=== PATIENT | male | born 1985 | race African-American/Black ===

== ENCOUNTER 2019-11-05 11:48 | Emergency (ER) | payer OTHER, SELFPAY ==
--- NOTE | ~2019-11-05 | CT_ITS ---
EXAMINATION: CT abdomen pelvis w con DATE: 11/05/2019 16:29 INDICATION: Abdominal pain. Nausea and vomiting. TECHNIQUE: Computed tomography (CT) of the abdomen and pelvis was performed with 100 mL Omnipaque 350 intravenous contrast. Automated exposure control and iterative reconstruction technique were employe d. The dose-length product was 675.19 mGy-cm. COMPARISON: CT abdomen and pelvis 07/19/2019, 06/01/19, ultrasound 07/20/19 FINDINGS: The visualized portions of the lung bases demonstrate mild atelectasis. No pleural effusion . The heart size is normal. No pericardial effusion. There is a 9 mm hyperenhancing mass in left hepa tic lobe, likely benign. The gallbladder, spleen, pancreas, adrenal glands, and right kidney are norm al. There is a 1.8 cm heterogeneous hyperdense mass in left kidney measuring soft tissue attenuation. There is diastases of the rectus abdominis muscles with an umbilical hernia containing nonobstructed small bowel. The prostate is mildly enlarged. There is diverticulosis of the colon without evidence of diverticulitis. The appendix is normal. There are no pathologically enlarged lymph nodes. There is no free intraperitoneal fluid. There is mild thoracic spondylosis. IMPRESSION: 1. Umbilical hernia containing nonobstructed small bowel. 2. 1.8 cm left kidney mass suspicious for renal cell carcinoma. Abdomen MRI without and with contrast is recommended. Reviewed, dictated and finalized at location A. MAINTAINER IMPRESSION: 1. Umbilical hernia containing nonobstructed small bowel. 2. 1.8 cm left kidney mass suspicious for renal cell carcinoma. Abdomen MRI wit hout and with contrast is recommended.
[2019-11-05 12:20] VITALS: BP 155/110; PULSE 96; RESP 16; TEMP 37.3; O2SAT 98
--- NOTE | 2019-11-05 13:15 | ED.ABDPAIN ---
HPI - Abdominal Pain General Chief Complaint: Abdominal Pain Stated Complaint: ABD PAIN X1D Time Seen by Provider: 11/05/19 13:06 Source: patient Mode of arrival: ambulatory Limitations: no limitations History of Present Illness HPI narrative: The pt is a 34 y/o male who presents to the ED c/o diffuse ABD pain onset one day ago. Pt states that the pain started in the right flank, but became more diffuse. Pt states that he vomited five times, and has had multiple episodes of diarrhea. Pt states that he has not tried any pain medication. Pt reports nausea and left-sided CP, but denies cough. MD elicited complaint: abdominal pain Onset (ago): day(s) (1) Location: diffuse (initially began in right flank ) Associated symptoms: nausea, vomiting, diarrhea and other (Left-sided CP) Treatments prior to arrival: other (None) Related Data Allergies Allergy/AdvReac Type Severity Reaction Status Date / Time codeine Allergy Mild Hives / Verified 12/07/19 13:29 Red Face morphine Allergy Mild Itching Verified 12/07/19 13:29 Review of Systems Review of Systems: Narrative: Review of Systems Respiratory: Negative for cough. Cardiovascular: Positive for left-sided chest pain. Gastrointestinal: Positive for nausea, vomiting, diffuse abdominal pain and diarrhea. All systems reviewed & are unremarkable except as noted in HPI and below PMFSH Social History Social History (Updated 12/07/19 @ 13:31 by Dunia Anderson) Social History: Smoking status: Never smoker Second hand tobacco smoke exposure: No Alcohol intake: current Drinks per week: 2 Substance use: never Substance use type: does not use Gender identity (if verbalized by the patient): Male Spiritual care concerns: No Agree to blood products: Yes Comments PCP: Dr. Shah Exam Narrative: Exam Narrative: Constitutional: Appears well-developed. No distress. HENT: Head: Normocephalic. Nose: Nose normal. Mouth/Throat: Oropharynx is clear and moist. Eyes: Conjunctiva are normal. Neck: Normal range of motion. Neck supple. Cardiovascular: Normal rate and regular rhythm. Pulmonary/Chest: Effort normal and breath sounds normal. Abdominal: Soft. There is no tenderness. Musculoskeletal: Normal range of motion. No edema. Neurological: Alert and oriented to person, place, and time. Skin: Skin is warm. No pallor. Psychiatric: Normal mood and affect. Course Consultations Consultation #1: Discussed with Dr. Prajapati, who will follow up regarding pt?s renal mass. Date: 11/05/19 Time: 17:34 Vital Signs Vital signs: Vital Signs Temperature 37.3 C 11/05/19 12:20 Pulse Rate 96 11/05/19 12:20 Respiratory Rate 16 11/05/19 12:20 Blood Pressure 155/110 H 11/05/19 12:20 Pulse Oximetry 98 11/05/19 12:20 Temperature 36.8 C 11/05/19 14:05 Pulse Rate 70 11/05/19 17:54 Respiratory Rate 14 11/05/19 17:54 Blood Pressure 152/92 H 11/05/19 17:54 Pulse Oximetry 98 11/05/19 17:54 MDM - Abdominal Pain Lab Data Result diagrams: 11/05/19 13:40 11/05/19 13:40 Labs: Lab Results 11/05/19 11/05/19 11/05/19 Range/Units 13:31 13:40 13:40 WBC 8.5 (4.5-10.0) K/mm3 RBC 5.49 (4.6-6.20) M/mm3 Hgb 15.9 (14.0-18.0) g/dL Hct 47.5 (42.0-52.0) % MCV 86.5 (80-100) fl MCH 29.0 (26-34) pg MCHC 33.5 (32-36) g/dl RDW 13.1 (11.5-14.5) % Plt Count 282 (150-375) k/mm3 MPV 10.3 (7.4-10.4) fl Immature Gran % (Auto) 0.5 (0-0.5) % Neut % (Auto) 53.7 (45.5-73.1) % Lymph % (Auto) 34.0 (18.3-44.2) % [place] % (Auto) 9.0 H (2.6-8.5) % Eos % (Auto) 1.6 (0-4.4) % Baso % (Auto) 1.2 (0.2-1.2) % Lymph # (Auto) 2.89 (0.9-3.2) K/mm3 [place] # (Auto) 0.8 H (0.1-0.6) K/mm3 Eos # (Auto) 0.1 (0-0.3) K/mm3 Baso # (Auto) 0.1 (0.0-0.1) K/mm3 Abs Immat Gran (auto) 0.04 H (0.00-0.031) K/mm3 Absolute Neuts (auto) 4.6 (1
--- NOTE | 2019-11-05 13:18 | ECG_ITS ---
Measurements Intervals [place] Rate: 76 P: 70 NM: 150 QRS: 27 QRSD: 93 T: 6 QT: 369 QTc: 415 Interpretive Statements SINUS RHYTHM NONSPECIFIC ST ELEVATION ANT/LAT LEADS BORDERLINE ST-T WAVE ABNORMALITY- INFERIOR LEADS BORDERLINE ECG Electronically Signed On 11-05-2019 16:27:18 DIGITAL PRINT OPERATOR by Muarizio Malin D.O.
[2019-11-05 13:49] LABS: Add Urine Microscopic? YES; Appearance Urine Clear (Clear); Bilirubin Urine Negative (Negative); Blood Urine Negative (Negative); Color Urine Yellow (Yellow); Glucose Urine UA Negative (Negative); Ketones Urine Negative (Negative); Leukocyte Esterase Ur Negative LEU/UL (Negative); Mucus Urine Rare /lpf; Nitrate Urine Negative (Negative); Protein Urine 1+ mg/dL (Negative); RBC Urine 0-2 /hpf (0-2); Squamous Epithelial Cell Urine Rare /hpf (Few); Urobilinogen Urine Negative mg/dL (<2.0); WBC Urine 0-3 /hpf
[2019-11-05 13:50] LABS: Specific Grav Ur 1.042 (1.001-1.035)
[2019-11-05 13:52] LABS: Basophils Absolute Auto 0.1 K/mm3 (0.0-0.1); Basophils Percent Auto 1.2 % (0.2-1.2); Eosinophils Absolute Auto 0.1 K/mm3 (0-0.3); Eosinophils Percent Auto 1.6 % (0-4.4); Hematocrit 47.5 % (42.0-52.0); Hemoglobin 15.9 g/dL (14.0-18.0); Immature Granulocyte Absolute 0.04 K/mm3 (0.00-0.031); Immature Granulocyte Percent A 0.5 % (0-0.5); Lymphocytes Absolute Auto 2.89 K/mm3 (0.9-3.2); Mean Corpuscular HGB Conc 33.5 g/dl (32-36); Mean Corpuscular Volume 86.5 fl (80-100); Mean Platelet Volume 10.3 fl (7.4-10.4); Monocytes Absolute Auto 0.8 K/mm3 (0.1-0.6); Neutrophils Absolute Auto 4.6 K/mm3 (1.3-6.7); Neutrophils Percent Auto 53.7 % (45.5-73.1); Platelet Count Result 282 k/mm3 (150-375); Red Blood Count 5.49 M/mm3 (4.6-6.20); Red Cell Distribution Width 13.1 % (11.5-14.5); White Blood Count 8.5 K/mm3 (4.5-10.0)
[2019-11-05] MEDS: DICYCLOMINE HCL INJ 20 MG/2 ML VIAL IM (13:54)
[2019-11-05] MEDS: SODIUM CHLORIDE 0.9% IV 1,000 ML 999 ML IV CONT (13:54)
[2019-11-05] MEDS: ONDANSETRON INJ 4 MG/2 ML VIAL IV PUSH (13:54)
[2019-11-05 14:05] VITALS: BP 158/72; PULSE 77; RESP 16; TEMP 36.8; O2SAT 98
[2019-11-05 14:20] LABS: Troponin I < 0.012 ng/mL (0.000-0.034)
[2019-11-05 15:54] LABS: Alanine Aminotransferase 27 U/L (4-50); Albumin Level 4.9 g/dL (3.5-5.1); Alkaline Phosphatase 78 U/L (38-126); Aspartate Amino Transferase 39 U/L (17-59); Bilirubin,Total 0.7 mg/dL (0.2-1.3); Blood Urea Nitrogen 14 mg/dL (9-20); Calcium 9.2 mg/dL (8.4-10.2); Carbon Dioxide 26 mmol/L (22-30); Chloride 95 mmol/L (98-107); Estimated CRCL calculation 124 ml/min; Estimated Glomerular Filt Rate > 60; Glucose 98 mg/dL (75-110); Lipase 50 U/L (23-300); Potassium 3.6 mmol/L (3.4-5.0); Sodium 137 mmol/L (137-145)
--- NOTE | 2019-11-05 15:57 | PC.NURSE ---
Called lab to ask about a CMP and Lipase that was sent down at 1400 and staff stated they would run it. Completed at 1556.
[2019-11-05] MEDS: KETOROLAC 30 MG/ML VIAL (*BKC) IV PUSH (16:15)
[2019-11-05 16:36] VITALS: BP 143/93; PULSE 77; RESP 18; O2SAT 98
[2019-11-05 17:27] LABS: Troponin I < 0.012 ng/mL (0.000-0.034)
[2019-11-05 17:54] VITALS: BP 152/92; PULSE 70; RESP 14; O2SAT 98
== END 2019-11-05 18:00 | disposition home or self-care (01) ==
PROVIDERS: Emergency Provider Emergency Medicine; PCP Internal Medicine
DX: K52.9 Noninfective gastroenteritis and colitis, unspecified (principal); N28.89 Other specified disorders of kidney and ureter; K42.9 Umbilical hernia without obstruction or gangrene
CPT/HCPCS: 36415; 74177; 80053; 81001; 83690; 84484; 85025; 93005; 96361; 96372; 96374; 96375; 99284; J0500; J1885; J2405; J7030; Q9967

== ENCOUNTER 2019-11-27 07:02 | Inpatient (IN) | payer OTHER, SELFPAY ==
--- NOTE | ~2019-11-27 | CT_ITS ---
EXAMINATION: CT abdomen pelvis w con INDICATION: Diffuse abdominal pain TECHNIQUE: Computed tomographic images of the abdomen and pelvis were obtained after the administrati on of 100 cc of Omnipaque 350 intravenous contrast. The dose-length product (DLP) was 659.62 mGy-cm. Automated exposure control and iterative reconstruction technique were employed. COMPARISON: 11/05/2019 FINDINGS: The lung bases are clear. The heart size is normal. Again seen is a 9 mm hyperenhancing mas s of the left hepatic lobe, likely focal nodular hyperplasia or flash filling hemangioma. The spleen, gallbladder, and adrenal glands are normal. There is a small amount of fluid near the tail of the pa ncreas. The pancreas itself appears to enhance normally. The right kidney is unremarkable. There is a 2.2 cm enhancing mass of the left kidney. No pathologically enlarged abdominal or pelvic lymph nodes are identified. There is no free intraperitoneal gas or evidence of bowel obstruction. The appendix is normal. Again noted is diastases of the rectus abdominis muscles with an umbilical hernia containi ng nonobstructed small bowel. IMPRESSION: 1. Findings suggestive of acute interstitial edematous pancreatitis with acute peripancreatic fluid c ollection. 2. Indeterminate left kidney mass again seen, concerning for renal cell carcinoma. Nonemergent follow -up by MRI without and with contrast is recommended. Reviewed, dictated and finalized at location A. ENGINEER IMPRESSION: 1. Findings suggestive of acute interstitial edematous pancreatitis with acute peripancreatic fluid collection. 2. Indeterminate left kidney mass again seen, concerning for renal cell carcino ma. Nonemergent follow-up by MRI without and with contrast is recommended.
[2019-11-27 07:07] VITALS: BP 174/99; PULSE 95; RESP 16; TEMP 37.1; O2SAT 100
--- NOTE | 2019-11-27 07:11 | ED.ABDPAIN ---
HPI - Abdominal Pain General Chief Complaint: Abdominal Pain Stated Complaint: ABD PAIN Time Seen by Provider: 11/27/19 07:05 Source: patient Mode of arrival: ambulatory Limitations: no limitations History of Present Illness HPI narrative: 34 yo male who presents with diffuse abdominal pain with vomiting and diarrhea. Patient states at 2 am he develop diffuse abdominal pain . He states the nurse at his job gave him GERD medication. He has had multiple episodes of nausea and vomiting with his pain. He also reports 1 episodes of nonbloody diarrhea. He denies fever or chills . He states his pain has gradually worsened . He was evaluated at [place] 3 weeks ago for similar pain , and he is scheduled for follow up appointment with PCP next month. MD elicited complaint: abdominal pain Onset (ago): hour(s) (5 hours) Pain Consistency: constant Location: diffuse Severity: similar to previous episodes Associated symptoms: nausea, vomiting and diarrhea Related Data Home Medications Medication Instructions Recorded Confirmed metoprolol tartrate 50 mg BID 11/27/19 11/27/19 Allergies Allergy/AdvReac Type Severity Reaction Status Date / Time codeine Allergy Unknown Hives / Verified 11/27/19 07:10 Red Face morphine Allergy Unknown Itching Verified 11/27/19 07:10 Review of Systems Review of Systems: All systems reviewed & are unremarkable except as noted in HPI and below Constitutional: Constitutional: Reports weakness Respiratory: Respiratory: Denies cough and Denies dyspnea Gastrointestinal: Gastrointestinal: Reports abdominal pain, Reports diarrhea, Reports nausea and Reports vomiting Genitourinary: Genitourinary: Denies hematuria, Denies oliguria and Denies dysuria Musculoskeletal: Musculoskeletal: Reports back pain PMFSH Past Medical History Medical History Gout HTN (hypertension) Pancreatitis Surgical History Surgical History No history of previous surgery Family History Family History Father Hypertension Social History Social History Smoking status: Never smoker Alcohol intake: current Drinks per week: 2 Substance use: never Gender identity (if verbalized by the patient): Male Spiritual care concerns: No Agree to blood products: Yes Exam Narrative: Exam Narrative: GENERAL: Well-appearing, well-nourished, and in mild distress. HEAD: Normocephalic, atraumatic EYES: PERRLA and EOMI, conjunctiva clear without discharge THROAT:Mucous membranes moist, Oropharynx normal without erythema, exudate, peritonsillar swelling or fluctuance NECK: Supple, without lymphadenopathy or mass RESPIRATORY: No respiratory distress, Airway patent, Respirations non-labored, Clear to auscultation without rales, rhonchi or wheeze HEART: Regular rate and rhythm. No murmur heard. Normal peripheral pulses. ABDOMEN: Soft,Diffuse, nondistended, normal active bowel sounds. No masses. No rebound or guarding, No organomegaly. EXTREMITIES: No edema, normal strength with full range of motion. SKIN: Warm, dry, normal color without rash NEURO: Alert and oriented x3. CN 2-12 grossly intact. No focal deficits. PSYCH: Normal mood and affect. Course Reevaluation(s) Reevaluation #1: I Discussed with patient that he may have pancreatitis. He states he has not drank alcohol in awhile but his family member states that is not true and they believe he was drunk 3 days ago. Patient states his pain started after eating an dish with corn and spices. Date: 11/27/19 Time: 07:41 Consultations Consultation #1: accepts patient to the medical floor. Date: 11/27/19 Time: 09:13 Vital Signs Vital signs: Vital Signs Temperature 98.8 F 11/27/19 07:07 Pulse Rate 95 11/27/19 07:07 Re
[2019-11-27 07:23] LABS: Basophils Absolute Auto 0.1 K/mm3 (0.0-0.1); Basophils Percent Auto 1.3 % (0.2-1.2); Eosinophils Absolute Auto 0.2 K/mm3 (0-0.3); Hematocrit 50.5 % (42.0-52.0); Hemoglobin 17.1 g/dL (14.0-18.0); Immature Granulocyte Absolute 0.02 K/mm3 (0.00-0.031); Immature Granulocyte Percent A 0.2 % (0-0.5); Lymphocytes Absolute Auto 2.42 K/mm3 (0.9-3.2); Mean Corpuscular HGB Conc 33.9 g/dl (32-36); Mean Corpuscular Hemoglobin 28.8 pg (26-34); Mean Corpuscular Volume 85.2 fl (80-100); Mean Platelet Volume 10.3 fl (7.4-10.4); Monocytes Absolute Auto 0.5 K/mm3 (0.1-0.6); Monocytes Percent Auto 6.1 % (2.6-8.5); Neutrophils Absolute Auto 5.4 K/mm3 (1.3-6.7); Neutrophils Percent Auto 62.4 % (45.5-73.1); Platelet Count Result 291 k/mm3 (150-375); Red Blood Count 5.93 M/mm3 (4.6-6.20); Red Cell Distribution Width 12.8 % (11.5-14.5); White Blood Count 8.6 K/mm3 (4.5-10.0)
[2019-11-27 07:34] LABS: Alanine Aminotransferase 58 U/L (4-50); Albumin Level 5.1 g/dL (3.5-5.1); Alkaline Phosphatase 107 U/L (38-126); Aspartate Amino Transferase 89 U/L (17-59); Blood Urea Nitrogen 18 mg/dL (9-20); Calcium 9.7 mg/dL (8.4-10.2); Carbon Dioxide 25 mmol/L (22-30); Chloride 93 mmol/L (98-107); Estimated Glomerular Filt Rate > 60; Glucose 100 mg/dL (75-110); Lipase 644 U/L (23-300); Potassium 3.9 mmol/L (3.4-5.0); Sodium 139 mmol/L (137-145)
[2019-11-27] MEDS: ONDANSETRON INJ 4 MG/2 ML VIAL IV PUSH ×2 (07:43→08:41)
[2019-11-27] MEDS: KETOROLAC 30 MG/ML VIAL (*BKC) IV PUSH (07:43)
[2019-11-27] MEDS: LACTATED RINGERS 1,000 ML 999 ML IV CONT (07:44)
[2019-11-27 08:27] LABS: Add Urine Microscopic? YES; Appearance Urine Clear (Clear); Bilirubin Urine Negative (Negative); Blood Urine Negative (Negative); Color Urine Yellow (Yellow); Glucose Urine UA Negative (Negative); Ketones Urine Trace mg/dL (Negative); Leukocyte Esterase Ur Negative LEU/UL (Negative); Mucus Urine Rare /lpf; Nitrate Urine Negative (Negative); Protein Urine 1+ mg/dL (Negative); RBC Urine 0-2 /hpf (0-2); Squamous Epithelial Cell Urine Rare /hpf (Few); Urobilinogen Urine Negative mg/dL (<2.0); WBC Urine 0-3 /hpf
[2019-11-27 08:30] LABS: Specific Grav Ur 1.058 (1.001-1.035)
[2019-11-27] MEDS: HYDROMORPHONE HCL 1 MG/ML INJ IV PUSH ×2 (08:41→11:57)
[2019-11-27 09:17] VITALS: BP 158/93; PULSE 85; RESP 16; O2SAT 100
--- NOTE | 2019-11-27 10:05 | ADMGEN ---
This patient, Baldomero Gallego, was admitted to Medical Room 341-01. Patient/family oriented to hospital policies and general routines including ID bracelet, bed and alarms, visiting hours, pain management, procedures, bathroom and other care routines, personal items, smoking policy, room service/diet, and visiting hours. Valuables list has been completed. Information on how to activate the Rapid Response Team has been discussed. Patient/Family are encouraged to report perceived risks to care and to ask questions if they do not understand what they are told or what they should do.
[2019-11-27] MEDS: LACTATED RINGERS 1,000 ML 125 ML IV CONT ×2 (10:12→19:12)
[2019-11-27 10:16] VITALS: BP 153/98; PULSE 77; RESP 18; TEMP 36.2; O2SAT 97; BMI 34.2
--- NOTE | 2019-11-27 12:07 | PM.IMHP ---
H&P: HPI History of Present Illness Chief complaint: acute pancreatitis Narrative: Baldomero Gallego is a 34 year old male was in his usual state of health until 2:00 a.m. this morning. He was at work on his lunch break when he developed severe epigastric pain radiating to lower substernal area and straight through to his back. It was associated with nausea vomiting and loose stool. No bleeding. No fevers chills or sweats. The pain was similar to his acute pancreatitis in July of 2019. EMS was summoned he is brought to the emergency department we was found to have evidence for pancreatic inflammation on CT scan as well as elevated lipase. Patient was drinking a pt of hard liquor every week in day and every day off work. Since July he is decreased to only twice a week and some days only 2 beers some days a pt of vodka Review of Systems Review of Systems: All systems reviewed & are unremarkable except as noted in HPI and below PMFSH Past Medical History Medical History Gout HTN (hypertension) Pancreatitis Surgical History Surgical History No history of previous surgery Family History Family History Father Hypertension Social History Social History Smoking status: Never smoker Alcohol intake: current Drinks per week: 2 Substance use: never Gender identity (if verbalized by the patient): Male Spiritual care concerns: No Agree to blood products: Yes Meds Home Medications and Allergies Home Medications Medication Instructions Recorded Confirmed Type metoprolol tartrate 50 mg BID 11/27/19 11/27/19 History Allergies Allergy/AdvReac Type Severity Reaction Status Date / Time codeine Allergy Unknown Hives / Verified 11/27/19 07:10 Red Face morphine Allergy Unknown Itching Verified 11/27/19 07:10 Vital Signs Vital Signs - 24 hr 11/27/19 07:07 11/27/19 09:17 11/27/19 10:16 Temperature 98.8 F 97.2 F L Pulse Rate 95 85 77 Respiratory Rate 16 16 18 Blood Pressure 174/99 H 158/93 H 153/98 H Pulse Oximetry 100 100 97 Exam Narrative: Exam Narrative: HEENT: EOMI, PERRL, pharyngeal mucosa pink and intact NECK: No JVD, adenopathy, or thyromegaly CHEST: Clear to auscultation. Normal effort. HEART: NL S1/S2, regular, no murmur ABDOMEN: BS+, soft, exquisite tenderness in the epigastrium Marli palpation without mass or bruit. No rebound or guarding. EXTREMITIES: No cyanosis, edema, or clubbing NEUROLOGIC: CN intact and symmetric to inspection. MUSCULOSKELETAL: Tone and strength symmetric. PSYCH: Alert. Oriented to person, place, and time. H&P: Results Labs Labs: Short CBC 11/27/19 Range/Units 07:16 WBC 8.6 (4.5-10.0) K/mm3 Hgb 17.1 (14.0-18.0) g/dL Hct 50.5 (42.0-52.0) % Plt Count 291 (150-375) k/mm3 BMP 11/27/19 07:16 Sodium 139 Potassium 3.9 Chloride 93 L Carbon Dioxide 25 BUN 18 Creatinine 0.90 Glucose 100 Calcium 9.7 Liver Function 11/27/19 Range/Units 07:16 Total Bilirubin 2.0 H (0.2-1.3) mg/dL AST 89 H (17-59) U/L ALT 58 H (4-50) U/L Alkaline Phosphatase 107 (38-126) U/L Albumin 5.1 (3.5-5.1) g/dL Urine 11/27/19 Range/Units 08:14 Urine Color Yellow (Yellow) Urine Appearance Clear (Clear) Urine pH 5.0 (5.0-9.0) Ur Specific [place] 1.058 H (1.001-1.035) Urine Protein 1+ H (Negative) mg/dL Urine Glucose (UA) Negative (Negative) mg/dL Assessment and Plan Assessment and plan (1) Pancreatitis: Code(s): K85.90 - Acute pancreatitis without necrosis or infection, unspecified Status: Acute Assessment and Plan: Bowel rest IVF Analgesics f/u lab (2) HTN (hypertension): Code(s): I10 - Essential (primary) hypertension
[2019-11-27 14:00] VITALS: BP 142/88; PULSE 72; RESP 18; TEMP 36.4; O2SAT 98
[2019-11-27] MEDS: THIAMINE HCL 200 MG/2 ML VIAL 100 MG IV PUSH (14:03)
[2019-11-27] MEDS: LORAZEPAM INJ 2 MG/ML VIAL 1 MG IV PUSH (14:03)
[2019-11-27] MEDS: HYDROMORPHONE HCL 2 MG/ML VIAL IV PUSH ×3 (16:12→23:25)
[2019-11-27 20:34] VITALS: BP 144/99; PULSE 98; RESP 18; TEMP 36.9; O2SAT 95
[2019-11-28] MEDS: HYDROMORPHONE HCL 2 MG/ML VIAL IV PUSH ×7 (02:37→21:38)
[2019-11-28] MEDS: LACTATED RINGERS 1,000 ML 125 ML IV CONT (04:35)
[2019-11-28 04:36] VITALS: BP 163/91; PULSE 97; RESP 16; TEMP 36.9; O2SAT 95
--- NOTE | 2019-11-28 04:40 | PC.NURSE ---
PO was sips of water to take meds.
[2019-11-28 05:38] LABS: Hematocrit 45.3 % (42.0-52.0); Hemoglobin 14.8 g/dL (14.0-18.0); Mean Corpuscular HGB Conc 32.7 g/dl (32-36); Mean Corpuscular Hemoglobin 28.6 pg (26-34); Mean Corpuscular Volume 87.5 fl (80-100); Mean Platelet Volume 10.5 fl (7.4-10.4); Platelet Count Result 174 k/mm3 (150-375); Red Blood Count 5.18 M/mm3 (4.6-6.20); Red Cell Distribution Width 12.4 % (11.5-14.5); White Blood Count 6.7 K/mm3 (4.5-10.0)
[2019-11-28] MEDS: ONDANSETRON INJ 4 MG/2 ML VIAL IV PUSH ×2 (06:14→10:49)
[2019-11-28 06:31] LABS: Hepatitis B Surface Antigen Negative (Negative)
[2019-11-28 06:36] LABS: HAV RESULT Negative (Negative)
[2019-11-28 06:49] LABS: Hepatitis C Virus Antibody Negative (Negative)
[2019-11-28 07:08] LABS: Alanine Aminotransferase 44 U/L (4-50); Albumin Level 3.9 g/dL (3.5-5.1); Alkaline Phosphatase 72 U/L (38-126); Aspartate Amino Transferase 53 U/L (17-59); Bilirubin,Total 1.4 mg/dL (0.2-1.3); Blood Urea Nitrogen 13 mg/dL (9-20); Calcium 8.8 mg/dL (8.4-10.2); Carbon Dioxide 27 mmol/L (22-30); Chloride 98 mmol/L (98-107); Estimated CRCL calculation 124 ml/min; Estimated Glomerular Filt Rate > 60; Glucose 96 mg/dL (75-110); Potassium 3.6 mmol/L (3.4-5.0); Sodium 136 mmol/L (137-145)
[2019-11-28 07:13] LABS: Lipase 2263 U/L (23-300)
[2019-11-28] MEDS: THIAMINE HCL 200 MG/2 ML VIAL 100 MG IV PUSH (09:34)
[2019-11-28 14:00] VITALS: BP 166/111; PULSE 113; RESP 22; TEMP 36.7; O2SAT 95
--- NOTE | 2019-11-28 15:21 | PM.IMPN ---
Progress Note: A&P Assessment and Plan (1) Pancreatitis: Code(s): K85.90 - Acute pancreatitis without necrosis or infection, unspecified Status: Acute Assessment and Plan: Bowel rest IVF Analgesics f/u lab with increased lipase 11/28, perhaps peaking, continue to monitor (2) HTN (hypertension): Code(s): I10 - Essential (primary) hypertension Status: Acute Assessment and Plan: Hold PO meds and monitor (3) Alcohol abuse: Code(s): F10.10 - Alcohol abuse, uncomplicated Status: Acute Assessment and Plan: CIWA protocol Subjective Date/time seen: 11/28/19 15:21 Interval history: Epigastric to back a little worse today, but controlled with hydromorphone. No n/v. No cp or sob. No diarrhea. No edema. Review of Systems Review of Systems: All systems reviewed & are unremarkable except as noted in HPI and below Exam Narrative: Exam Narrative: HEENT: EOMI, PERRL, pharyngeal mucosa pink and intact NECK: No JVD CHEST: Clear to auscultation. Normal effort. HEART: NL S1/S2, regular, no murmur ABDOMEN: BS+, soft, exquisite tenderness in the epigastrium Marli palpation without mass or bruit. No rebound or guarding. EXTREMITIES: No cyanosis, edema, or clubbing NEUROLOGIC: CN intact and symmetric to inspection. MUSCULOSKELETAL: Tone and strength symmetric. PSYCH: Alert. Oriented to person, place, and time. Objective Data Vital Signs Vital Signs: Vital Signs - 24 hr 11/27/19 20:34 11/28/19 04:36 11/28/19 14:00 Temperature 98.4 F 98.4 F 98.0 F Pulse Rate 98 97 113 H Respiratory Rate 18 16 22 H Blood Pressure 144/99 H 163/91 H 166/111 H Pulse Oximetry 95 95 95 Intake/Output Intake/Output: Intake & Output 11/25/19 11/26/19 11/27/19 11/28/19 23:59 23:59 23:59 23:59 Intake Total 2200 1766 Output Total 850 Balance 1350 1766 Meds/Results Medications: Active Medications Generic Name Dose Route Start Last Admin Trade Name Freq PRN Reason Stop Dose Admin Diphenhydramine HCl 25 mg 11/27/19 20:12 11/28/19 15:10 Benadryl Cap PO 25 mg Q6H PRN Administration Itching Hydromorphone HCl 2 mg 11/27/19 12:54 11/28/19 15:08 Dilaudid Inj IV PUSH 2 mg Q3H PRN Administration Pain Rated 7-10 Potassium Cl/Dextrose/Lact Ringer's 1,000 mls @ 100 mls/hr 11/28/19 08:45 11/28/19 10:44 Kcl 20 Meq/D5lr IV CONT 100 mls/hr .Q10H MINOO Administration Lorazepam 1 mg 11/27/19 12:43 11/27/19 14:03 Ativan Inj IV PUSH 1 mg Q4H PRN Administration Anxiety or CIWA score >7 Ondansetron HCl 4 mg 11/27/19 09:14 11/28/19 10:49 Zofran Inj IV PUSH 4 mg Q4H PRN Administration Nausea Thiamine HCl 100 mg 11/28/19 09:00 11/28/19 09:34 Thiamine Hcl Inj IV PUSH 100 mg QAM MINOO Administration Radiology Results: ITS Impressions Abdomen/Pelvis CT 11/27/19 08:08 IMPRESSION: 1. Findings suggestive of acute interstitial edematous pancreatitis with acute peripancreatic fluid collection. 2. Indeterminate left kidney mass again seen, concerning for renal cell carcinoma. Nonemergent follow-up by MRI without and with contrast is recommended. Labs Labs: Laboratory Results - last 24 hr 11/28/19 11/28/19 11/28/19 05:15 05:15 05:15 WBC 6.7 RBC 5.18 Hgb 14.8 Hct 45.3 MCV 87.5 MCH 28.6 MCHC 32.7 RDW 12.4 Plt Count 174 MPV 10.5 H Sodium 136 L Potassium 3.6 Chloride 98 Carbon Dioxide 27 BUN 13 D Creatinine 0.80 Estim Creat Clear Calc 124 Estimated GFR > 60 Glucose 96 Calcium 8.8 Total Bilirubin 1.4 H AST 53 ALT 44 Alkaline Phosphatase 72 Total Protein 7.0 Albumin 3.9 Lipase 2263 H Hepatitis A IgM Ab Negative Hep Bs Antigen Negative Hepatitis C Ab Screen Negative Quality VTE Prophylaxis VTE prophylaxis: mechanical ordered
[2019-11-28 21:42] VITALS: BP 139/86; PULSE 117; RESP 16; TEMP 37; O2SAT 95
[2019-11-29] MEDS: HYDROMORPHONE HCL 2 MG/ML VIAL IV PUSH ×8 (00:52→22:45)
[2019-11-29] MEDS: ACETAMINOPHEN 325 MG TABLET 650 MG PO (05:55)
[2019-11-29 06:00] VITALS: BP 143/88; PULSE 116; RESP 16; TEMP 36.5; O2SAT 97
[2019-11-29 06:04] LABS: Hematocrit 44.2 % (42.0-52.0); Hemoglobin 14.6 g/dL (14.0-18.0); Mean Corpuscular Hemoglobin 28.8 pg (26-34); Mean Corpuscular Volume 87.2 fl (80-100); Mean Platelet Volume 10.8 fl (7.4-10.4); Platelet Count Result 177 k/mm3 (150-375); Red Blood Count 5.07 M/mm3 (4.6-6.20); Red Cell Distribution Width 12.4 % (11.5-14.5)
[2019-11-29 06:20] LABS: Alanine Aminotransferase 30 U/L (4-50); Albumin Level 4.2 g/dL (3.5-5.1); Alkaline Phosphatase 72 U/L (38-126); Aspartate Amino Transferase 33 U/L (17-59); Bilirubin,Total 1.5 mg/dL (0.2-1.3); Blood Urea Nitrogen 8 mg/dL (9-20); Calcium 8.9 mg/dL (8.4-10.2); Carbon Dioxide 26 mmol/L (22-30); Chloride 95 mmol/L (98-107); Estimated CRCL calculation 101 ml/min; Estimated Glomerular Filt Rate > 60; Glucose 113 mg/dL (75-110); Lipase 458 U/L (23-300); Potassium 3.7 mmol/L (3.4-5.0); Sodium 135 mmol/L (137-145)
[2019-11-29] MEDS: THIAMINE HCL 200 MG/2 ML VIAL 100 MG IV PUSH (08:38)
[2019-11-29 14:00] VITALS: BP 145/93; PULSE 102; RESP 18; TEMP 36.1; O2SAT 94
--- NOTE | 2019-11-29 14:08 | PM.IMPN ---
Progress Note: A&P Assessment and Plan (1) Pancreatitis: Code(s): K85.90 - Acute pancreatitis without necrosis or infection, unspecified Status: Acute Assessment and Plan: Bowel rest IVF Analgesics f/u lab with increased lipase 11/28, perhaps peaking, as it declined 11/29 to 458 Change hydromorphone to q 2h prn Clinically improved (2) HTN (hypertension): Code(s): I10 - Essential (primary) hypertension Status: Acute Assessment and Plan: Hold PO meds and monitor (3) Alcohol abuse: Code(s): F10.10 - Alcohol abuse, uncomplicated Status: Acute Assessment and Plan: [facility] protocol Subjective Date/time seen: 11/29/19 14:08 Interval history: Epigastric to back a little better today, but controlled with hydromorphone. But analgesia only for 30 min or so. No n/v. No cp or sob. No diarrhea. No edema. Review of Systems Review of Systems: All systems reviewed & are unremarkable except as noted in HPI and below Exam Narrative: Exam Narrative: HEENT: EOMI, PERRL, pharyngeal mucosa pink and intact NECK: No JVD CHEST: Clear to auscultation. Normal effort. HEART: NL S1/S2, regular, no murmur ABDOMEN: BS+, soft, exquisite tenderness in the epigastrium Marli palpation without mass or bruit. No rebound or guarding. EXTREMITIES: No cyanosis, edema, or clubbing NEUROLOGIC: CN intact and symmetric to inspection. MUSCULOSKELETAL: Tone and strength symmetric. PSYCH: Alert. Oriented to person, place, and time. Objective Data Vital Signs Vital Signs: Vital Signs - 24 hr 11/28/19 21:42 11/29/19 06:00 Temperature 98.6 F 97.7 F Pulse Rate 117 H 116 H Respiratory Rate 16 16 Blood Pressure 139/86 143/88 H Pulse Oximetry 95 97 Intake/Output Intake/Output: Intake & Output 11/26/19 11/27/19 11/28/19 11/29/19 23:59 23:59 23:59 23:59 Intake Total 2200 2766 1000 Output Total 850 1100 900 Balance 1350 1666 100 Meds/Results Medications: Active Medications Generic Name Dose Route Start Last Admin Trade Name Freq PRN Reason Stop Dose Admin Acetaminophen 650 mg 11/29/19 05:36 11/29/19 05:55 Tylenol Tablet PO 650 mg Q4H PRN Administration Headache Diphenhydramine HCl 25 mg 11/27/19 20:12 11/29/19 11:18 Benadryl Cap PO 25 mg Q6H PRN Administration Itching Hydromorphone HCl 2 mg 11/29/19 14:07 Dilaudid Inj IV PUSH Q2H PRN Pain Rated 7-10 Potassium Cl/Dextrose/Lact Ringer's 1,000 mls @ 100 mls/hr 11/28/19 08:45 11/29/19 08:37 Kcl 20 Meq/D5lr IV CONT 100 mls/hr .Q10H MINOO Administration Lorazepam 1 mg 11/27/19 12:43 11/27/19 14:03 Ativan Inj IV PUSH 1 mg Q4H PRN Administration Anxiety or CIWA score >7 Ondansetron HCl 4 mg 11/27/19 09:14 11/28/19 10:49 Zofran Inj IV PUSH 4 mg Q4H PRN Administration Nausea Thiamine HCl 100 mg 11/28/19 09:00 11/29/19 08:38 Thiamine Hcl Inj IV PUSH 100 mg QAM MINOO Administration Radiology Results: ITS Impressions Abdomen/Pelvis CT 11/27/19 08:08 IMPRESSION: 1. Findings suggestive of acute interstitial edematous pancreatitis with acute peripancreatic fluid collection. 2. Indeterminate left kidney mass again seen, concerning for renal cell carcinoma. Nonemergent follow-up by MRI without and with contrast is recommended. Labs Labs: Laboratory Results - last 24 hr 11/29/19 11/29/19 11/29/19 05:54 05:54 05:54 WBC 10.0 RBC 5.07 Hgb 14.6 Hct 44.2 MCV 87.2 MCH 28.8 MCHC 33.0 RDW 12.4 Plt Count 177 MPV 10.8 H Sodium 135 L Potassium 3.7 Chloride 95 L Carbon Dioxide 26 BUN 8 L D Creatinine 1.00 Estim Creat Clear Calc 101 Estimated GFR > 60 Glucose 113 H Calcium 8.9 Magnesium 2.0 Total Bilirubin 1.5 H AST 33 ALT 30 Alkaline Phosphatase 72 Total Protein 8.0 Albumin 4.2 Lipase 458 H Quality VTE Prophylaxis VT
[2019-11-30] VITALS: BP 137/96; PULSE 98; RESP 16; TEMP 36.4; O2SAT 94
[2019-11-30] MEDS: HYDROMORPHONE HCL 2 MG/ML VIAL IV PUSH ×7 (01:09→20:49)
[2019-11-30 06:00] VITALS: BP 143/91; PULSE 90; RESP 16; TEMP 36.2; O2SAT 95
[2019-11-30 06:37] LABS: Hematocrit 41.5 % (42.0-52.0); Hemoglobin 13.7 g/dL (14.0-18.0); Mean Corpuscular Hemoglobin 28.8 pg (26-34); Mean Corpuscular Volume 87.4 fl (80-100); Mean Platelet Volume 10.8 fl (7.4-10.4); Platelet Count Result 153 k/mm3 (150-375); Red Blood Count 4.75 M/mm3 (4.6-6.20); Red Cell Distribution Width 12.2 % (11.5-14.5); White Blood Count 5.9 K/mm3 (4.5-10.0)
[2019-11-30 06:45] LABS: Alanine Aminotransferase 24 U/L (4-50); Albumin Level 4.1 g/dL (3.5-5.1); Alkaline Phosphatase 59 U/L (38-126); Aspartate Amino Transferase 28 U/L (17-59); Bilirubin,Total 1.2 mg/dL (0.2-1.3); Blood Urea Nitrogen 9 mg/dL (9-20); Calcium 9.1 mg/dL (8.4-10.2); Carbon Dioxide 32 mmol/L (22-30); Chloride 97 mmol/L (98-107); Estimated CRCL calculation 111 ml/min; Estimated Glomerular Filt Rate > 60; Glucose 84 mg/dL (75-110); Lipase 139 U/L (23-300); Potassium 3.6 mmol/L (3.4-5.0); Sodium 139 mmol/L (137-145)
[2019-11-30] MEDS: THIAMINE HCL 200 MG/2 ML VIAL 100 MG IV PUSH (09:43)
[2019-11-30] MEDS: ONDANSETRON INJ 4 MG/2 ML VIAL IV PUSH (09:43)
[2019-11-30] MEDS: PANTOPRAZOLE SODIUM IV 40 MG VIAL IV PUSH ×2 (12:44→20:49)
[2019-11-30 14:00] VITALS: BP 162/90; PULSE 64; RESP 18; TEMP 36.7; O2SAT 99
[2019-11-30 14:42] VITALS: BP 144/87
--- NOTE | 2019-11-30 15:02 | PM.IMPN ---
Progress Note: A&P Assessment and Plan (1) Pancreatitis: Code(s): K85.90 - Acute pancreatitis without necrosis or infection, unspecified Status: Acute Assessment and Plan: Bowel rest IVF Analgesics f/u lab with increased lipase 11/28, perhaps peaking, as it declined 11/29 to 458, 11/30 139 Change hydromorphone to q 4-6hh prn Clinically improved Trial of clear liquids with BM, increase bowel sounds, and normalized lipase (2) HTN (hypertension): Code(s): I10 - Essential (primary) hypertension Status: Acute Assessment and Plan: Hold PO meds and monitor probable restart lobe metoprolol 12/01 (3) Alcohol abuse: Code(s): F10.10 - Alcohol abuse, uncomplicated Status: Acute Assessment and Plan: CIWA protocol, no signs of withdrawal Subjective Date/time seen: 11/30/19 15:02 Interval history: Date of visit 11/30 34-year-old epigastric male with hypertension recurrent alcoholic induced pancreatitis. Pain slightly better today but did have emesis blood tingened. No n/v. No cp or sob. No diarrhea. No edema. Had BM this a.m. Exam Narrative: Exam Narrative: Blood pressure 144/86 pulse is 64 sat 99% on room air afebrile HEENT: EOMI, PERRL, NECK: No JVD supple CHEST: Clear to auscultation. Normal effort. HEART: NL S1/S2, regular, no murmur ABDOMEN: BS+, soft, still some epigastric tenderness but increased bowel sounds No rebound or guarding. EXTREMITIES: No cyanosis, edema, NEUROLOGIC: CN intact and symmetric to inspection PSYCH: Alert. Oriented to person, place, and time. Objective Data Vital Signs Vital Signs: Vital Signs - 24 hr 11/30/19 00:00 11/30/19 06:00 11/30/19 14:00 Temperature 36.4 C L 36.2 C L 36.7 C Pulse Rate 98 90 64 Respiratory Rate 16 16 18 Blood Pressure 137/96 H 143/91 H 162/90 H Pulse Oximetry 94 95 99 11/30/19 14:42 Temperature Pulse Rate Respiratory Rate Blood Pressure 144/87 H Pulse Oximetry Intake/Output Intake/Output: Intake & Output 11/27/19 11/28/19 11/29/19 11/30/19 23:59 23:59 23:59 23:59 Intake Total 2200 2766 2000 1000 Output Total 850 1100 1800 1175 Balance 1350 1666 200 -175 Meds/Results Medications: Active Medications Generic Name Dose Route Start Last Admin Trade Name Freq PRN Reason Stop Dose Admin Acetaminophen 650 mg 11/29/19 05:36 11/29/19 05:55 Tylenol Tablet PO 650 mg Q4H PRN Administration Headache Diphenhydramine HCl 25 mg 11/27/19 20:12 11/30/19 01:09 Benadryl Cap PO 25 mg Q6H PRN Administration Itching Hydromorphone HCl 2 mg 11/30/19 15:01 Dilaudid Inj IV PUSH Q4-6H PRN Pain Rated 7-10 Potassium Cl/Dextrose/Lact Ringer's 1,000 mls @ 100 mls/hr 11/28/19 08:45 11/30/19 07:27 Kcl 20 Meq/D5lr IV CONT 100 mls/hr .Q10H MINOO Administration Labetalol HCl 20 mg 11/29/19 14:10 Normodyne Inj IV PUSH Q6H PRN BP at or above 160/100 Lorazepam 1 mg 11/27/19 12:43 11/27/19 14:03 Ativan Inj IV PUSH 1 mg Q4H PRN Administration Anxiety or CIWA score >7 Ondansetron HCl 4 mg 11/27/19 09:14 11/30/19 09:43 Zofran Inj IV PUSH 4 mg Q4H PRN Administration Nausea Pantoprazole Sodium 40 mg 11/30/19 11:35 11/30/19 12:44 Protonix Iv IV PUSH 40 mg Q12HR MINOO Administration Thiamine HCl 100 mg 11/28/19 09:00 11/30/19 09:43 Thiamine Hcl Inj IV PUSH 100 mg QAM MINOO Administration Radiology Results: ITS Impressions Abdomen/Pelvis CT 11/27/19 08:08 IMPRESSION: 1. Findings suggestive of acute interstitial edematous pancreatitis with acute peripancreatic fluid collection. 2. Indeterminate left kidney mass again seen, concerning for renal cell carcinoma. Nonemergent follow-up by MRI without and with contrast is recommended. Labs Labs: Laboratory Results - last 24 hr 11/30/19 11/30/19 05:46 05:46 WBC 5.9 RBC 4.75 Hgb 13.7 L Hct 41.5 L MCV 87.4 MCH
[2019-11-30 20:46] VITALS: BP 144/91; PULSE 108; RESP 16; TEMP 36.5; O2SAT 100
[2019-12-01] VITALS: BP 175/93; PULSE 86; RESP 16; TEMP 36.6; O2SAT 100
[2019-12-01] MEDS: HYDROMORPHONE HCL 2 MG/ML VIAL IV PUSH ×3 (00:55→10:03)
[2019-12-01 04:23] LABS: Hepatitis B Core Ab Total Nonreactive (Nonreactive)
[2019-12-01 06:00] VITALS: BP 149/99; PULSE 98; RESP 16; TEMP 36.1; O2SAT 98
[2019-12-01 07:42] LABS: Hematocrit 41.7 % (42.0-52.0); Hemoglobin 14.2 g/dL (14.0-18.0); Mean Corpuscular HGB Conc 34.1 g/dl (32-36); Mean Corpuscular Hemoglobin 29.1 pg (26-34); Mean Corpuscular Volume 85.5 fl (80-100); Mean Platelet Volume 10.8 fl (7.4-10.4); Platelet Count Result 175 k/mm3 (150-375); Red Blood Count 4.88 M/mm3 (4.6-6.20); Red Cell Distribution Width 11.9 % (11.5-14.5)
[2019-12-01 07:58] LABS: Alanine Aminotransferase 21 U/L (4-50); Albumin Level 4.1 g/dL (3.5-5.1); Alkaline Phosphatase 67 U/L (38-126); Aspartate Amino Transferase 25 U/L (17-59); Blood Urea Nitrogen 5 mg/dL (9-20); Calcium 9.4 mg/dL (8.4-10.2); Carbon Dioxide 28 mmol/L (22-30); Chloride 97 mmol/L (98-107); Estimated CRCL calculation 111 ml/min; Estimated Glomerular Filt Rate > 60; Glucose 116 mg/dL (75-110); Lipase 98 U/L (23-300); Potassium 4.1 mmol/L (3.4-5.0); Sodium 138 mmol/L (137-145)
[2019-12-01] MEDS: PANTOPRAZOLE SODIUM IV 40 MG VIAL IV PUSH ×2 (08:32→20:15)
[2019-12-01] MEDS: THIAMINE HCL 200 MG/2 ML VIAL 100 MG IV PUSH (08:33)
[2019-12-01] MEDS: methylPREDNISolone SOD SUCC 125 MG VIAL 60 MG IV PUSH (11:51)
--- NOTE | 2019-12-01 12:45 | PM.IMPN ---
Progress Note: A&P Assessment and Plan (1) Pancreatitis: Code(s): K85.90 - Acute pancreatitis without necrosis or infection, unspecified Status: Acute Assessment and Plan: Bowel rest initially and have started clear liquids, still nauseated Analgesics f/u lab with increased lipase 11/28, perhaps peaking, as it declined 11/29 to 458, 11/30 139, 11/21 79 Change hydromorphone to q 4-6hh prn and decrease to 1mg Clinically improved (2) HTN (hypertension): Code(s): I10 - Essential (primary) hypertension Status: Acute Assessment and Plan: Restart metoprolol and start amlodipine (3) Alcohol abuse: Code(s): F10.10 - Alcohol abuse, uncomplicated Status: Acute Assessment and Plan: CIWA protocol, no signs of withdrawal (4) Gout: Code(s): M10.9 - Gout, unspecified Status: Acute Assessment and Plan: start solumedrol Subjective Date/time seen: 12/01/19 12:45 Interval history: Date of visit 12/01. 34-year-old black male with hypertension and recurrent alcoholic induced pancreatitis. Pain slightly better today but did have emesis again after clear liquids last pm. No n/v. No cp or sob. No diarrhea. No edema. Had BM again this a.m.. Right foot hurts too, gout Exam Narrative: Exam Narrative: Blood pressure 146/92 pulse is 66 sat 99% on room air afebrile HEENT: EOMI, PERRL, NECK: No JVD supple CHEST: Clear to auscultation. Normal effort. HEART: NL S1/S2, regular, no murmur ABDOMEN: BS+, soft, still some epigastric tenderness but increased bowel sounds No rebound or guarding. EXTREMITIES: No cyanosis, edema, R ankle and foot slightly swollen and tender NEUROLOGIC: CN intact and symmetric to inspection PSYCH: Alert. Oriented to person, place, and time. Objective Data Vital Signs Vital Signs: Vital Signs - 24 hr 11/30/19 14:00 11/30/19 14:42 11/30/19 20:46 Temperature 36.7 C 36.5 C Pulse Rate 64 108 H Respiratory Rate 18 16 Blood Pressure 162/90 H 144/87 H 144/91 H Pulse Oximetry 99 100 12/01/19 00:00 12/01/19 06:00 Temperature 36.6 C 36.1 C L Pulse Rate 86 98 Respiratory Rate 16 16 Blood Pressure 175/93 H 149/99 H Pulse Oximetry 100 98 Intake/Output Intake/Output: Intake & Output 11/28/19 11/29/19 11/30/19 12/01/19 23:59 23:59 23:59 23:59 Intake Total 2766 2000 2480 1420 Output Total 1100 1800 1175 1200 Balance 2228 673 4099 220 Meds/Results Medications: Active Medications Generic Name Dose Route Start Last Admin Trade Name Freq PRN Reason Stop Dose Admin Acetaminophen 650 mg 11/29/19 05:36 11/29/19 05:55 Tylenol Tablet PO 650 mg Q4H PRN Administration Headache Diphenhydramine HCl 25 mg 11/27/19 20:12 11/30/19 01:09 Benadryl Cap PO 25 mg Q6H PRN Administration Itching Hydromorphone HCl 1 mg 12/01/19 10:35 Dilaudid Inj IV PUSH Q4-6H PRN Pain Rated 7-10 Potassium Cl/Dextrose/Lact Ringer's 1,000 mls @ 50 mls/hr 11/28/19 08:45 12/01/19 05:12 Kcl 20 Meq/D5lr IV CONT 100 mls/hr .Q20H MINOO Infusion Labetalol HCl 20 mg 11/29/19 14:10 Normodyne Inj IV PUSH Q6H PRN BP at or above 160/100 Lorazepam 1 mg 11/27/19 12:43 11/27/19 14:03 Ativan Inj IV PUSH 1 mg Q4H PRN Administration Anxiety or CIWA score >7 Ondansetron HCl 4 mg 11/27/19 09:14 11/30/19 09:43 Zofran Inj IV PUSH 4 mg Q4H PRN Administration Nausea Pantoprazole Sodium 40 mg 11/30/19 11:35 12/01/19 08:32 Protonix Iv IV PUSH 40 mg Q12HR MINOO Administration Thiamine HCl 100 mg 11/28/19 09:00 12/01/19 08:33 Thiamine Hcl Inj IV PUSH 100 mg QAM MINOO Administration Radiology Results: ITS Impressions Abdomen/Pelvis CT 11/27/19 08:08 IMPRESSION: 1. Findings suggestive of acute interstitial edematous pancreatitis with acute peripancreatic fluid collection. 2. Indeterminate left kidney mass again seen, concerning for renal cell c
[2019-12-01 14:00] VITALS: BP 153/89; PULSE 101; RESP 18; TEMP 36.2; O2SAT 97
[2019-12-01] MEDS: AMLODIPINE BESYLATE 5 MG TABLET PO (14:14)
[2019-12-01] MEDS: HYDROMORPHONE HCL 2 MG/ML VIAL 1 MG IV PUSH ×2 (14:15→19:30)
[2019-12-01 20:12] VITALS: BP 147/98; PULSE 103; RESP 18; TEMP 36.2; O2SAT 97
[2019-12-01 20:14] VITALS: PULSE 103
[2019-12-01] MEDS: METOPROLOL TARTRATE 50 MG TAB PO (20:14)
[2019-12-01 21:47] VITALS: BP 125/85
[2019-12-02] MEDS: HYDROMORPHONE HCL 2 MG/ML VIAL 1 MG IV PUSH ×2 (01:00→05:18)
[2019-12-02 05:22] VITALS: BP 150/93; PULSE 93; RESP 16; TEMP 36.4; O2SAT 98
[2019-12-02 08:04] LABS: Hematocrit 42.6 % (42.0-52.0); Hemoglobin 14.2 g/dL (14.0-18.0); Mean Corpuscular HGB Conc 33.3 g/dl (32-36); Mean Corpuscular Hemoglobin 28.7 pg (26-34); Mean Corpuscular Volume 86.1 fl (80-100); Mean Platelet Volume 10.5 fl (7.4-10.4); Platelet Count Result 214 k/mm3 (150-375); Red Blood Count 4.95 M/mm3 (4.6-6.20); White Blood Count 13.5 K/mm3 (4.5-10.0)
[2019-12-02 08:20] LABS: Alanine Aminotransferase 19 U/L (4-50); Albumin Level 4.4 g/dL (3.5-5.1); Alkaline Phosphatase 66 U/L (38-126); Aspartate Amino Transferase 20 U/L (17-59); Bilirubin,Total 0.7 mg/dL (0.2-1.3); Blood Urea Nitrogen 8 mg/dL (9-20); Calcium 9.6 mg/dL (8.4-10.2); Carbon Dioxide 26 mmol/L (22-30); Chloride 96 mmol/L (98-107); Estimated CRCL calculation 111 ml/min; Estimated Glomerular Filt Rate > 60; Glucose 126 mg/dL (75-110); Lipase 37 U/L (23-300); Potassium 4.1 mmol/L (3.4-5.0); Sodium 139 mmol/L (137-145); Uric Acid 6.4 mg/dL (3.5-8.5)
[2019-12-02 09:49] VITALS: PULSE 92
[2019-12-02] MEDS: METOPROLOL TARTRATE 50 MG TAB PO (09:49)
[2019-12-02] MEDS: PANTOPRAZOLE SODIUM IV 40 MG VIAL IV PUSH (09:49)
[2019-12-02] MEDS: AMLODIPINE BESYLATE 5 MG TABLET PO (09:49)
[2019-12-02] MEDS: THIAMINE HCL 200 MG/2 ML VIAL 100 MG IV PUSH (09:49)
[2019-12-02] MEDS: methylPREDNISolone SOD SUCC 125 MG VIAL 60 MG IV PUSH (12:14)
--- NOTE | 2019-12-02 18:15 | PM.DS ---
DS: Diagnosis Admitting Diagnosis Admitting Diagnosis: Acute pancreatitis without necrosis or infection, unspecified Discharge Diagnosis (1) Pancreatitis: Code(s): K85.90 - Acute pancreatitis without necrosis or infection, unspecified Status: Acute Assessment and Plan: Bowel rest initially and have started clear liquids 11/30 and advanced to full diet on the which he tolerated. Analgesics f/u lab with increased lipase 11/28, perhaps peaking, as it declined 11/29 to 458, 11/30 139, 12/01 79 Tapered narcotics and gave script for 15 Plush 5/325 on discharge Clinically much improved Once again advise no ETOH for fear of recurrent pancreatitis, eventual chronic pancreatitis, and diabetes (2) HTN (hypertension): Code(s): I10 - Essential (primary) hypertension Status: Acute Assessment and Plan: Restart metoprolol . Added amlodipine when pressure was running high but systolics low 100s so will discharge on his metoprolol 50 b.i.d. (3) Alcohol abuse: Code(s): F10.10 - Alcohol abuse, uncomplicated Status: Acute Assessment and Plan: no signs of withdrawal while here (4) Gout: Code(s): M10.9 - Gout, unspecified Status: Acute Assessment and Plan: Developed gout and right ankle and foot 12/01 given IV Solu-Medrol than and 12/02 and discharged on prednisone 40 daily for 5 more days. WBC elevated day of discharge due to gout and steroids DS: Summary Hospital Course Hospital Course: 34-year-old hypertensive black male alcoholic admitted with recurrent pancreatitis. With bowel rest narcotics and IV hydration symptoms improve lipase fell. He is tolerating a regular diet by the time of discharge. Instructed once again not to drink alcohol and will return to work on the . Time Spent with Patient Time attestation: Total time spent providing and/or coordinating discharge services: 35 minutes Exam Narrative: Exam Narrative: Condition on discharge Blood pressure 140/86 pulse 72 regular afebrile Lungs clear CV regular rate rhythm Abdomen is soft minimal tenderness bowel sounds present Extremities without edema to trace edema around the right ankle with minimal warmth and tenderness there He was up ambulating taking and diet and has had several bowel movements. Discharge home to return to work on the activity as tolerated and again instructed no ETOH DS: Data Data Completed and Pending Labs on day of discharge: Labs from last 24 hours 12/02/19 12/02/19 07:43 07:43 WBC 13.5 H RBC 4.95 Hgb 14.2 Hct 42.6 MCV 86.1 MCH 28.7 MCHC 33.3 RDW 12.0 Plt Count 214 MPV 10.5 H Sodium 139 Potassium 4.1 Chloride 96 L Carbon Dioxide 26 BUN 8 L Creatinine 0.90 Estim Creat Clear Calc 111 Estimated GFR > 60 Glucose 126 H Uric Acid 6.4 Calcium 9.6 Total Bilirubin 0.7 AST 20 ALT 19 Alkaline Phosphatase 66 Total Protein 9.0 H Albumin 4.4 Lipase 37 Discharge Plan Discharge Attending physician on discharge: Keo Pérez Discharging Clinician: Keo Pérez Patient Disposition: Home, Self-Care Activity: as tolerated Diet: low sodium and low fat Discharge Instructions: RTW Tuesday 12/05 Patient Instructions: Antibiotic Form, Pancreatitis (DC), Pain Management (DC) Stand Alone Forms: General Discharge Information, Work/School Release IP Follow-up/Referrals: Pablo,Perry Ferguson MD [Primary Care Provider] - 2 Weeks Discharge Medications: New prednisone 20 mg tablet 20 mg PO BID Qty: 10 RF: 0 hydrocodone-acetaminophen 5-325 mg tablet 1 tablet PO Q6H PRN (Reason: pain) Qty: 15 RF: 0 Continued metoprolol tartrate 50 mg tablet 50 mg BID RF: 0 Date of admission: 11/28/19 09:20 Primary Care Provider: PabloPerry Admitting Provider: Mason Arzate Discharge Date/Time: 12/02/19 12:40 Attending physician on admission: Timo
== END 2019-12-02 12:40 | disposition home or self-care (01) | DRG 440 ==
LOC: ANHED 09:22 → ANH3MED 09:39
PROVIDERS: Admitting Provider Internal Medicine; Emergency Provider General Practice; PCP Internal Medicine; Visit Provider Internal Medicine
DX: K85.20 Alcohol induced acute pancreatitis without necrosis or infection (principal); I10 Essential (primary) hypertension; F10.10 Alcohol abuse, uncomplicated; M10.9 Gout, unspecified; K21.9 Gastro-esophageal reflux disease without esophagitis; Z23 Encounter for immunization
CPT/HCPCS: 36415; 74177; 80053; 81001; 83690; 83735; 84550; 85025; 85027; 86704; 86709; 86803; 87340; 90471; 90686; 96361; 96365; 96374; 96375; 96376; 99285; A9270; C9113; G0008; G0378; J0131; J1170; J1885; J2060; J2405; J2930; J3411; J3480; J7120; Q9967

== ENCOUNTER 2020-08-11 21:09 | Emergency (ER) | payer OTHER, SELFPAY ==
--- NOTE | ~2020-08-11 | CT_ITS ---
EXAMINATION: CT abdomen pelvis w con DATE: 08/11/2020 22:59 INDICATION: Generalized abdominal pain. TECHNIQUE: Computed tomography (CT) of the abdomen and pelvis was performed with 100 mL Omnipaque 350 intravenous contrast. Automated exposure control and iterative reconstruction technique were employe d. The dose-length product was 596.57 mGy-cm. COMPARISON: CT abdomen and pelvis 11/27/2019, 07/19/19, 06/01/19 FINDINGS: The visualized portions of the lung bases are clear without pneumonia or pleural effusion. The heart size is normal. No pericardial effusion. There is diffuse hepatic steatosis. The gallbladde r, spleen, pancreas, adrenal glands, and right kidney are normal. There is a 2.2 cm heterogeneous mas s in left kidney. There is diverticulosis of the colon without evidence of diverticulitis. The append ix is normal. There are no dilated loops of bowel. There is an umbilical hernia containing nonobstruc phyllis small bowel. There is diastases of the rectus abdominis muscles. There are no pathologically enla rged lymph nodes. There is no free intraperitoneal fluid. IMPRESSION: 1. Umbilical hernia containing nonobstructed small bowel. 2. Stable 2.2 cm left kidney mass suspicious for renal cell carcinoma. Abdomen MRI without and with c ontrast is recommended. 3. Diffuse hepatic steatosis. Reviewed, dictated and finalized at location A. PHONE REPAIRER IMPRESSION: 1. Umbilical hernia containing nonobstructed small bowel. 2. Stable 2.2 cm left kidney mass suspicious for renal cell carcinoma. Abdomen MRI without and with contrast is recommended. 3. Diffuse hepatic steatosis.
[2020-08-11 21:12] VITALS: BP 164/93; PULSE 97; RESP 16; TEMP 36.6; O2SAT 97
--- NOTE | 2020-08-11 21:18 | ED.ABDPAIN ---
HPI - Abdominal Pain General Chief Complaint: Abdominal Pain Stated Complaint: abd pain Time Seen by Provider: 08/11/20 21:18 Source: patient and family Mode of arrival: ambulatory Limitations: no limitations History of Present Illness HPI narrative: Patient is a 34-year-old male with a history of alcoholism and pancreatitis who presents for evaluation of abdominal pain, nausea, vomiting and diarrhea. Patient states diarrhea began earlier today, with abdominal pain throughout his abdomen developing this evening around 5:30 PM. Pain is diffuse throughout the abdomen with radiation to the flanks. He has had numerous episodes of nonbloody, nonbilious emesis. He denies fever or chills. Patient states his last drink of alcohol was yesterday. He denies any history of alcohol withdrawal seizures or withdrawals. He states he typically drinks a 24 ounce beer with some hard liquor as well each day. No alcohol today. Related Data Allergies Allergy/AdvReac Type Severity Reaction Status Date / Time codeine Allergy Mild Hives / Verified 08/11/20 21:41 Red Face morphine Allergy Mild Itching Verified 08/11/20 21:41 Review of Systems Review of Systems: Narrative: CONSTITUTIONAL: Denies fever, chills, or sweats. CARDIOVASCULAR: Denies chest pain, palpitations, or edema. RESPIRATORY: Denies cough or dyspnea. GASTROINTESTINAL: Reports abdominal pain, nausea, vomiting and diarrhea GENITOURINARY: Denies dysuria or hematuria. SKIN: Denies rash or itching. MUSCULOSKELETAL: Denies back pain, joint pain, or myalgia. NEUROLOGIC: Denies headache, numbness, or weakness. [facility] Past Medical History Medical History (Updated 08/11/20 @ 23:17 by Lizbeth Nichols MD) Alcohol abuse Gout HTN (hypertension) Pancreatitis Surgical History Surgical History No history of previous surgery Family History Family History Father Hypertension Social History Social History Social History: Smoking status: Never smoker Second hand tobacco smoke exposure: No Alcohol intake: current Drinks per week: 2 Substance use: never Substance use type: does not use Gender identity (if verbalized by the patient): Male Spiritual care concerns: No Agree to blood products: Yes Exam Narrative: Exam Narrative: GENERAL: Awake, alert, conversant HEAD: Normocephalic, atraumatic. EYES: PERRLA and EOMI. ENT: Nares clear, no rhinorrhea or epistaxis. Mucous membranes moist. NECK: Supple. CHEST: No respiratory distress, breathing even and non labored HEART: Regular rate, sinus rhythm ABDOMEN:Non distended, tender to palpation in all 4 quadrants, there is epigastric tenderness as well, no rebound, nonrigid, no guarding EXTREMITIES: Normal range of motion. No edema. SKIN: Warm, dry, no rash. NEURO:No focal deficits. Alert and oriented x3 Course Vital Signs Vital signs: Vital Signs Temperature 36.6 C 08/11/20 21:12 Pulse Rate 97 08/11/20 21:12 Respiratory Rate 16 08/11/20 21:12 Blood Pressure 164/93 H 08/11/20 21:12 Pulse Oximetry 97 08/11/20 21:12 Temperature 36.6 C 08/11/20 22:21 Pulse Rate 109 H 08/11/20 23:08 Respiratory Rate 16 08/11/20 23:08 Blood Pressure 162/80 H 08/11/20 23:08 Pulse Oximetry 95 08/11/20 23:08 MDM - Abdominal Pain MDM Narrative Medical decision making narrative: Patient presenting for evaluation of nausea, vomiting and diarrhea. Patient has diffuse abdominal pain, no peritoneal signs. Hematemesis may, ABCs are intact and vital signs are notable for mild tachycardia. Patient is afebrile. Laboratory results are reassuring. No leukocytosis. No acute kidney injury or electrolyte derangement. No severe transaminitis or hyperbilirubinemia. No UTI. Patient was given 2 L of IV fluid, antiemetic, pain medication
[2020-08-11] MEDS: ONDANSETRON INJ 4 MG/2 ML VIAL IV PUSH (21:49)
[2020-08-11] MEDS: SODIUM CHLORIDE 0.9% IV 2,000 ML 999 ML IV CONT (21:51)
[2020-08-11 21:59] LABS: Basophils Absolute Auto 0.1 K/mm3 (0.0-0.1); Basophils Percent Auto 1.5 % (0.2-1.2); Eosinophils Absolute Auto 0.1 K/mm3 (0-0.3); Eosinophils Percent Auto 1.4 % (0-4.4); Hemoglobin 16.4 g/dL (14.0-18.0); Immature Granulocyte Absolute 0.02 K/mm3 (0.00-0.031); Immature Granulocyte Percent A 0.3 % (0-0.5); Lymphocytes Absolute Auto 2.25 K/mm3 (0.9-3.2); Lymphocytes Percent Auto 30.9 % (18.3-44.2); Mean Corpuscular HGB Conc 33.5 g/dl (32-36); Mean Corpuscular Hemoglobin 29.1 pg (26-34); Mean Corpuscular Volume 86.9 fl (80-100); Mean Platelet Volume 9.7 fl (7.4-10.4); Monocytes Absolute Auto 0.5 K/mm3 (0.1-0.6); Monocytes Percent Auto 6.9 % (2.6-8.5); Neutrophils Absolute Auto 4.3 K/mm3 (1.3-6.7); Platelet Count Result 341 k/mm3 (150-375); Red Blood Count 5.64 M/mm3 (4.6-6.20); Red Cell Distribution Width 13.6 % (11.5-14.5); White Blood Count 7.3 K/mm3 (4.5-10.0)
[2020-08-11 22:21] VITALS: TEMP 36.6
[2020-08-11 22:27] LABS: Add Urine Microscopic? YES; Appearance Urine Clear (Clear); Bilirubin Urine Negative (Negative); Blood Urine Negative (Negative); Color Urine Yellow (Yellow); Glucose Urine UA Negative (Negative); Ketones Urine 1+ mg/dL (Negative); Leukocyte Esterase Ur Negative LEU/UL (Negative); Mucus Urine Few /lpf; Nitrate Urine Negative (Negative); Protein Urine 2+ mg/dL (Negative); RBC Urine 0-2 /hpf (0-2); Squamous Epithelial Cell Urine Rare /hpf (Few); Urobilinogen Urine Negative mg/dL (<2.0); WBC Urine 0-3 /hpf
[2020-08-11 22:29] LABS: Specific Grav Ur 1.032 (1.001-1.035)
[2020-08-11] MEDS: diphenhydrAMINE HCl INJ 50 MG/ML VIAL 25 MG IV PUSH (22:57)
[2020-08-11] MEDS: HYDROmorphone HCL INJ (*CRX) 1 MG/ML SYR 0.5 MG IV PUSH (22:58)
[2020-08-11 23:02] LABS: Alanine Aminotransferase 24 U/L (4-50); Albumin Level 4.3 g/dL (3.5-5.1); Alkaline Phosphatase 86 U/L (38-126); Anion Gap 18 mmol/L (8-16); Aspartate Amino Transferase 40 U/L (17-59); Bilirubin,Total 1.1 mg/dL (0.2-1.3); Blood Urea Nitrogen 14 mg/dL (9-20); Calcium 8.9 mg/dL (8.4-10.2); Carbon Dioxide 19 mmol/L (22-30); Chloride 100 mmol/L (98-107); Estimated CRCL calculation 100 ml/min; Estimated Glomerular Filt Rate > 60; Glucose 67 mg/dL (75-110); Lipase 157 U/L (23-300); Potassium 4.1 mmol/L (3.4-5.0); Sodium 137 mmol/L (137-145)
[2020-08-11 23:08] VITALS: BP 162/80; PULSE 109; RESP 16; O2SAT 95
[2020-08-11 23:28] VITALS: TEMP 36.2
[2020-08-11 23:40] VITALS: BP 160/74; PULSE 99; RESP 17; TEMP 36.2; O2SAT 95
== END 2020-08-11 23:54 | disposition home or self-care (01) ==
PROVIDERS: Emergency Provider Emergency Medicine; PCP Family Medicine
DX: K52.9 Noninfective gastroenteritis and colitis, unspecified (principal); N28.89 Other specified disorders of kidney and ureter; I10 Essential (primary) hypertension; F10.20 Alcohol dependence, uncomplicated
CPT/HCPCS: 36415; 74177; 80053; 81001; 83690; 85025; 96361; 96374; 96375; 99284; J0131; J1170; J1200; J2405; J7030; Q9967

== ENCOUNTER 2020-08-12 10:18 | Emergency (ER) | payer OTHER, SELFPAY ==
[2020-08-12] VITALS (13 sets, daily range): BP systolic 167–178; BP diastolic 83–96; PULSE 80–90; RESP 16–27; TEMP 36.6; O2SAT 97–100
[2020-08-12 11:22] LABS: Basophils Absolute Auto 0.1 K/mm3 (0.0-0.1); Basophils Percent Auto 1.2 % (0.2-1.2); Eosinophils Absolute Auto 0.1 K/mm3 (0-0.3); Hematocrit 42.8 % (42.0-52.0); Hemoglobin 14.6 g/dL (14.0-18.0); Immature Granulocyte Absolute 0.01 K/mm3 (0.00-0.031); Immature Granulocyte Percent A 0.2 % (0-0.5); Lymphocytes Absolute Auto 2.09 K/mm3 (0.9-3.2); Lymphocytes Percent Auto 32.4 % (18.3-44.2); Mean Corpuscular HGB Conc 34.1 g/dl (32-36); Mean Corpuscular Hemoglobin 28.9 pg (26-34); Mean Corpuscular Volume 84.8 fl (80-100); Mean Platelet Volume 11.4 fl (7.4-10.4); Monocytes Absolute Auto 0.5 K/mm3 (0.1-0.6); Monocytes Percent Auto 7.8 % (2.6-8.5); Neutrophils Absolute Auto 3.6 K/mm3 (1.3-6.7); Neutrophils Percent Auto 56.4 % (45.5-73.1); Platelet Count Result 242 k/mm3 (150-375); Red Blood Count 5.05 M/mm3 (4.6-6.20); White Blood Count 6.5 K/mm3 (4.5-10.0)
[2020-08-12] MEDS: DICYCLOMINE HCL 10 MG CAPSULE 20 MG PO (11:50)
[2020-08-12] MEDS: SODIUM CHLORIDE 0.9% IV 1,000 ML 999 ML IV CONT (11:51)
[2020-08-12] MEDS: PROMETHAZINE HCL 25 MG/ML AMPUL 12.5 MG IV PUSH (11:51)
[2020-08-12 13:22] LABS: Alanine Aminotransferase 24 U/L (4-50); Albumin Level 4.2 g/dL (3.5-5.1); Alkaline Phosphatase 67 U/L (38-126); Anion Gap 10 mmol/L (8-16); Aspartate Amino Transferase 37 U/L (17-59); Bilirubin,Total 1.7 mg/dL (0.2-1.3); Blood Urea Nitrogen 10 mg/dL (9-20); Calcium 8.7 mg/dL (8.4-10.2); Carbon Dioxide 27 mmol/L (22-30); Chloride 100 mmol/L (98-107); Estimated CRCL calculation 111 ml/min; Estimated Glomerular Filt Rate > 60; Glucose 82 mg/dL (75-110); Lipase 137 U/L (23-300); Potassium 3.5 mmol/L (3.4-5.0); Sodium 137 mmol/L (137-145)
--- NOTE | 2020-08-12 14:37 | ED.ABDPAIN ---
HPI - Abdominal Pain General Chief Complaint: Abdominal Pain Stated Complaint: ABD pain seen here yesterday Time Seen by Provider: 08/12/20 10:27 History of Present Illness HPI narrative: Patient is a 34-year-old male who presents ER with abdominal pain as well as nausea and vomiting. Patient was seen here last night for the same complaints. He had lab work as well as a CT scan which showed no acute processes and he was diagnosed with gastroenteritis. Reports when he got home and got nauseated he took an antiemetic with food but he promptly threw it up which prompted his return here. Abdominal pain remains crampy nonradiating. Its mainly in the epigastrium. Related Data Allergies Allergy/AdvReac Type Severity Reaction Status Date / Time codeine Allergy Mild Hives / Verified 08/12/20 10:32 Red Face morphine Allergy Mild Itching Verified 08/12/20 10:32 Review of Systems Review of Systems: All systems reviewed & are unremarkable except as noted in HPI and below Constitutional: Constitutional: Denies chills, Denies fever(s) and Denies weakness ENT: Denies nasal congestion and Denies sore throat Cardiovascular: Cardiovascular: Denies chest pain, Denies rapid heart rate and Denies radiating jaw, neck or arm pain Respiratory: Respiratory: Denies cough and Denies dyspnea Gastrointestinal: Gastrointestinal: Reports abdominal pain, Reports nausea and Reports vomiting Genitourinary: Genitourinary: Denies dysuria and Denies urinary frequency PMFSH Past Medical History Medical History (Updated 08/12/20 @ 14:40 by Mukesh Zepeda MD) Alcohol abuse Gout HTN (hypertension) Pancreatitis Surgical History Surgical History No history of previous surgery Family History Family History Father Hypertension Social History Social History Social History: Smoking status: Never smoker Second hand tobacco smoke exposure: No Alcohol intake: current Drinks per week: 2 Substance use: never Substance use type: does not use Gender identity (if verbalized by the patient): Male Spiritual care concerns: No Agree to blood products: Yes Exam Narrative: Exam Narrative: GENERAL: Well-appearing, well-nourished, and in no acute distress. HEAD: Normocephalic, atraumatic. EYES: PERRL, EOMI CHEST: Clear to auscultation. No respiratory distress. HEART: Regular rate and rhythm. Normal peripheral pulses. ABDOMEN: Soft, nontender, nondistended. EXTREMITIES: Normal range of motion. No edema. NEURO: Alert and oriented x3. PSYCH: Normal mood and affect. Course Course Emergency Course: Unremarkable w/u. D/c. Vital Signs Vital signs: Vital Signs Temperature 97.8 F 08/12/20 10:23 Pulse Rate 81 08/12/20 10:23 Respiratory Rate 16 08/12/20 10:23 Blood Pressure 167/95 H 08/12/20 10:23 Pulse Oximetry 97 08/12/20 10:23 Temperature 97.8 F 08/12/20 10:23 Pulse Rate 85 08/12/20 11:53 Respiratory Rate 21 H 08/12/20 11:53 Blood Pressure 170/96 H 08/12/20 11:32 Pulse Oximetry 99 08/12/20 13:15 MDM - Abdominal Pain Lab Data Result diagrams: 08/12/20 11:10 08/12/20 12:59 Labs: Lab Results 08/12/20 08/12/20 08/12/20 Range/Units 11:10 12:49 12:59 WBC 6.5 (4.5-10.0) K/mm3 RBC 5.05 (4.6-6.20) M/mm3 Hgb 14.6 (14.0-18.0) g/dL Hct 42.8 (42.0-52.0) % MCV 84.8 (80-100) fl MCH 28.9 (26-34) pg MCHC 34.1 (32-36) g/dl RDW 13.0 (11.5-14.5) % Plt Count 242 (150-375) k/mm3 MPV 11.4 H (7.4-10.4) fl Immature Gran % (Auto) 0.2 (0-0.5) % Neut % (Auto) 56.4 (45.5-73.1) % Lymph % (Auto) 32.4 (18.3-44.2) % [place] % (Auto) 7.8 (2.6-8.5) % Eos % (Auto) 2.0 (0-4.4) % Baso % (Auto) 1.2 (0.2-1.2) % Lymph # (Auto) 2.0
[2020-08-12 14:47] LABS: Add Urine Microscopic? YES; Appearance Urine Clear (Clear); Bilirubin Urine Negative (Negative); Blood Urine Negative (Negative); Color Urine Yellow (Yellow); Glucose Urine UA Negative (Negative); Ketones Urine 1+ mg/dL (Negative); Leukocyte Esterase Ur Negative LEU/UL (Negative); Mucus Urine Rare /lpf; Nitrate Urine Negative (Negative); Protein Urine 1+ mg/dL (Negative); RBC Urine 0-2 /hpf (0-2); Specific Grav Ur 1.026 (1.001-1.035); Urobilinogen Urine Negative mg/dL (<2.0); WBC Urine 0-3 /hpf
== END 2020-08-12 15:08 | disposition home or self-care (01) ==
PROVIDERS: Emergency Provider Emergency Medicine; PCP Family Medicine
DX: K52.9 Noninfective gastroenteritis and colitis, unspecified (principal); M10.9 Gout, unspecified; I10 Essential (primary) hypertension
CPT/HCPCS: 36415; 80053; 81001; 83690; 85025; 96361; 96374; 99284; A9270; J2550; J7030

== ENCOUNTER 2020-11-07 04:27 | Inpatient (IN) | payer OTHER, SELFPAY ==
[2020-11-07] VITALS (8 sets, daily range): BP systolic 161–190; BP diastolic 87–109; PULSE 89–101; RESP 13–18; TEMP 36.3–36.9; O2SAT 96–99; BMI 33.7
--- NOTE | ~2020-11-07 | XR_ITS ---
XR abdomen NG/feed tube insert INDICATION: Evaluate NG tube position. TECHNIQUE: Limited KUB perform for evaluating NG tube . COMPARISON: 11/07/2020 FINDINGS: NG tube tip in the stomach. Visualized bowel gas pattern is unremarkable. IMPRESSION: 1: NG tube tip in the stomach. Reviewed, dictated and finalized at location A. D HAND
--- NOTE | ~2020-11-07 | US_ITS ---
EXAMINATION: US abdomen complete DATE: 11/13/2020 13:02 INDICATION: Left upper quadrant pain TECHNIQUE: Multiple grayscale and Doppler ultrasound images of the abdomen were obtained. COMPARISON: 11/07/2020 FINDINGS: Bowel gas obscures visualization of the pancreas. The visualized portions of the pancreas a re unremarkable. The liver demonstrates increased echogenicity, heterogenous echotexture, and decreas ed through transmission. No surface nodularity. Normal hepatopetal flow in the main portal vein. The gallbladder is normal with no abnormal wall thickening, pericholecystic fluid or stones. The normal c ommon bile duct measures 2 mm. There was no sonographic Petit sign. The visualized portions of the a heaven and inferior vena cava are normal. The right kidney measures 11.5 x 4.4 x 5.1 cm. The left kidney measures 10.7 x 5.6 x 4.4 cm. The know n suspicious left kidney mass is not clearly identified. The kidneys demonstrate normal parenchymal e chogenicity. There is no hydronephrosis. The spleen is normal in appearance and measures 10.1 cm. IMPRESSION: 1. No sonographic correlate for the patient's symptoms. 2. Diffuse hepatic steatosis. 3. Known suspicious left kidney mass not clearly identified. Reviewed, dictated and finalized at location A. [employer]ATOR V[employer]ICAL
--- NOTE | ~2020-11-07 | XR_ITS ---
EXAMINATION: XR abdomen NG/feed tube insert EXAM DATE: 11/07/2020 06:57 INDICATION: NG placement . TECHNIQUE: Frontal projection(s) of the abdomen for interpretation. Correlation is made to abdomen pe lvis CT same date. FINDINGS: Feeding tube tip and side-port project over left upper quadrant, expected location. Contra st within renal calyces from intravenous injection. Lung bases are clear. Nonobstructive upper abdomi nal bowel gas pattern. There are no osseous abnormalities identified. IMPRESSION: Feeding tube in position. Reviewed, dictated and finalized at location D. IT CONTROL ASSISTANT IMPRESSION: Feeding tube in position.
--- NOTE | ~2020-11-07 | CT_ITS ---
EXAMINATION: CT abdomen pelvis w con DATE: 11/07/2020 05:50 INDICATION: Epigastric abdominal pain TECHNIQUE: Computed tomography (CT) of the abdomen and pelvis was performed with 100 cc Omnipaque 350 intravenous contrast. Automated exposure control and iterative reconstruction technique were employe d. Exam dose: 768.13 mGy-cm total exam DLP. COMPARISON: 08/11/2020 CT abdomen pelvis FINDINGS: The lung bases are clear of infiltrate or consolidation. Normal heart size. No pericardial or pleural effusion. Very small sliding hiatal hernia. Diffuse hepatic steatosis. No hepatic space-occupying mass lesion is evident. The gallbladder is pres ent. No gallbladder wall thickening or pericholecystic fluid or stranding. No bile duct or pancreatic duct dilatation. No pancreatic mass lesion or calcification. Normal splenic size. Normal morphology of the adrenal glands. Again noted is an approximately 2.3 cm mass in the posterior medial aspect of the mid left kidney, li tracey due to hypernephroma. No right renal mass lesion or urinary tract calculus or hydroureteronephrosis. Normal caliber of the abdominal aorta. No intraperitoneal or retroperitoneal or pelvic mass lesion or adenopathy or ascites. Normal appendix. No bowel obstruction, bowel wall thickening, pneumatosis or intraperitoneal free air . The urinary bladder is relatively evacuated, which may account for moderate thickness of the urinary bladder wall. Included skeletal structures are unremarkable.; No suspicious osteolytic or osteoblastic lesion is no phyllis.. IMPRESSION: 2.4 cm probable left hypernephroma Very small sliding hiatal hernia Diffuse hepatic steatosis Reviewed, dictated and finalized at Location A. Reviewed, dictated and finalized at location A. NG LAYER
--- NOTE | 2020-11-07 04:39 | ECG_ITS ---
Measurements Intervals [place] Rate: 107 P: 77 AR: 140 QRS: 55 QRSD: 102 T: -3 QT: 325 QTc: 435 Interpretive Statements SINUS TACHYCARDIA BORDERLINE ST-T WAVE ABNORMALITY- INF/LAT LEADS BASELINE WANDER- I, II, AVR, AVL, AVF ABNORMAL ECG Electronically Signed On 11-07-2020 6:55:07 ESTATE ADMINISTRATOR by Maurizio Malin D.O.
[2020-11-07 05:01] LABS: Basophils Absolute Auto 0.1 K/mm3 (0.0-0.1); Basophils Percent Auto 1.3 % (0.2-1.2); Eosinophils Absolute Auto 0.4 K/mm3 (0-0.3); Eosinophils Percent Auto 9.4 % (0-4.4); Hematocrit 44.4 % (42.0-52.0); Hemoglobin 15.2 g/dL (14.0-18.0); Immature Granulocyte Absolute 0.01 K/mm3 (0.00-0.031); Immature Granulocyte Percent A 0.2 % (0-0.5); Immature Platelet Fraction Pct 10.2 % (0.9-11.2); Lymphocytes Absolute Auto 1.04 K/mm3 (0.9-3.2); Lymphocytes Percent Auto 22.1 % (18.3-44.2); Mean Corpuscular HGB Conc 34.2 g/dl (32-36); Mean Corpuscular Hemoglobin 29.1 pg (26-34); Mean Corpuscular Volume 85.1 fl (80-100); Mean Platelet Volume 10.6 fl (7.4-10.4); Monocytes Absolute Auto 0.4 K/mm3 (0.1-0.6); Monocytes Percent Auto 7.4 % (2.6-8.5); Neutrophils Absolute Auto 2.8 K/mm3 (1.3-6.7); Neutrophils Percent Auto 59.6 % (45.5-73.1); Platelet Count Result 99 k/mm3 (150-375); Red Blood Count 5.22 M/mm3 (4.6-6.20); Red Cell Distribution Width 13.5 % (11.5-14.5); White Blood Count 4.7 K/mm3 (4.5-10.0)
[2020-11-07 05:14] LABS: Alanine Aminotransferase 292 U/L (4-50); Albumin Level 5.1 g/dL (3.5-5.1); Alkaline Phosphatase 93 U/L (38-126); Anion Gap 21 mmol/L (8-16); Aspartate Amino Transferase 272 U/L (17-59); Bilirubin,Total 1.9 mg/dL (0.2-1.3); Blood Urea Nitrogen 15 mg/dL (9-20); Calcium 9.8 mg/dL (8.4-10.2); Carbon Dioxide 24 mmol/L (22-30); Chloride 89 mmol/L (98-107); Estimated CRCL calculation 124 ml/min; Estimated Glomerular Filt Rate > 60; Glucose 116 mg/dL (75-110); Lipase 187 U/L (23-300); Potassium 3.7 mmol/L (3.4-5.0); Sodium 134 mmol/L (137-145)
[2020-11-07] MEDS: fentaNYL CITRATE INJ (*CRX) 100 MCG/2 ML VIAL 50 MCG IV PUSH ×2 (05:15→08:18)
[2020-11-07] MEDS: ONDANSETRON INJ 4 MG/2 ML VIAL IV PUSH ×4 (05:15→20:50)
[2020-11-07 05:16] LABS: Add Urine Microscopic? YES; Appearance Urine Clear (Clear); Bilirubin Urine Negative (Negative); Blood Urine 1+ (Negative); Color Urine Amber (Yellow); Glucose Urine UA Negative (Negative); Ketones Urine 1+ mg/dL (Negative); Leukocyte Esterase Ur Negative LEU/UL (Negative); Mucus Urine Heavy /lpf; Nitrate Urine Negative (Negative); Protein Urine 3+ mg/dL (Negative); RBC Urine 0-2 /hpf (0-2); Squamous Epithelial Cell Urine Rare /hpf (Few); WBC Urine 0-3 /hpf
[2020-11-07 05:22] LABS: Specific Grav Ur 1.035 (1.001-1.035)
--- NOTE | 2020-11-07 05:47 | ED.ABDPAIN ---
HPI - Abdominal Pain General Chief Complaint: Abdominal Pain Stated Complaint: chest and abdominal pain Time Seen by Provider: 11/07/20 04:31 History of Present Illness HPI narrative: Patient is a 35-year-old male who presents ER with abdominal pain. Goes across the upper part of his abdomen. Sharp and stabbing in nature. Began 2 days ago. Feels similar to pancreatitis he has had in the past. Reports he has been drinking heavily. He reports 3 loose stools over the last 24 hours as well as up to 10 episodes of emesis. No alleviating factors at home. Denies fever/chills/sweats. Reports some mild discomfort in his right anterior chest near the ribs. Reproducible with palpation. Related Data Allergies Allergy/AdvReac Type Severity Reaction Status Date / Time codeine Allergy Mild Hives / Verified 08/12/20 10:32 Red Face morphine Allergy Mild Itching Verified 08/12/20 10:32 Review of Systems Review of Systems: All systems reviewed & are unremarkable except as noted in HPI and below Constitutional: Constitutional: Denies chills, Denies fever(s) and Denies weakness ENT: Denies nasal congestion and Denies sore throat Cardiovascular: Cardiovascular: Reports chest pain, Denies rapid heart rate and Denies radiating jaw, neck or arm pain Respiratory: Respiratory: Denies cough, Denies dyspnea and Denies wheezing Gastrointestinal: Gastrointestinal: Reports abdominal pain, Reports diarrhea, Reports nausea and Reports vomiting Musculoskeletal: Musculoskeletal: Denies back pain and Denies muscle cramps PMFSH Past Medical History Medical History (Updated 11/07/20 @ 07:46 by Mukesh Zepeda MD) Alcohol abuse Gout HTN (hypertension) Pancreatitis Surgical History Surgical History No history of previous surgery Family History Family History Father Hypertension Social History Social History Social History: Smoking status: Never smoker Second hand tobacco smoke exposure: No Alcohol intake: current Drinks per week: 2 Substance use: never Substance use type: does not use Gender identity (if verbalized by the patient): Male Spiritual care concerns: No Agree to blood products: Yes Exam Narrative: Exam Narrative: GENERAL: Well-appearing, well-nourished, and in no acute distress. HEAD: Normocephalic, atraumatic. CHEST: Clear to auscultation. No respiratory distress. HEART: Regular rate and rhythm. Normal peripheral pulses. ABDOMEN: Soft, nontender, nondistended. EXTREMITIES: Normal range of motion. No edema. SKIN: Warm, dry, no rash. NEURO: Alert and oriented x3. PSYCH: Normal mood and affect. Course Course Emergency Course: Patient still with a lot of nausea and discomfort. NG tube placed in 2 L of gastric contents evacuated. Patient reports she has not had anything to eat or drink in 2 days. Will admit for observation and bowel rest. May have gastric outlet obstruction due to mass or due to gastritis. Will have GI consulted. Vital Signs Vital signs: Vital Signs Temperature 98.4 F 11/07/20 04:35 Blood Pressure 190/109 H 11/07/20 04:35 Pulse Oximetry 98 11/07/20 04:35 Temperature 98.4 F 11/07/20 04:35 Pulse Rate 101 H 11/07/20 06:44 Respiratory Rate 18 11/07/20 06:44 Blood Pressure 161/91 H 11/07/20 06:44 Pulse Oximetry 99 11/07/20 06:44 MDM - Abdominal Pain Lab Data Result diagrams: 11/07/20 04:53 11/07/20 04:53 Labs: Lab Results 11/07/20 11/07/20 11/07/20 Range/Units 04:53 04:53 05:05 WBC 4.7 (4.5-10.0) K/mm3 RBC 5.22 (4.6-6.20) M/mm3 Hgb 15.2 (14.0-18.0) g/dL Hct 44.4 (42.0-52.0) % MCV 85.1 (80-100) fl MCH 29.1 (26-34) pg MCHC 34.2 (32-36) g/dl RDW 13.5 (11.5-14.5) % Plt Count 99 L D (1
--- NOTE | 2020-11-07 07:41 | PC.NURSE ---
Report received from PIA Hines. Pt resting on stretcher with NG tube in place, draining clear light brown fluid. Pt denies significant relief of pain and states nausea continues at this time. Awaiting disposition.
--- NOTE | 2020-11-07 08:25 | ADMGEN ---
This patient, Baldomero Gallego, was admitted to Medical Room 347-. Patient/family oriented to hospital policies and general routines including ID bracelet, bed and alarms, visiting hours, pain management, procedures, bathroom and other care routines, personal items, smoking policy, room service/diet, and visiting hours. Information on how to activate the Rapid Response Team has been discussed. Patient/Family are encouraged to report perceived risks to care and to ask questions if they do not understand what they are told or what they should do.
[2020-11-07] MEDS: SODIUM CHLORIDE 0.9% IV 1,000 ML 125 ML IV CONT ×2 (08:32→16:27)
[2020-11-07] MEDS: PANTOPRAZOLE SODIUM IV 40 MG VIAL IV PUSH (08:45)
[2020-11-07] MEDS: SODIUM CHLORIDE 0.9% INJ 10 ML (08:46)
[2020-11-07] MEDS: LORazepam INJ (*CRX) 2 MG/ML VIAL 1 MG IV PUSH (09:41)
[2020-11-07] MEDS: HYDROmorphone HCL INJ (*CRX) 1 MG/ML SYR 0.5 MG IV PUSH ×3 (09:41→20:28)
--- NOTE | 2020-11-07 13:30 | PM.IMHP ---
H&P: HPI History of Present Illness Date/Time: 11/07/20 13:30 Chief Complaint: Abdominal pain, alcohol withdrawal Narrative: Baldomero Gallego is a 35 year old male with significant history of alcohol abuse and pancreatitis, patient states he drinks on and off however for last 2 weeks he has been extensively drinking and for last 2 days patient has developed abdominal pain nausea and vomiting, patient was not able to keep anything p.o. patient thought he may be having exacerbation of his pancreatitis however his symptoms were not improving he presented emergency department for further evaluation while in the emergency depart patient was having emesis and NG tube was placed 2 L of stomach content was evacuated, CT scan of abdomen did not show any acute pancreatitis nor there elevated lipase, there is no intestinal obstruction, while in the emergency depart patient did have a BM, most likely emesis secondary to alcohol abuse, and concerned that patient may have gastric outlet obstruction, patient is high risk of DT as he had previously, currently patient is on NG and NPO will place the patient on Ativan 1 mg IV every 4-6 hours as needed and 0.5 mg Dilaudid every 4 hours as needed for pain, patient will be seen by GI and further recommendation to follow. Review of Systems Review of Systems: All systems reviewed & are unremarkable except as noted in HPI and below PMFSH Past Medical History Medical History (Updated 11/07/20 @ 07:46 by Mukesh Zepeda MD) Alcohol abuse Gout HTN (hypertension) Pancreatitis Surgical History Surgical History No history of previous surgery Family History Family History (Updated 11/07/20 @ 11:39 by Silvia Christie RN) Father Cancer Other Hypertension Social History Social History Social History: Smoking status: Never smoker Second hand tobacco smoke exposure: No Alcohol intake: current Drinks per week: 10 Substance use: never Substance use type: does not use Other substance usage details: 1 pint vodka/daily; 5 beers/week Last use: 11/06 Gender identity (if verbalized by the patient): Male Spiritual care concerns: No Agree to blood products: Yes Meds Home Medications and Allergies Home Medications Medication Instructions Recorded Confirmed Type allopurinol 100 mg tablet 100 mg PO BID #60 tablet 12/07/19 11/07/20 Rx amlodipine 5 mg tablet 5 mg PO DAILY #90 tablet 12/07/19 11/07/20 Rx metoprolol tartrate 50 mg tablet 50 mg PO BID #60 tablet 12/07/19 11/07/20 Rx dicyclomine 10 mg PO BID 5 Days #10 cap 08/11/20 11/07/20 Rx metoclopramide HCl [Reglan] 10 mg PO Q6H PRN #20 tablet 08/11/20 11/07/20 Rx simethicone 125 mg PO QID #20 cap 08/12/20 11/07/20 Rx Allergies Allergy/AdvReac Type Severity Reaction Status Date / Time codeine Allergy Mild Hives / Verified 11/07/20 11:46 Red Face morphine Allergy Mild Itching Verified 11/07/20 11:46 Vital Signs Vital Signs - 24 hr 11/07/20 04:35 11/07/20 06:44 11/07/20 09:03 Temperature 98.4 F Pulse Rate 101 H Respiratory Rate 18 Blood Pressure 190/109 H 161/91 H Pulse Oximetry 98 99 96 Exam Narrative: Exam Narrative: Moderately obese Patient is comfortable, NAD HEENT: eyes are clear and none icteric NG tube in place LUNGS:CTA HEART: RR S1S2 ABD: Bowel sounds are faint diffusely tender Lower extremities: no edema SKIN: nonjaundiced Neuro: grossly intact. H&P: Results Labs Labs: Short CBC 11/07/20 Range/Units 04:53 WBC 4.7 (4.5-10.0) K/mm3 Hgb 15.2 (14.0-18.0) g/dL Hct 44.4 (42.0-52.0) % Plt Count 99 L D (150-375) k/mm3 BMP 11/07/20 04:53 Sodium 134 L Potassium 3.7 Chloride 89 L Carbon Dioxide 24 BUN 15 D Creatinine 0.80 Glucose 116 H Calcium 9.8 Liver Function 11/07/20 Range/Units 04:53 Total B
--- NOTE | 2020-11-07 13:50 | WPDGICN ---
Assessment and Plan Assessment and plan (1) Alcoholism: Code(s): F10.20 - Alcohol dependence, uncomplicated Status: Acute (2) Alcohol abuse: Code(s): F10.10 - Alcohol abuse, uncomplicated Status: Acute Assessment and Plan: Patient with ongoing alcohol abuse will need to abstain from alcohol as this is the etiology for his protracted nausea vomiting. He has a history of pancreatitis but not evident at present. Alcohol avoidance strongly encouraged. (3) Renal mass: Code(s): N28.89 - Other specified disorders of kidney and ureter Status: Acute Assessment and Plan: Renal mass identified on CT scan , suspicious for renal cell carcinoma. Urology consultations suggested. (4) Alcoholic hepatitis: Code(s): K70.10 - Alcoholic hepatitis without ascites Status: Acute Assessment and Plan: Elevated LFTs most consistent with alcoholic hepatitis. Viral serologies are negative. Alcohol avoidance advised. Follow-up LFTs are encouraged after discharge. (5) Nausea and vomiting in adult: Code(s): R11.2 - Nausea with vomiting, unspecified Status: Acute Assessment and Plan: Nausea and vomiting appear to be related to alcohol abuse and intoxication. Plan to abstain from alcohol. Will need to watch patient closely as he may be at risk of developing withdrawal and DTs. At present NG tube advised this may be discontinued as his stomach settles down. GI Consult Note Consult date/time: 11/07/20 13:50 HPI: Baldomero Gallego is a 35 year old male I am asked to see at the request of the hospitalist service. Patient has a history of heavy ongoing alcohol abuse. Typically he will drink vodka along with beer. He drinks routinely on a daily basis for many years. Is been worse over the last 10 days. He has been hospitalized previously with pancreatitis. At this time he developed rather significant nausea vomiting prompting him to go to the emergency room last evening. An NG tube which placed which has helped some degree. CT scan of the abdomen was performed which revealed no evidence pancreatitis at this time. Liver tests were noted to be elevated consistent with alcoholic hepatitis. Patient's family history is noncontributory. Patient has no known exposure to viral illness. Review of Systems Review of Systems: All systems reviewed & are unremarkable except as noted in HPI and below PMFSH Past Medical History Medical History (Updated 11/07/20 @ 14:06 by Julius Sauer MD) Alcohol abuse Gout HTN (hypertension) Pancreatitis Surgical History Surgical History No history of previous surgery Family History Family History (Updated 11/07/20 @ 11:39 by Silvia Christie RN) Father Cancer Other Hypertension Social History Social History Social History: Smoking status: Never smoker Second hand tobacco smoke exposure: No Alcohol intake: current Drinks per week: 10 Substance use: never Substance use type: does not use Other substance usage details: 1 pint vodka/daily; 5 beers/week Last use: 11/06 Gender identity (if verbalized by the patient): Male Spiritual care concerns: No Agree to blood products: Yes Meds Home Medications and Allergies Home Medications Medication Instructions Recorded Confirmed Type allopurinol 100 mg tablet 100 mg PO BID #60 tablet 12/07/19 11/07/20 Rx amlodipine 5 mg tablet 5 mg PO DAILY #90 tablet 12/07/19 11/07/20 Rx metoprolol tartrate 50 mg tablet 50 mg PO BID #60 tablet 12/07/19 11/07/20 Rx dicyclomine 10 mg PO BID 5 Days #10 cap 08/11/20 11/07/20 Rx metoclopramide HCl [Reglan] 10 mg PO Q6H PRN #20 tablet 08/11/20 11/07/20 Rx simethicone 125 mg PO QID #20 cap 08/12/20 11/07/20 Rx Allergies Allergy/AdvReac Type Severity Reaction Status Date / Time codeine Allerg
[2020-11-07] MEDS: hydrALAZINE HCL 20 MG/ML VIAL 10 MG IV PUSH (21:13)
[2020-11-08] MEDS: SODIUM CHLORIDE 0.9% IV 1,000 ML 125 ML IV CONT ×3 (00:28→20:55)
[2020-11-08] MEDS: HYDROmorphone HCL INJ (*CRX) 1 MG/ML SYR 0.5 MG IV PUSH ×6 (00:29→21:51)
[2020-11-08 04:38] VITALS: BP 166/90
[2020-11-08] MEDS: diphenhydrAMINE HCl INJ 50 MG/ML VIAL 25 MG IV PUSH (05:13)
[2020-11-08 05:53] LABS: Hematocrit 41.5 % (42.0-52.0); Hemoglobin 13.8 g/dL (14.0-18.0); Immature Platelet Fraction Pct 10.5 % (0.9-11.2); Mean Corpuscular HGB Conc 33.3 g/dl (32-36); Mean Corpuscular Hemoglobin 29.1 pg (26-34); Mean Corpuscular Volume 87.6 fl (80-100); Mean Platelet Volume 11.1 fl (7.4-10.4); Platelet Count Result 76 k/mm3 (150-375); Red Blood Count 4.74 M/mm3 (4.6-6.20); Red Cell Distribution Width 13.5 % (11.5-14.5); White Blood Count 5.9 K/mm3 (4.5-10.0)
[2020-11-08 06:00] VITALS: BP 124/64; PULSE 91; RESP 18; TEMP 36.6; O2SAT 97
[2020-11-08 06:06] LABS: Alanine Aminotransferase 212 U/L (4-50); Albumin Level 4.6 g/dL (3.5-5.1); Alkaline Phosphatase 69 U/L (38-126); Anion Gap 12 mmol/L (8-16); Aspartate Amino Transferase 150 U/L (17-59); Bilirubin,Total 1.2 mg/dL (0.2-1.3); Blood Urea Nitrogen 16 mg/dL (9-20); Calcium 9.4 mg/dL (8.4-10.2); Carbon Dioxide 29 mmol/L (22-30); Chloride 97 mmol/L (98-107); Estimated CRCL calculation 110 ml/min; Estimated Glomerular Filt Rate > 60; Glucose 119 mg/dL (75-110); Lipase 674 U/L (23-300); Magnesium 2.3 mg/dL (1.6-2.3); Potassium 3.5 mmol/L (3.4-5.0); Sodium 138 mmol/L (137-145)
[2020-11-08] MEDS: SODIUM CHLORIDE 0.9% INJ 10 ML (08:54)
[2020-11-08] MEDS: PANTOPRAZOLE SODIUM IV 40 MG VIAL IV PUSH (08:55)
--- NOTE | 2020-11-08 10:38 | WPDGIPROGNO ---
Progress Note: A&P Assessment and Plan (1) Alcoholic hepatitis: Code(s): K70.10 - Alcoholic hepatitis without ascites Status: Acute Assessment and Plan: Patient with elevated transaminases consistent with alcohol-induced hepatitis. Strict alcohol avoidance advised. Follow-up LFTs after did started suggested. (2) Alcohol abuse: Code(s): F10.10 - Alcohol abuse, uncomplicated Status: Acute Assessment and Plan: Alcohol avoidance and rehab suggested. (3) Acute pancreatitis: Qualifiers: Acute pancreatitis complication: no infection or necrosis Pancreatitis type: unspecified pancreatitis type Qualified Code(s): K85.90 - Acute pancreatitis without necrosis or infection, unspecified Code(s): K85.90 - Acute pancreatitis without necrosis or infection, unspecified Status: Acute Assessment and Plan: Patient with acute pancreatitis on the basics of alcohol. Slowly improving. Lipase now 674. Will discontinue NG tube. Allow liquid diet as tolerated. (4) Alcoholism: Code(s): F10.20 - Alcohol dependence, uncomplicated Status: Acute (5) Renal mass: Code(s): N28.89 - Other specified disorders of kidney and ureter Status: Acute Assessment and Plan: CT scan suggest renal mass. Radiology feels this consistent with hypernephroma. Urology consultation strongly encourage. Subjective Date/time seen: 11/08/20 10:38 Patient has had no additional nausea or vomiting. Complaining of discomfort at the NG tube. He states he passed a bowel movement yesterday. Review of Systems Review of Systems: All systems reviewed & are unremarkable except as noted in HPI and below Exam Narrative: Exam Narrative: Physical exam patient is alert. NG tube in place. Clear return. Lungs are clear. Heart without murmur. Abdomen bowel sounds present soft minimal epigastric tenderness. Objective Data Vital Signs Vital Signs: Vital Signs - 24 hr 11/07/20 14:10 11/07/20 20:52 11/07/20 21:14 Temperature 97.3 F L 97.9 F Pulse Rate 101 H 89 Respiratory Rate 13 16 Blood Pressure 176/92 H 178/92 H 168/92 H Pulse Oximetry 96 97 11/07/20 22:18 11/07/20 23:14 11/08/20 04:38 Temperature 97.8 F Pulse Rate 99 Respiratory Rate 16 Blood Pressure 169/87 H 166/97 H 166/90 H Pulse Oximetry 96 11/08/20 06:00 Temperature 97.8 F Pulse Rate 91 Respiratory Rate 18 Blood Pressure 124/64 Pulse Oximetry 97 Intake/Output Intake/Output: Intake & Output 11/05/20 11/06/20 11/07/20 11/08/20 23:59 23:59 23:59 23:59 Intake Total 1000 2000 Output Total 2600 900 Balance -1600 1100 Meds/Results Medications: Active Medications Generic Name Dose Route Start Last Admin Trade Name Freq PRN Reason Stop Dose Admin Hydralazine HCl 10 mg 11/07/20 20:55 11/07/20 21:13 Hydralazine Hcl 20 Mg/Ml Vial IV PUSH 10 mg Q4H PRN Administration Blood Pressure - High Hydromorphone HCl 0.5 mg 11/07/20 09:27 11/08/20 08:59 Hydromorphone Hcl Inj (*Crx) 1 Mg/Ml Syr IV PUSH 0.5 mg Q4H PRN Administration Pain Rated 7-10 Sodium Chloride 1,000 mls @ 125 mls/hr 11/07/20 07:45 11/08/20 08:51 Normal Saline Iv IV CONT 125 mls/hr .Q8H MINOO Administration Potassium Chloride 500 mls @ 125 mls/hr 11/08/20 07:56 11/08/20 08:51 Kcl 40 Meq/D5w 500 Ml Peripheral IVPB 11/08/20 11:55 125 mls/hr ONCE ONE Administration Lorazepam 1 mg 11/07/20 09:26 11/07/20 09:41 Lorazepam Inj (*Crx) 2 Mg/Ml Vial IV PUSH 1 mg Q4H PRN Administration Anxiety Ondansetron HCl 4 mg 11/07/20 07:42 11/07/20 20:50 Ondansetron Inj 4 Mg/2 Ml Vial IV PUSH 4 mg Q4H PRN Administration Nausea Pantoprazole Sodium 40 mg 11/07/20 09:00 11/08/20 08:55 Pantoprazole Sodium Iv 40 Mg Vial IV PUSH 40 mg QAM MINOO Administration Radiology Results: ITS Impressions Abdomen/Pelvis CT 11/07/20 07:31 IMP
--- NOTE | 2020-11-08 12:17 | WPDURCON ---
Assessment and Plan Assessment and plan (1) Renal mass: Code(s): N28.89 - Other specified disorders of kidney and ureter Status: Acute Assessment and Plan: He will need to establish care at [place] or [facility] as he is not insured at this time and could be managed there. No further evaluation or treatment needed at this time. Likely continued surveillance of the mass will be the recommendation. Urology Consult Note HPI Date Seen: 11/08/20 Requesting Physician: Sushil Khan MD Primary Care Provider: Samantha Gonzalez MD Consult Narrative Narrative: Baldomero Gallego is a 35 year old male who presented to the ER yesterday for acute onset of abdominal pain, nausea and vomiting following a course of binge drinking. He has a history of alcoholism and pancreatitis. He is currently here for treatment of his pain, DT's and evaluation of his abdominal pain by GI. We were consulted d/t a left 2.3cm renal mass representing a hypernephroma on CT abdomen/pelvis yesterday upon arrival at the ER. This was an incidental finding. HIs WBC is 5.9, Creatinine is 0.9 and UA is negative for suspicion of a UTI. He states he has known about this renal mass, as he used to live in [place], [place], and was initially diagnosed there. He had seen a Urologist while living there who was monitoring it with imaging. He has since moved here and wants to establish care with a Urologist for continued management of this mass. He denies abdominal pain, flank pain or any episodes of gross hematuria, stones or UTI's. Review of Systems Cardiovascular: Cardiovascular: Denies chest pain Respiratory: Respiratory: Reports no additional respiratory complaints Gastrointestinal: Gastrointestinal: Reports abdominal pain, Reports nausea and Reports vomiting Genitourinary: Genitourinary: Denies hematuria, Denies dysuria, Denies flank pain and Denies urinary frequency [facility] Past Medical History Medical History Alcohol abuse Gout HTN (hypertension) Pancreatitis Surgical History Surgical History No history of previous surgery Family History Family History Father Cancer Other Hypertension Social History Social History Social History: Smoking status: Never smoker Second hand tobacco smoke exposure: No Alcohol intake: current Drinks per week: 10 Substance use: never Substance use type: does not use Other substance usage details: 1 pint vodka/daily; 5 beers/week Last use: 11/06 Gender identity (if verbalized by the patient): Male Spiritual care concerns: No Agree to blood products: Yes Meds Home Medications and Allergies Home Medications Medication Instructions Recorded Confirmed Type allopurinol 100 mg tablet 100 mg PO BID #60 tablet 12/07/19 11/07/20 Rx amlodipine 5 mg tablet 5 mg PO DAILY #90 tablet 12/07/19 11/07/20 Rx metoprolol tartrate 50 mg tablet 50 mg PO BID #60 tablet 12/07/19 11/07/20 Rx dicyclomine 10 mg PO BID 5 Days #10 cap 08/11/20 11/07/20 Rx metoclopramide HCl [Reglan] 10 mg PO Q6H PRN #20 tablet 08/11/20 11/07/20 Rx simethicone 125 mg PO QID #20 cap 08/12/20 11/07/20 Rx Allergies Allergy/AdvReac Type Severity Reaction Status Date / Time codeine Allergy Mild Hives / Verified 11/07/20 11:46 Red Face morphine Allergy Mild Itching Verified 11/07/20 11:46 Vital Signs Vital Signs - 24 hr 11/07/20 14:10 11/07/20 20:52 11/07/20 21:14 Temperature 97.3 F L 97.9 F Pulse Rate 101 H 89 Respiratory Rate 13 16 Blood Pressure 176/92 H 178/92 H 168/92 H Pulse Oximetry 96 97 11/07/20 22:18 11/07/20 23:14 11/08/20 04:38 Temperature 97.8 F Pulse Rate 99 Respiratory Rate 16 Blood Pressure 169/87 H 166/97 H 166/90 H Pulse Oximetry 96
[2020-11-08 13:29] VITALS: BP 167/104; PULSE 98; RESP 18; TEMP 36.4; O2SAT 100
[2020-11-08] MEDS: hydrALAZINE HCL 20 MG/ML VIAL 10 MG IV PUSH (13:43)
--- NOTE | 2020-11-08 13:58 | PC.NURSE ---
On 11/08/20, the student, [Lamar Dillard ], provided care and completed [facility] documentation on this patient. I have reviewed the student's documentation and agree with the findings.
[2020-11-08 14:08] VITALS: BP 162/92; PULSE 87; RESP 18; TEMP 36; O2SAT 99
--- NOTE | 2020-11-08 14:32 | PM.IMPN ---
Progress Note: A&P Assessment and Plan (1) Gastric outlet obstruction: Code(s): K31.1 - Adult hypertrophic pyloric stenosis Status: Acute Assessment and Plan: 11/08/20 14:32 Baldomero Gallego is a 35 year old male with significant history of alcohol abuse and pancreatitis, patient states he drinks on and off however for last 2 weeks he has been extensively drinking and for last 2 days patient has developed abdominal pain nausea and vomiting, patient was not able to keep anything p.o. patient thought he may be having exacerbation of his pancreatitis however his symptoms were not improving he presented emergency department for further evaluation while in the emergency depart patient was having emesis and NG tube was placed 2 L of stomach content was evacuated, CT scan of abdomen did not show any acute pancreatitis nor there elevated lipase, there is no intestinal obstruction, while in the emergency depart patient did have a BM, most likely emesis secondary to alcohol abuse, and concerned that patient may have gastric outlet obstruction, patient is high risk of DT as he had previously, currently patient is on NG and NPO will place the patient on Ativan 1 mg IV every 4-6 hours as needed and 0.5 mg Dilaudid every 4 hours as needed for pain, patient will be seen by GI and further recommendation to follow. 11/08 today patient still c/o pain and still persisting, he removed the NG tube, but no nausea or vomiting, secondary to alcohol abuse, will try clear liquids if he can tolerate, will start on Librium to prevent DT, patient's CT scan of abdomen showed renal mass suspicious for renal cell carcinoma apparently patient is aware of the mass and was seen by urologist in [place], seen by urologist here recommending patient will need to be followed at tertiary care because he does not have any insurance. Today patient lipase are trending up will continue to monitor IV hydration and pain control, (2) Alcoholism: Code(s): F10.20 - Alcohol dependence, uncomplicated Status: Acute Assessment and Plan: Patient with history of alcohol abuse and DT will monitor with CIMT protocol currently patient is NPO will treat with a IV Ativan once able to take p.o. will start the patient on Librium and monitor (3) Gout: Code(s): M10.9 - Gout, unspecified Status: Acute Assessment and Plan: Will continue home regimen once able to take p.o. (4) HTN (hypertension): Code(s): I10 - Essential (primary) hypertension Status: Acute Assessment and Plan: Will resume patient's home medication once patient able to take p.o. meanwhile will monitor (5) Acute pancreatitis: Qualifiers: Acute pancreatitis complication: no infection or necrosis Pancreatitis type: unspecified pancreatitis type Qualified Code(s): K85.90 - Acute pancreatitis without necrosis or infection, unspecified Code(s): K85.90 - Acute pancreatitis without necrosis or infection, unspecified Status: Acute Assessment and Plan: Patient with history of pancreatitis secondary to alcohol abuse however CT scan of the abdomen is negative for any pancreatitis pathology nor there elevated lipase levels will continue to monitor. Subjective Date/time seen: 11/08/20 14:32 Baldomero Gallego is a 35 year old male with significant history of alcohol abuse and pancreatitis, patient states he drinks on and off however for last 2 weeks he has been extensively drinking and for last 2 days patient has developed abdominal pain nausea and vomiting, patient was not able to keep anything p.o. patient thought he may be having exacerbation of his pancreatitis however his symptoms were not improving he presented emergency department for further evaluation while in the emergency depart patient was having emesis and NG tube was placed 2 L of stomach content was evacuated, CT scan of abdomen did not show any acute pancreatitis nor there elevated lipase,
[2020-11-08 16:00] VITALS: BP 162/92
[2020-11-08] MEDS: chlordiazePOXIDE (*CRX) 25 MG CAPSULE 50 MG PO (17:43)
[2020-11-08 20:22] VITALS: BP 149/89; BP 149/98; PULSE 89; RESP 18; TEMP 36.4; O2SAT 99
[2020-11-09] VITALS (10 sets, daily range): BP systolic 144–152; BP diastolic 84–103; PULSE 86–91; RESP 18; TEMP 36.3–37.1; O2SAT 98–100
[2020-11-09] MEDS: chlordiazePOXIDE (*CRX) 25 MG CAPSULE 50 MG PO ×3 (00:04→12:18)
[2020-11-09] MEDS: HYDROmorphone HCL INJ (*CRX) 1 MG/ML SYR 0.5 MG IV PUSH ×4 (03:30→21:49)
[2020-11-09] MEDS: SODIUM CHLORIDE 0.9% IV 1,000 ML 125 ML IV CONT ×3 (04:55→21:48)
[2020-11-09 06:06] LABS: Hematocrit 39.8 % (42.0-52.0); Immature Platelet Fraction Pct 9.6 % (0.9-11.2); Mean Corpuscular HGB Conc 32.7 g/dl (32-36); Mean Corpuscular Hemoglobin 28.8 pg (26-34); Mean Corpuscular Volume 88.2 fl (80-100); Mean Platelet Volume 10.6 fl (7.4-10.4); Platelet Count Result 66 k/mm3 (150-375); Red Blood Count 4.51 M/mm3 (4.6-6.20); Red Cell Distribution Width 13.1 % (11.5-14.5); White Blood Count 4.2 K/mm3 (4.5-10.0)
[2020-11-09 06:57] LABS: Alanine Aminotransferase 181 U/L (4-50); Albumin Level 3.7 g/dL (3.5-5.1); Alkaline Phosphatase 51 U/L (38-126); Anion Gap 6 mmol/L (8-16); Aspartate Amino Transferase 194 U/L (17-59); Bilirubin,Total 1.4 mg/dL (0.2-1.3); Blood Urea Nitrogen 13 mg/dL (9-20); Calcium 8.6 mg/dL (8.4-10.2); Carbon Dioxide 28 mmol/L (22-30); Chloride 100 mmol/L (98-107); Estimated CRCL calculation 122 ml/min; Estimated Glomerular Filt Rate > 60; Glucose 93 mg/dL (75-110); Lipase 343 U/L (23-300); Sodium 134 mmol/L (137-145)
--- NOTE | 2020-11-09 08:19 | WPDGIPROGNO ---
Progress Note: A&P Assessment and Plan (1) Alcoholic hepatitis: Code(s): K70.10 - Alcoholic hepatitis without ascites Status: Acute Assessment and Plan: Patient with alcoholic hepatitis. Elevated LFTs on the basis of heavy alcohol use. Alcohol abstinence strongly encourage. will advance diet. Increase activity and hopefully discharge if stable. (2) Nausea and vomiting in adult: Code(s): R11.2 - Nausea with vomiting, unspecified Status: Acute Assessment and Plan: Nausea vomiting now resolved. Appear to be related to alcohol intoxication. Pancreatitis was considered with modestly elevated lipase. A CT scan reveals no changes of pancreatitis lipase now normalizing doubt that he had underlying pancreatitis. (3) Renal mass: Code(s): N28.89 - Other specified disorders of kidney and ureter Status: Acute Assessment and Plan: Renal mass consistent with renal cell carcinoma evident on CT scan. Urology follow-up advised. I understand the of seeing the patient now period (4) Alcoholism: Code(s): F10.20 - Alcohol dependence, uncomplicated Status: Acute Assessment and Plan: Patient with heavy regular alcohol use. Need to watch for signs of withdrawal. Alcohol abstinence strongly encourage. Subjective Date/time seen: 11/09/20 08:19 Patient denies any additional nausea or vomiting. Complains of rather vague abdominal pain. Starting to get hungry. Review of Systems Review of Systems: All systems reviewed & are unremarkable except as noted in HPI and below Exam Narrative: Exam Narrative: Physical exam reveals patient to be alert and oriented. He is anicteric. Lungs are clear. Heart without murmur. Abdomen bowel sounds are present soft nontender with no organomegaly. Objective Data Vital Signs Vital Signs: Vital Signs - 24 hr 11/08/20 13:29 11/08/20 14:08 11/08/20 16:00 Temperature 97.5 F L 96.8 F L Pulse Rate 98 87 Respiratory Rate 18 18 Blood Pressure 167/104 H 162/92 H 162/92 H Pulse Oximetry 100 99 11/08/20 20:22 11/09/20 00:06 11/09/20 03:33 Temperature 97.5 F L Pulse Rate 89 Respiratory Rate 18 Blood Pressure 149/89 H 151/84 H 152/95 H Pulse Oximetry 99 11/09/20 04:54 Temperature 97.6 F Pulse Rate 86 Respiratory Rate 18 Blood Pressure 144/90 H Pulse Oximetry 98 Intake/Output Intake/Output: Intake & Output 11/06/20 11/07/20 11/08/20 11/09/20 23:59 23:59 23:59 23:59 Intake Total 1000 3220 1100 Output Total 2600 1300 Balance -1600 1920 1100 Meds/Results Medications: Active Medications Generic Name Dose Route Start Last Admin Trade Name Freq PRN Reason Stop Dose Admin Chlordiazepoxide HCl 50 mg 11/08/20 18:00 11/09/20 05:00 Chlordiazepoxide (*Crx) 25 Mg Capsule PO 11/09/20 17:00 50 mg Q6HR MINOO Administration Chlordiazepoxide HCl 25 mg 11/09/20 18:00 Chlordiazepoxide (*Crx) 25 Mg Capsule PO 11/11/20 17:00 Q6HR MINOO Hydralazine HCl 10 mg 11/07/20 20:55 11/08/20 13:43 Hydralazine Hcl 20 Mg/Ml Vial IV PUSH 10 mg Q4H PRN Administration Blood Pressure - High Hydromorphone HCl 0.5 mg 11/07/20 09:27 11/09/20 03:30 Hydromorphone Hcl Inj (*Crx) 1 Mg/Ml Syr IV PUSH 0.5 mg Q4H PRN Administration Pain Rated 7-10 Sodium Chloride 1,000 mls @ 125 mls/hr 11/07/20 07:45 11/09/20 04:55 Normal Saline Iv IV CONT 125 mls/hr .Q8H MINOO Administration Lorazepam 1 mg 11/07/20 09:26 11/07/20 09:41 Lorazepam Inj (*Crx) 2 Mg/Ml Vial IV PUSH 1 mg Q4H PRN Administration Anxiety Ondansetron HCl 4 mg 11/07/20 07:42 11/07/20 20:50 Ondansetron Inj 4 Mg/2 Ml Vial IV PUSH 4 mg Q4H PRN Administration Nausea Pantoprazole Sodium 40 mg 11/07/20 09:00 11/08/20 08:55 Pantoprazole Sodium Iv 40 Mg Vial IV PUSH 40 mg QAM MINOO Administration Radiology Results: ITS Impressions Abdomen/Pelvis CT 11/07/20 07:31 IM
[2020-11-09] MEDS: PANTOPRAZOLE SODIUM IV 40 MG VIAL IV PUSH (09:08)
[2020-11-09] MEDS: POTASSIUM CHLORIDE 20 MEQ TABLET 40 MEQ PO (09:09)
--- NOTE | 2020-11-09 09:58 | PM.IMPN ---
Progress Note: A&P Assessment and Plan (1) Gastric outlet obstruction: Code(s): K31.1 - Adult hypertrophic pyloric stenosis Status: Acute Assessment and Plan: 11/09/20 09:58 Baldomero Gallego is a 35 year old male with significant history of alcohol abuse and pancreatitis, patient states he drinks on and off however for last 2 weeks he has been extensively drinking and for last 2 days patient has developed abdominal pain nausea and vomiting, patient was not able to keep anything p.o. patient thought he may be having exacerbation of his pancreatitis however his symptoms were not improving he presented emergency department for further evaluation while in the emergency depart patient was having emesis and NG tube was placed 2 L of stomach content was evacuated, CT scan of abdomen did not show any acute pancreatitis nor there elevated lipase, there is no intestinal obstruction, while in the emergency depart patient did have a BM, most likely emesis secondary to alcohol abuse, and concerned that patient may have gastric outlet obstruction, patient is high risk of DT as he had previously, currently patient is on NG and NPO will place the patient on Ativan 1 mg IV every 4-6 hours as needed and 0.5 mg Dilaudid every 4 hours as needed for pain, patient will be seen by GI and further recommendation to follow. 11/08 today patient still c/o pain and still persisting, he removed the NG tube, but no nausea or vomiting, secondary to alcohol abuse, will try clear liquids if he can tolerate, will start on Librium to prevent DT, patient's CT scan of abdomen showed renal mass suspicious for renal cell carcinoma apparently patient is aware of the mass and was seen by urologist in [place], seen by urologist here recommending patient will need to be followed at tertiary care because he does not have any insurance. Today patient lipase are trending up will continue to monitor IV hydration and pain control. 11/09 on 11/08 started the patient on clear liquid which is able to tolerate denies any nausea or vomiting, lipase levels trending down seen by GI does not suspect pancreatitis rather secondary to alcohol abuse, yesterday also started the patient Librium 50 mg every 6 hours, remains clinically stable, will advance diet to full liquid, will continue to monitor and taper barium is symptoms improve, patient will benefit from PT OT, patient will benefit abstain from alcohol and rehab (2) Alcoholism: Code(s): F10.20 - Alcohol dependence, uncomplicated Status: Acute Assessment and Plan: Patient with history of alcohol abuse and DT will monitor with CIKS protocol currently patient is NPO will treat with a IV Ativan once able to take p.o. will start the patient on Librium and monitor (3) Gout: Code(s): M10.9 - Gout, unspecified Status: Acute Assessment and Plan: Will continue home regimen once able to take p.o. (4) HTN (hypertension): Code(s): I10 - Essential (primary) hypertension Status: Acute Assessment and Plan: Will resume patient's home medication once patient able to take p.o. meanwhile will monitor (5) Acute pancreatitis: Qualifiers: Acute pancreatitis complication: no infection or necrosis Pancreatitis type: unspecified pancreatitis type Qualified Code(s): K85.90 - Acute pancreatitis without necrosis or infection, unspecified Code(s): K85.90 - Acute pancreatitis without necrosis or infection, unspecified Status: Acute Assessment and Plan: Patient with history of pancreatitis secondary to alcohol abuse however CT scan of the abdomen is negative for any pancreatitis pathology nor there elevated lipase levels will continue to monitor. Subjective Date/time seen: 11/09/20 09:58 Baldomero Noblejorgechase is a 35 year old male with significant history of alcohol abuse and pancreatitis, patient states he drinks on and off however for last 2 weeks he has been extensively drinking an
[2020-11-09] MEDS: hydrALAZINE HCL 20 MG/ML VIAL 10 MG IV PUSH ×2 (17:15→21:49)
[2020-11-09] MEDS: chlordiazePOXIDE (*CRX) 25 MG CAPSULE PO (17:15)
[2020-11-10] MEDS: chlordiazePOXIDE (*CRX) 25 MG CAPSULE PO ×4 (00:38→17:48)
[2020-11-10] MEDS: HYDROmorphone HCL INJ (*CRX) 1 MG/ML SYR 0.5 MG IV PUSH ×2 (02:12→12:31)
[2020-11-10 04:38] VITALS: BP 158/94; PULSE 88; RESP 17; TEMP 36.6; O2SAT 100
[2020-11-10 04:51] VITALS: PULSE 88
[2020-11-10 06:01] LABS: Hematocrit 43.2 % (42.0-52.0); Hemoglobin 14.5 g/dL (14.0-18.0); Immature Platelet Fraction Pct 9.2 % (0.9-11.2); Mean Corpuscular HGB Conc 33.6 g/dl (32-36); Mean Corpuscular Hemoglobin 29.1 pg (26-34); Mean Corpuscular Volume 86.7 fl (80-100); Mean Platelet Volume 10.9 fl (7.4-10.4); Platelet Count Result 74 k/mm3 (150-375); Red Blood Count 4.98 M/mm3 (4.6-6.20); Red Cell Distribution Width 12.8 % (11.5-14.5); White Blood Count 4.1 K/mm3 (4.5-10.0)
[2020-11-10 06:11] LABS: Alanine Aminotransferase 181 U/L (4-50); Albumin Level 3.9 g/dL (3.5-5.1); Alkaline Phosphatase 56 U/L (38-126); Anion Gap 9 mmol/L (8-16); Aspartate Amino Transferase 168 U/L (17-59); Bilirubin,Total 0.9 mg/dL (0.2-1.3); Blood Urea Nitrogen 9 mg/dL (9-20); Calcium 9.2 mg/dL (8.4-10.2); Carbon Dioxide 25 mmol/L (22-30); Chloride 103 mmol/L (98-107); Estimated CRCL calculation 138 ml/min; Estimated Glomerular Filt Rate > 60; Glucose 124 mg/dL (75-110); Lipase 94 U/L (23-300); Magnesium 1.9 mg/dL (1.6-2.3); Sodium 137 mmol/L (137-145)
[2020-11-10] MEDS: POTASSIUM CHLORIDE 20 MEQ TABLET 40 MEQ PO (10:02)
[2020-11-10] MEDS: PANTOPRAZOLE SODIUM IV 40 MG VIAL IV PUSH (10:02)
--- NOTE | 2020-11-10 11:34 | WPDGIPROGNO ---
Progress Note: A&P Assessment and Plan (1) Alcoholic hepatitis: Code(s): K70.10 - Alcoholic hepatitis without ascites Status: Acute Assessment and Plan: Serum transaminases remain elevated most consistent with alcoholic hepatitis. Suggest alcohol avoidance long-term. Follow-up LFTs after discharge are encourage. Advance diet as tolerated this time. (2) Renal mass: Code(s): N28.89 - Other specified disorders of kidney and ureter Status: Acute Assessment and Plan: Renal mass will need follow-up by urology service. CT is suspicious for carcinoma. (3) Alcohol abuse: Code(s): F10.10 - Alcohol abuse, uncomplicated Status: Acute Assessment and Plan: Patient has had recurrent problems related to alcohol abuse. I have encouraged the patient to add completely abstain from alcohol going forward. (4) Nausea and vomiting in adult: Code(s): R11.2 - Nausea with vomiting, unspecified Status: Acute Assessment and Plan: Nausea vomiting appear resolved. Likely related to alcohol toxicity and alcoholic hepatitis. No evidence for gastric outlet obstruction. Should he continue to vomit upper GI series and/or EGD could be performed later. Subjective Date/time seen: 11/10/20 11:34 Patient alert and peers comfortable this morning. Reports he had some nausea and a small amount of emesis yesterday on starting regular diet. Currently denies abdominal pain but appreciates the pain medications. Noted to be passing bowel movements without difficulty. Review of Systems Review of Systems: All systems reviewed & are unremarkable except as noted in HPI and below Exam Narrative: Exam Narrative: Physical exam patient is alert. Vital signs stable. He is anicteric. Lungs are clear. Heart without murmur. Abdomen bowel sounds present soft nontender no succession splash. No distention. No masses evident. No localized tenderness. Objective Data Vital Signs Vital Signs: Vital Signs - 24 hr 11/09/20 13:00 11/09/20 14:16 11/09/20 17:00 Temperature 98.7 F Pulse Rate 91 Pulse Rate [Radial Palpation] Respiratory Rate 18 Blood Pressure 144/90 H 146/103 H 146/103 H Pulse Oximetry 100 11/09/20 17:09 11/09/20 20:44 11/09/20 21:00 Temperature 97.4 F L Pulse Rate 88 Pulse Rate [Radial Palpation] 88 Respiratory Rate 18 Blood Pressure 147/99 H 145/95 H Pulse Oximetry 100 11/10/20 04:38 11/10/20 04:51 Temperature 98 F Pulse Rate 88 Pulse Rate [Radial Palpation] 88 Respiratory Rate 17 Blood Pressure 158/94 H Pulse Oximetry 100 Intake/Output Intake/Output: Intake & Output 11/07/20 11/08/20 11/09/20 11/10/20 23:59 23:59 23:59 23:59 Intake Total 1000 3220 3580 590 Output Total 2600 1300 1000 Balance -1600 1920 3580 -410 Meds/Results Medications: Active Medications Generic Name Dose Route Start Last Admin Trade Name Freq PRN Reason Stop Dose Admin Chlordiazepoxide HCl 25 mg 11/09/20 18:00 11/10/20 06:38 Chlordiazepoxide (*Crx) 25 Mg Capsule PO 11/11/20 17:00 25 mg Q6HR MINOO Administration Hydralazine HCl 10 mg 11/07/20 20:55 11/09/20 21:49 Hydralazine Hcl 20 Mg/Ml Vial IV PUSH 10 mg Q4H PRN Administration Blood Pressure - High Hydromorphone HCl 0.5 mg 11/07/20 09:27 11/10/20 02:12 Hydromorphone Hcl Inj (*Crx) 1 Mg/Ml Syr IV PUSH 0.5 mg Q4H PRN Administration Pain Rated 7-10 Sodium Chloride 1,000 mls @ 125 mls/hr 11/07/20 07:45 11/09/20 21:48 Normal Saline Iv IV CONT 125 mls/hr .Q8H MINOO Administration Lorazepam 1 mg 11/07/20 09:26 11/07/20 09:41 Lorazepam Inj (*Crx) 2 Mg/Ml Vial IV PUSH 1 mg Q4H PRN Administration Anxiety Ondansetron HCl 4 mg 11/07/20 07:42 11/07/20 20:50 Ondansetron Inj 4 Mg/2 Ml Vial IV PUSH 4 mg Q4H PRN Administration Nausea Pantoprazole Sodium 40 mg 11/07/20 09:00 11/10/20 10:02 Pantoprazole So
[2020-11-10 14:00] VITALS: BP 160/99; PULSE 99; RESP 16; TEMP 36.1; O2SAT 100
--- NOTE | 2020-11-10 14:13 | PM.IMPN ---
Progress Note: A&P Assessment and Plan (1) Gastric outlet obstruction: Code(s): K31.1 - Adult hypertrophic pyloric stenosis Status: Acute Assessment and Plan: 11/10/20 14:13 Baldomero Gallego is a 35 year old male with significant history of alcohol abuse and pancreatitis, patient states he drinks on and off however for last 2 weeks he has been extensively drinking and for last 2 days patient has developed abdominal pain nausea and vomiting, patient was not able to keep anything p.o. patient thought he may be having exacerbation of his pancreatitis however his symptoms were not improving he presented emergency department for further evaluation while in the emergency depart patient was having emesis and NG tube was placed 2 L of stomach content was evacuated, CT scan of abdomen did not show any acute pancreatitis nor there elevated lipase, there is no intestinal obstruction, while in the emergency depart patient did have a BM, most likely emesis secondary to alcohol abuse, and concerned that patient may have gastric outlet obstruction, patient is high risk of DT as he had previously, currently patient is on NG and NPO will place the patient on Ativan 1 mg IV every 4-6 hours as needed and 0.5 mg Dilaudid every 4 hours as needed for pain, patient will be seen by GI and further recommendation to follow. 11/08 today patient still c/o pain and still persisting, he removed the NG tube, but no nausea or vomiting, secondary to alcohol abuse, will try clear liquids if he can tolerate, will start on Librium to prevent DT, patient's CT scan of abdomen showed renal mass suspicious for renal cell carcinoma apparently patient is aware of the mass and was seen by urologist in [place], seen by urologist here recommending patient will need to be followed at tertiary care because he does not have any insurance. Today patient lipase are trending up will continue to monitor IV hydration and pain control. 11/09 on 11/08 started the patient on clear liquid which is able to tolerate denies any nausea or vomiting, lipase levels trending down seen by GI does not suspect pancreatitis rather secondary to alcohol abuse, yesterday also started the patient Librium 50 mg every 6 hours, remains clinically stable, will advance diet to full liquid, will continue to monitor and taper barium is symptoms improve, patient will benefit from PT OT, patient will benefit abstain from alcohol and rehab 11/10 today patient still complains of abdominal pain feels nauseated is still is on for clear liquid and complains of abdominal pain with eating, patient seen by GI does not suspect gastric outlet obstruction syndrome however if the symptoms do persist patient may need further evaluation with a EGD, patient remains clinically stable he does not show any sinus symptoms DT he is on Librium currently 25 mg every 6 hours will continue to monitor and further recommendation to follow, will have a PT OT evaluate the patient (2) Alcoholism: Code(s): F10.20 - Alcohol dependence, uncomplicated Status: Acute Assessment and Plan: Patient with history of alcohol abuse and DT will monitor with CIWA protocol currently patient is NPO will treat with a IV Ativan once able to take p.o. will start the patient on Librium and monitor (3) Gout: Code(s): M10.9 - Gout, unspecified Status: Acute Assessment and Plan: Will continue home regimen once able to take p.o. (4) HTN (hypertension): Code(s): I10 - Essential (primary) hypertension Status: Acute Assessment and Plan: Will resume patient's home medication once patient able to take p.o. meanwhile will monitor (5) Acute pancreatitis: Qualifiers: Acute pancreatitis complication: no infection or necrosis Pancreatitis type: unspecified pancreatitis type Qualified Code(s): K85.90 - Acute pancreatitis without necrosis or infection, unspecified Code(s): K85.90 - Acute pancreatitis withou
[2020-11-10] MEDS: HYDROcodone/acetaminophen (*CRX) 5-325 MG TABLET 1 TAB PO ×2 (16:47→22:03)
[2020-11-10] MEDS: SODIUM CHLORIDE 0.9% IV 1,000 ML 125 ML IV CONT (16:50)
[2020-11-10 20:16] VITALS: BP 129/66; PULSE 81; RESP 16; TEMP 36.3; O2SAT 99
[2020-11-11] MEDS: chlordiazePOXIDE (*CRX) 25 MG CAPSULE PO ×3 (00:14→11:31)
[2020-11-11] MEDS: SODIUM CHLORIDE 0.9% IV 1,000 ML 125 ML IV CONT ×3 (00:58→19:10)
[2020-11-11 05:55] VITALS: BP 132/68; PULSE 70; RESP 14; TEMP 36.8; O2SAT 100
[2020-11-11 08:45] LABS: Hemoglobin 13.9 g/dL (14.0-18.0); Immature Platelet Fraction Pct 11.9 % (0.9-11.2); Mean Corpuscular HGB Conc 34.8 g/dl (32-36); Mean Corpuscular Hemoglobin 29.1 pg (26-34); Mean Corpuscular Volume 83.7 fl (80-100); Mean Platelet Volume 10.6 fl (7.4-10.4); Platelet Count Result 79 k/mm3 (150-375); Red Blood Count 4.78 M/mm3 (4.6-6.20); Red Cell Distribution Width 12.6 % (11.5-14.5); White Blood Count 4.4 K/mm3 (4.5-10.0)
[2020-11-11] MEDS: PANTOPRAZOLE SODIUM IV 40 MG VIAL IV PUSH (09:17)
[2020-11-11] MEDS: HYDROcodone/acetaminophen (*CRX) 5-325 MG TABLET 1 TAB PO ×2 (09:24→22:58)
[2020-11-11 09:25] VITALS: PULSE 70; RESP 14; O2SAT 100
--- NOTE | 2020-11-11 10:55 | WPDGIPROGNO ---
Progress Note: A&P Assessment and Plan (1) Nausea and vomiting in adult: Code(s): R11.2 - Nausea with vomiting, unspecified Status: Acute Assessment and Plan: Nausea vomiting appear resolved. Plan to advance to a regular diet. If vomiting recurs in follow-up EGD would be advised. Hopefully if diet tolerated be discharged (2) Alcoholic hepatitis: Code(s): K70.10 - Alcoholic hepatitis without ascites Status: Acute Assessment and Plan: elevated serum transaminases most consistent with alcoholic hepatitis. Strict alcohol avoidance encourage. Discussed with patient today follow-up LFTs after discharge advised. (3) Renal mass: Code(s): N28.89 - Other specified disorders of kidney and ureter Status: Acute Assessment and Plan: Renal mass suspicious for cancer on CT scan. Urology follow-up advised period is possible this may contribute to some of his pain and nausea. This will evaluation soon. Anticipate this will be done as an outpatient. (4) Alcoholism: Code(s): F10.20 - Alcohol dependence, uncomplicated Status: Acute Assessment and Plan: Strict alcohol avoidance discussed with patient today. Reinforced own port and this is. She chief of Subjective Date/time seen: 11/11/20 10:55 Patient appears much more comfortable today. No additional vomiting. He has remain on liquid diet however. Review of Systems Review of Systems: All systems reviewed & are unremarkable except as noted in HPI and below Exam Narrative: Exam Narrative: physical exam reveals patient to be alert. Lungs are clear. Heart without murmur. Abdomen bowel sounds present soft nontender but he reports discomfort in left upper abdomen. Objective Data Vital Signs Vital Signs: Vital Signs - 24 hr 11/10/20 14:00 11/10/20 20:16 11/11/20 05:55 Temperature 97.0 F L 97.4 F L 98.2 F Pulse Rate 99 81 70 Respiratory Rate 16 16 14 Blood Pressure 160/99 H 129/66 132/68 Pulse Oximetry 100 99 100 11/11/20 09:25 Temperature Pulse Rate 70 Respiratory Rate 14 Blood Pressure Pulse Oximetry 100 Intake/Output Intake/Output: Intake & Output 11/08/20 11/09/20 11/10/20 11/11/20 23:59 23:59 23:59 23:59 Intake Total 3220 3580 2070 2800 Output Total 1300 1000 1200 Balance 1920 3580 1070 1600 Meds/Results Medications: Active Medications Generic Name Dose Route Start Last Admin Trade Name Freq PRN Reason Stop Dose Admin Hydrocodone Bitart/Acetaminophen 1 tab 11/10/20 13:05 11/11/20 09:24 Hydrocodone/Acetaminophen (*Crx) 5-325 Mg Tablet PO 1 tab Q4H PRN Administration Pain Rated 4-6 Chlordiazepoxide HCl 25 mg 11/09/20 18:00 11/11/20 06:17 Chlordiazepoxide (*Crx) 25 Mg Capsule PO 11/11/20 17:00 25 mg Q6HR MINOO Administration Hydralazine HCl 10 mg 11/07/20 20:55 11/09/20 21:49 Hydralazine Hcl 20 Mg/Ml Vial IV PUSH 10 mg Q4H PRN Administration Blood Pressure - High Sodium Chloride 1,000 mls @ 125 mls/hr 11/07/20 07:45 11/11/20 10:31 Normal Saline Iv IV CONT 125 mls/hr .Q8H MINOO Administration Lorazepam 1 mg 11/07/20 09:26 11/07/20 09:41 Lorazepam Inj (*Crx) 2 Mg/Ml Vial IV PUSH 1 mg Q4H PRN Administration Anxiety Ondansetron HCl 4 mg 11/07/20 07:42 11/07/20 20:50 Ondansetron Inj 4 Mg/2 Ml Vial IV PUSH 4 mg Q4H PRN Administration Nausea Pantoprazole Sodium 40 mg 11/07/20 09:00 11/11/20 09:17 Pantoprazole Sodium Iv 40 Mg Vial IV PUSH 40 mg QAM MINOO Administration Radiology Results: ITS Impressions Abdomen/Pelvis CT 11/07/20 07:31 IMPRESSION: 2.4 cm probable left hypernephroma Very small sliding hiatal hernia Diffuse hepatic steatosis Abdomen X-Ray 11/07/20 16:06 IMPRESSION: 1: NG tube tip in the stomach. Labs Labs: Laboratory Results - last 24 hr 11/11/20 08:32 WBC 4.4 L RBC 4.78 Hgb 13.9 L Hct 40.0
[2020-11-11] MEDS: ONDANSETRON INJ 4 MG/2 ML VIAL IV PUSH (12:58)
[2020-11-11 13:00] VITALS: BP 164/110; PULSE 89; RESP 25; TEMP 36.4; O2SAT 100
--- NOTE | 2020-11-11 13:33 | PM.IMPN ---
Progress Note: A&P Assessment and Plan (1) Gastric outlet obstruction: Code(s): K31.1 - Adult hypertrophic pyloric stenosis Status: Acute Assessment and Plan: 11/11/20 13:33 Baldomero Gallego is a 35 year old male with significant history of alcohol abuse and pancreatitis, patient states he drinks on and off however for last 2 weeks he has been extensively drinking and for last 2 days patient has developed abdominal pain nausea and vomiting, patient was not able to keep anything p.o. patient thought he may be having exacerbation of his pancreatitis however his symptoms were not improving he presented emergency department for further evaluation while in the emergency depart patient was having emesis and NG tube was placed 2 L of stomach content was evacuated, CT scan of abdomen did not show any acute pancreatitis nor there elevated lipase, there is no intestinal obstruction, while in the emergency depart patient did have a BM, most likely emesis secondary to alcohol abuse, and concerned that patient may have gastric outlet obstruction, patient is high risk of DT as he had previously, currently patient is on NG and NPO will place the patient on Ativan 1 mg IV every 4-6 hours as needed and 0.5 mg Dilaudid every 4 hours as needed for pain, patient will be seen by GI and further recommendation to follow. 11/08 today patient still c/o pain and still persisting, he removed the NG tube, but no nausea or vomiting, secondary to alcohol abuse, will try clear liquids if he can tolerate, will start on Librium to prevent DT, patient's CT scan of abdomen showed renal mass suspicious for renal cell carcinoma apparently patient is aware of the mass and was seen by urologist in [place], seen by urologist here recommending patient will need to be followed at tertiary care because he does not have any insurance. Today patient lipase are trending up will continue to monitor IV hydration and pain control. 11/09 on 11/08 started the patient on clear liquid which is able to tolerate denies any nausea or vomiting, lipase levels trending down seen by GI does not suspect pancreatitis rather secondary to alcohol abuse, yesterday also started the patient Librium 50 mg every 6 hours, remains clinically stable, will advance diet to full liquid, will continue to monitor and taper barium is symptoms improve, patient will benefit from PT OT, patient will benefit abstain from alcohol and rehab 11/10 today patient still complains of abdominal pain feels nauseated is still is on for clear liquid and complains of abdominal pain with eating, patient seen by GI does not suspect gastric outlet obstruction syndrome however if the symptoms do persist patient may need further evaluation with a EGD, patient remains clinically stable he does not show any sign or symptoms DT he is on Librium currently 25 mg every 6 hours will continue to monitor and further recommendation to follow, will have a PT OT evaluate the patient. 11/11 patient with history of alcohol abuse, acute pancreatitis, patient's symptoms are improving somewhat and was able to tolerate clear liquid plan was to discharge the patient on regular diet if tolerated can be discharged home however patient had a regular diet and had an episode of vomiting, will give the patient Zofran, will continue clear liquids as tolerated, GI recommending if patient cannot tolerate regular diet he will need EGD to further evaluate which can happen on Friday meanwhile will continue to monitor, patient remains clinically stable he does not show any sign or symptoms of DT he is on Librium currently 25 mg every 6 hours will continue to monitor and further recommendation to follow, will have a PT OT evaluate the patient. (2) Alcoholism: Code(s): F10.20 - Alcohol dependence, uncomplicated Status: Acute Assessment and Plan: Patient with history of alcohol abuse and DT will monitor with CIWA protocol currently patient is NPO will treat wit
[2020-11-11 15:13] VITALS: BP 159/103; PULSE 82
[2020-11-11] MEDS: hydrALAZINE HCL 20 MG/ML VIAL 10 MG IV PUSH (15:18)
[2020-11-11 15:27] LABS: Alanine Aminotransferase 189 U/L (4-50); Albumin Level 3.8 g/dL (3.5-5.1); Alkaline Phosphatase 47 U/L (38-126); Anion Gap 6 mmol/L (8-16); Aspartate Amino Transferase 160 U/L (17-59); Bilirubin,Total 0.6 mg/dL (0.2-1.3); Blood Urea Nitrogen 8 mg/dL (9-20); Calcium 8.9 mg/dL (8.4-10.2); Carbon Dioxide 23 mmol/L (22-30); Chloride 109 mmol/L (98-107); Estimated CRCL calculation 122 ml/min; Estimated Glomerular Filt Rate > 60; Glucose 102 mg/dL (75-110); Lipase 69 U/L (23-300); Magnesium 1.6 mg/dL (1.6-2.3); Potassium 4.5 mmol/L (3.4-5.0); Sodium 138 mmol/L (137-145)
[2020-11-11 16:32] VITALS: BP 146/92
[2020-11-11 20:29] VITALS: BP 150/82; PULSE 97; RESP 14; TEMP 36.5; O2SAT 100
[2020-11-12] MEDS: SODIUM CHLORIDE 0.9% IV 1,000 ML 125 ML IV CONT ×3 (02:53→19:23)
[2020-11-12 05:40] VITALS: BP 146/85; PULSE 76; RESP 14; TEMP 36.8; O2SAT 100
[2020-11-12 06:52] LABS: Hematocrit 40.2 % (42.0-52.0); Hemoglobin 13.4 g/dL (14.0-18.0); Immature Platelet Fraction Pct 6.6 % (0.9-11.2); Mean Corpuscular HGB Conc 33.3 g/dl (32-36); Mean Corpuscular Hemoglobin 28.8 pg (26-34); Mean Corpuscular Volume 86.3 fl (80-100); Mean Platelet Volume 10.6 fl (7.4-10.4); Platelet Count Result 134 k/mm3 (150-375); Red Blood Count 4.66 M/mm3 (4.6-6.20); White Blood Count 5.9 K/mm3 (4.5-10.0)
[2020-11-12 07:08] LABS: Alanine Aminotransferase 171 U/L (4-50); Albumin Level 3.5 g/dL (3.5-5.1); Alkaline Phosphatase 47 U/L (38-126); Anion Gap 6 mmol/L (8-16); Aspartate Amino Transferase 109 U/L (17-59); Bilirubin,Total 0.7 mg/dL (0.2-1.3); Blood Urea Nitrogen 5 mg/dL (9-20); Calcium 8.7 mg/dL (8.4-10.2); Carbon Dioxide 24 mmol/L (22-30); Chloride 108 mmol/L (98-107); Estimated CRCL calculation 138 ml/min; Estimated Glomerular Filt Rate > 60; Glucose 106 mg/dL (75-110); Lipase 42 U/L (23-300); Magnesium 1.6 mg/dL (1.6-2.3); Potassium 3.6 mmol/L (3.4-5.0); Sodium 138 mmol/L (137-145)
[2020-11-12 08:00] VITALS: PULSE 76; RESP 14; O2SAT 100
[2020-11-12] MEDS: PANTOPRAZOLE SODIUM IV 40 MG VIAL IV PUSH (08:42)
[2020-11-12] MEDS: HYDROcodone/acetaminophen (*CRX) 5-325 MG TABLET 1 TAB PO ×3 (08:47→20:50)
--- NOTE | 2020-11-12 09:30 | WPDGIPROGNO ---
Progress Note: A&P Assessment and Plan (1) Alcoholic hepatitis: Code(s): K70.10 - Alcoholic hepatitis without ascites Status: Acute Assessment and Plan: Elevated transaminases secondary to alcoholic hepatitis. Patient should continue to avoid alcohol follow-up LFTs after discharge. (2) Nausea and vomiting in adult: Code(s): R11.2 - Nausea with vomiting, unspecified Status: Acute Assessment and Plan: Patient continues to complain of vomiting after eating solid food. Plan to proceed with EGD in the morning to exclude obstruction. (3) Alcohol abuse: Code(s): F10.10 - Alcohol abuse, uncomplicated Status: Acute Assessment and Plan: Strict alcohol avoidance advised. Subjective Date/time seen: 11/12/20 09:30 Patient continues to complain of vomiting. States he had vomiting yesterday after eating solid foods. Exam Narrative: Exam Narrative: On physical exam patient alert appears comfortable. He is anicteric. Lungs are clear. Heart without murmur. Abdomen bowel sounds present soft no localized tenderness. Objective Data Vital Signs Vital Signs: Vital Signs - 24 hr 11/11/20 13:00 11/11/20 15:13 11/11/20 16:32 Temperature 97.6 F Pulse Rate 89 82 Respiratory Rate 25 H Blood Pressure 164/110 H 159/103 H 146/92 H Pulse Oximetry 100 11/11/20 20:29 11/12/20 05:40 Temperature 97.7 F 98.3 F Pulse Rate 97 76 Respiratory Rate 14 14 Blood Pressure 150/82 H 146/85 H Pulse Oximetry 100 100 Intake/Output Intake/Output: Intake & Output 11/09/20 11/10/20 11/11/20 11/12/20 23:59 23:59 23:59 23:59 Intake Total 3580 2070 4100 1920 Output Total 1000 2000 2400 Balance 3580 1070 2100 -480 Meds/Results Medications: Active Medications Generic Name Dose Route Start Last Admin Trade Name Freq PRN Reason Stop Dose Admin Hydrocodone Bitart/Acetaminophen 1 tab 11/10/20 13:05 11/12/20 08:47 Hydrocodone/Acetaminophen (*Crx) 5-325 Mg Tablet PO 1 tab Q4H PRN Administration Pain Rated 4-6 Chlordiazepoxide HCl 25 mg 11/12/20 00:00 Chlordiazepoxide (*Crx) 25 Mg Capsule PO 11/14/20 16:00 Q8H PRN Anxiety Hydralazine HCl 10 mg 11/07/20 20:55 11/11/20 15:18 Hydralazine Hcl 20 Mg/Ml Vial IV PUSH 10 mg Q4H PRN Administration Blood Pressure - High Sodium Chloride 1,000 mls @ 125 mls/hr 11/07/20 07:45 11/12/20 02:53 Normal Saline Iv IV CONT 125 mls/hr .Q8H MINOO Administration Lorazepam 1 mg 11/07/20 09:26 11/07/20 09:41 Lorazepam Inj (*Crx) 2 Mg/Ml Vial IV PUSH 1 mg Q4H PRN Administration Anxiety Ondansetron HCl 4 mg 11/07/20 07:42 11/11/20 12:58 Ondansetron Inj 4 Mg/2 Ml Vial IV PUSH 4 mg Q4H PRN Administration Nausea Pantoprazole Sodium 40 mg 11/07/20 09:00 11/12/20 08:42 Pantoprazole Sodium Iv 40 Mg Vial IV PUSH 40 mg QAM MINOO Administration Radiology Results: ITS Impressions Abdomen/Pelvis CT 11/07/20 07:31 IMPRESSION: 2.4 cm probable left hypernephroma Very small sliding hiatal hernia Diffuse hepatic steatosis Abdomen X-Ray 11/07/20 16:06 IMPRESSION: 1: NG tube tip in the stomach. Labs Labs: Laboratory Results - last 24 hr 11/11/20 11/12/20 11/12/20 15:06 06:45 06:45 WBC 5.9 RBC 4.66 Hgb 13.4 L Hct 40.2 L MCV 86.3 MCH 28.8 MCHC 33.3 RDW 13.0 Plt Count 134 L D MPV 10.6 H % Immature Plt Fraction 6.6 Sodium 138 138 Potassium 4.5 3.6 Chloride 109 H 108 H Carbon Dioxide 23 24 Anion Gap 6 L 6 L BUN 8 L 5 L Creatinine 0.80 0.70 Estim Creat Clear Calc 122 138 Estimated GFR > 60 > 60 Glucose 102 106 Calcium 8.9 8.7 Magnesium 1.6 1.6 Total Bilirubin 0.6 0.7 AST 160 H 109 H ALT 189 H 171 H Alkaline Phosphatase 47 47 Total Protein 7.0 7.0 Albumin 3.8 3.5 Lipase 69 42
[2020-11-12] MEDS: POTASSIUM CHLORIDE 20 MEQ TABLET 40 MEQ PO (10:22)
--- NOTE | 2020-11-12 13:50 | PM.IMPN ---
Progress Note: A&P Assessment and Plan (1) Gastric outlet obstruction: Code(s): K31.1 - Adult hypertrophic pyloric stenosis Status: Acute Assessment and Plan: 11/11/20 13:33 Baldomero Gallego is a 35 year old male with significant history of alcohol abuse and pancreatitis, patient states he drinks on and off however for last 2 weeks he has been extensively drinking and for last 2 days patient has developed abdominal pain nausea and vomiting, patient was not able to keep anything p.o. patient thought he may be having exacerbation of his pancreatitis however his symptoms were not improving he presented emergency department for further evaluation while in the emergency depart patient was having emesis and NG tube was placed 2 L of stomach content was evacuated, CT scan of abdomen did not show any acute pancreatitis nor there elevated lipase, there is no intestinal obstruction, while in the emergency depart patient did have a BM, most likely emesis secondary to alcohol abuse, and concerned that patient may have gastric outlet obstruction, patient is high risk of DT as he had previously, currently patient is on NG and NPO will place the patient on Ativan 1 mg IV every 4-6 hours as needed and 0.5 mg Dilaudid every 4 hours as needed for pain, patient will be seen by GI and further recommendation to follow. 11/08 today patient still c/o pain and still persisting, he removed the NG tube, but no nausea or vomiting, secondary to alcohol abuse, will try clear liquids if he can tolerate, will start on Librium to prevent DT, patient's CT scan of abdomen showed renal mass suspicious for renal cell carcinoma apparently patient is aware of the mass and was seen by urologist in [place], seen by urologist here recommending patient will need to be followed at tertiary care because he does not have any insurance. Today patient lipase are trending up will continue to monitor IV hydration and pain control. 11/09 on 11/08 started the patient on clear liquid which is able to tolerate denies any nausea or vomiting, lipase levels trending down seen by GI does not suspect pancreatitis rather secondary to alcohol abuse, yesterday also started the patient Librium 50 mg every 6 hours, remains clinically stable, will advance diet to full liquid, will continue to monitor and taper barium is symptoms improve, patient will benefit from PT OT, patient will benefit abstain from alcohol and rehab 11/10 today patient still complains of abdominal pain feels nauseated is still is on for clear liquid and complains of abdominal pain with eating, patient seen by GI does not suspect gastric outlet obstruction syndrome however if the symptoms do persist patient may need further evaluation with a EGD, patient remains clinically stable he does not show any sign or symptoms DT he is on Librium currently 25 mg every 6 hours will continue to monitor and further recommendation to follow, will have a PT OT evaluate the patient. 11/11 patient with history of alcohol abuse, acute pancreatitis, patient's symptoms are improving somewhat and was able to tolerate clear liquid plan was to discharge the patient on regular diet if tolerated can be discharged home however patient had a regular diet and had an episode of vomiting, will give the patient Zofran, will continue clear liquids as tolerated, GI recommending if patient cannot tolerate regular diet he will need EGD to further evaluate which can happen on Friday meanwhile will continue to monitor, patient remains clinically stable he does not show any sign or symptoms of DT he is on Librium currently 25 mg every 6 hours will continue to monitor and further recommendation to follow, will have a PT OT evaluate the patient. 11/12 patient was given solid food yesterday however he had an emesis and was placed back to clear liquid however patient is not eating or drinking much and does complaint of nausea and abdominal pain no fever or chills, seen by GI recommendi
[2020-11-12 13:56] VITALS: BP 153/99; PULSE 80; RESP 16; TEMP 36; O2SAT 100
[2020-11-12] MEDS: hydrALAZINE HCL 20 MG/ML VIAL 10 MG IV PUSH (14:05)
[2020-11-12 15:15] VITALS: BP 145/90; PULSE 96
[2020-11-12 20:08] VITALS: BP 159/90; PULSE 97; RESP 12; TEMP 36.6; O2SAT 100
[2020-11-13] VITALS (11 sets, daily range): BP systolic 137–183; BP diastolic 70–107; PULSE 72–101; RESP 12–24; TEMP 36–37; O2SAT 99–100
[2020-11-13] MEDS: HYDROcodone/acetaminophen (*CRX) 5-325 MG TABLET 1 TAB PO ×4 (01:10→21:08)
[2020-11-13] MEDS: SODIUM CHLORIDE 0.9% IV 1,000 ML 125 ML IV CONT ×2 (03:35→16:42)
[2020-11-13 05:51] LABS: Hematocrit 39.4 % (42.0-52.0); Hemoglobin 13.2 g/dL (14.0-18.0); Mean Corpuscular HGB Conc 33.5 g/dl (32-36); Mean Corpuscular Hemoglobin 29.3 pg (26-34); Mean Corpuscular Volume 87.4 fl (80-100); Mean Platelet Volume 12.2 fl (7.4-10.4); Platelet Count Result 43 k/mm3 (150-375); Red Blood Count 4.51 M/mm3 (4.6-6.20); Red Cell Distribution Width 13.3 % (11.5-14.5)
[2020-11-13 06:07] LABS: Alanine Aminotransferase 158 U/L (4-50); Albumin Level 3.5 g/dL (3.5-5.1); Alkaline Phosphatase 42 U/L (38-126); Anion Gap 5 mmol/L (8-16); Aspartate Amino Transferase 83 U/L (17-59); Bilirubin,Total 0.6 mg/dL (0.2-1.3); Blood Urea Nitrogen 4 mg/dL (9-20); Calcium 8.9 mg/dL (8.4-10.2); Carbon Dioxide 24 mmol/L (22-30); Chloride 109 mmol/L (98-107); Estimated CRCL calculation 138 ml/min; Estimated Glomerular Filt Rate > 60; Glucose 98 mg/dL (75-110); Lipase 34 U/L (23-300); Magnesium 1.4 mg/dL (1.6-2.3); Potassium 3.8 mmol/L (3.4-5.0); Sodium 138 mmol/L (137-145)
[2020-11-13] MEDS: hydrALAZINE HCL 20 MG/ML VIAL 10 MG IV PUSH (06:22)
[2020-11-13] MEDS: LACTATED RINGERS 1,000 ML 150 ML IV CONT (08:41)
--- NOTE | 2020-11-13 09:24 | WPDANESEPPF ---
Anes - Initial Pre Proc Eval Procedure: Operation Date: 11/13/20 10:00 Proposed Procedures p Esophagogastroduodenoscopy - Julius Sauer MD Date/Time: 11/13/20 09:24 Surgeon: Sushil Khan MD Pre Op Diagnosis: Gastric outlet obstruction, alcoholism Patient Data Age: 35 Gender: M Height: 1.68 m Weight: 95 kg Last Vital Signs Temp 36.3 C L 11/13/20 08:38 Pulse 84 11/13/20 08:38 Resp 20 11/13/20 08:38 BP 183/107 H 11/13/20 08:38 Pulse Ox 100 11/13/20 08:38 Allergies Allergy/AdvReac Type Severity Reaction Status Date / Time codeine Allergy Mild Hives / Verified 11/13/20 08:36 Red Face morphine Allergy Mild Itching Verified 11/13/20 08:36 Home Medications Medication Instructions Recorded Confirmed Type allopurinol 100 mg tablet 100 mg PO BID #60 tablet 12/07/19 11/07/20 Rx amlodipine 5 mg tablet 5 mg PO DAILY #90 tablet 12/07/19 11/07/20 Rx metoprolol tartrate 50 mg tablet 50 mg PO BID #60 tablet 12/07/19 11/07/20 Rx dicyclomine 10 mg PO BID 5 Days #10 cap 08/11/20 11/07/20 Rx metoclopramide HCl [Reglan] 10 mg PO Q6H PRN #20 tablet 08/11/20 11/07/20 Rx simethicone 125 mg PO QID #20 cap 08/12/20 11/07/20 Rx amoxicillin 1,000 mg PO Q12HR #56 cap 11/14/20 Rx clarithromycin 500 mg PO Q12HR #14 tablet 11/14/20 Rx pantoprazole 40 mg PO Q12HR #60 tablet 11/14/20 Rx Laboratory Tests 11/13/20 11/13/20 05:24 05:24 WBC 6.0 K/mm3 K/mm3 (4.5-10.0) RBC 4.51 M/mm3 L M/mm3 (4.6-6.20) Hgb 13.2 g/dL L g/dL (14.0-18.0) Hct 39.4 % L % (42.0-52.0) MCV 87.4 fl fl (80-100) MCH 29.3 pg pg (26-34) MCHC 33.5 g/dl g/dl (32-36) RDW 13.3 % % (11.5-14.5) Plt Count 43 k/mm3 L D k/mm3 (150-375) MPV 12.2 fl H fl (7.4-10.4) Sodium 138 mmol/L mmol/L (137-145) Potassium 3.8 mmol/L mmol/L (3.4-5.0) Chloride 109 mmol/L H mmol/L (98-107) Carbon Dioxide 24 mmol/L mmol/L (22-30) Anion Gap 5 mmol/L L mmol/L (8-16) BUN 4 mg/dL L mg/dL (9-20) Creatinine 0.70 mg/dL mg/dL (0.7-1.3) Estim Creat Clear Calc 138 ml/min ml/min Estimated GFR > 60 (59 - ) Glucose 98 mg/dL mg/dL (75-110) Calcium 8.9 mg/dL mg/dL (8.4-10.2) Magnesium 1.4 mg/dL L mg/dL (1.6-2.3) Total Bilirubin 0.6 mg/dL mg/dL (0.2-1.3) AST 83 U/L H U/L (17-59) ALT 158 U/L H U/L (4-50) Alkaline Phosphatase 42 U/L U/L (38-126) Total Protein 7.0 g/dL g/dL (6.3-8.2) Albumin 3.5 g/dL g/dL (3.5-5.1) Lipase 34 U/L U/L (23-300) Patient hx anesthesia problems: none Family hx anesthesia problems: none PMFSH Past Medical History Medical History (Updated 11/14/20 @ 11:43 by Julius Sauer MD) Alcohol abuse Gout HTN (hypertension) Pancreatitis Surgical History Surgical History No history of previous surgery Family History Family History Father Cancer Other Hypertension Social History Social History (Reviewed 11/08/20 @ 12:21 by IALN Bravo Social History: Smoking status: Never smoker Second hand tobacco smoke exposure: No Alcohol intake: current Drinks per week: 10 Substance use: never Substance use type: does not use Other substance usage details: 1 pint vodka/daily; 5 beers/week Last use: 11/06 Gender identity (if verbalized by the patient): Male Spiritual care concerns: No Agree to blood products: Yes Anes - Eval Final PreProcedure Day of Procedure 11/13/20 09:24 Informed Consent: The patient's anesthetic plan and its attendant risks and benefits were discussed with the patient/family/POA. Questions were solicited and answers provided to the satisfaction of the patient/family/POA.
[2020-11-13] MEDS: BENZOCAINE (*SP) 60 ML SPRAY CAN (HURRICAINE) 1 SPRAY MUCOUS MEM (09:35)
[2020-11-13] MEDS: PANTOPRAZOLE SODIUM IV 40 MG VIAL IV PUSH (10:14)
[2020-11-14] MEDS: SODIUM CHLORIDE 0.9% IV 1,000 ML 125 ML IV CONT ×2 (01:14→09:59)
[2020-11-14] MEDS: HYDROcodone/acetaminophen (*CRX) 5-325 MG TABLET 1 TAB PO ×3 (01:20→15:28)
[2020-11-14 06:03] VITALS: BP 157/98; PULSE 77; RESP 18; TEMP 36.9; O2SAT 100
[2020-11-14 06:07] LABS: Hematocrit 35.8 % (42.0-52.0); Hemoglobin 12.1 g/dL (14.0-18.0); Mean Corpuscular HGB Conc 33.8 g/dl (32-36); Mean Corpuscular Hemoglobin 28.9 pg (26-34); Mean Corpuscular Volume 85.6 fl (80-100); Mean Platelet Volume 10.2 fl (7.4-10.4); Platelet Count Result 169 k/mm3 (150-375); Red Blood Count 4.18 M/mm3 (4.6-6.20); Red Cell Distribution Width 13.4 % (11.5-14.5); White Blood Count 6.1 K/mm3 (4.5-10.0)
[2020-11-14 06:23] LABS: Alanine Aminotransferase 159 U/L (4-50); Albumin Level 3.5 g/dL (3.5-5.1); Alkaline Phosphatase 47 U/L (38-126); Anion Gap 6 mmol/L (8-16); Aspartate Amino Transferase 87 U/L (17-59); Bilirubin,Total 0.3 mg/dL (0.2-1.3); Blood Urea Nitrogen 8 mg/dL (9-20); Calcium 8.7 mg/dL (8.4-10.2); Carbon Dioxide 26 mmol/L (22-30); Chloride 107 mmol/L (98-107); Estimated CRCL calculation 122 ml/min; Estimated Glomerular Filt Rate > 60; Glucose 96 mg/dL (75-110); Lipase 39 U/L (23-300); Magnesium 1.3 mg/dL (1.6-2.3); Potassium 3.3 mmol/L (3.4-5.0); Sodium 139 mmol/L (137-145)
[2020-11-14] MEDS: hydrALAZINE HCL 20 MG/ML VIAL 10 MG IV PUSH (06:44)
[2020-11-14] MEDS: PANTOPRAZOLE SODIUM IV 40 MG VIAL IV PUSH (08:51)
--- NOTE | 2020-11-14 08:57 | WPDANESPN ---
Anes - Prog Note Post-Op Date/Time: 11/14/20 08:57 Cardiovascular status: normal Respiratory status: normal Airway patency: baseline Mental status: baseline Post-Op hydration status: normal Vital Signs: Last Vital Signs Temp 36.9 C 11/14/20 06:03 Pulse 77 11/14/20 06:03 Resp 18 11/14/20 06:03 BP 157/98 H 11/14/20 06:03 Pulse Ox 100 11/14/20 06:03 Pain Score (VAS): 0 I/O: Intake & Output 11/13/20 11/14/20 11/14/20 23:59 07:59 15:59 Intake Total 540 1000 Balance 540 1000 Laboratory Tests 11/14/20 06:02 11/14/20 06:02 11/14/20 11/14/20 06:02 06:02 WBC 6.1 RBC 4.18 L Hgb 12.1 L Hct 35.8 L MCV 85.6 MCH 28.9 MCHC 33.8 RDW 13.4 Plt Count 169 D MPV 10.2 Sodium 139 Potassium 3.3 L Chloride 107 Carbon Dioxide 26 Anion Gap 6 L BUN 8 L Creatinine 0.80 Estim Creat Clear Calc 122 Estimated GFR > 60 Glucose 96 Calcium 8.7 Magnesium 1.3 L Total Bilirubin 0.3 AST 87 H ALT 159 H Alkaline Phosphatase 47 Total Protein 6.0 L Albumin 3.5 Lipase 39 Post-procedural complaints: none Patient Feedback: Patient satisfied with anesthetic care.
[2020-11-14] MEDS: POTASSIUM CHLORIDE 20 MEQ TABLET 40 MEQ PO (09:58)
[2020-11-14] MEDS: MAGNESIUM SULFATE 3GM/D5W100ML 3 GM/100 ML BAG IVPB (10:03)
--- NOTE | 2020-11-14 11:07 | PCNWS ---
Weekly nutritional screen. Patient is tolerating current diet with adequate intake. Patient reported having a fantastic appetite and no complaints about the food. When asked about refusing meals he said that he refused certain items such as coffee and tea, not whole meals. No weight loss reported. No nutritional needs at this time. Patient said he is planning for discharge around 3:00 pm today, 11/14.
[2020-11-14] MEDS: CLARITHROMYCIN 500 MG TABLET PO (11:33)
[2020-11-14] MEDS: AMOXICILLIN 500 MG CAPSULE 1000 MG PO (11:33)
--- NOTE | 2020-11-14 11:42 | WPDGIPROGNO ---
Progress Note: A&P Assessment and Plan (1) Alcoholic hepatitis: Code(s): K70.10 - Alcoholic hepatitis without ascites Status: Acute Assessment and Plan: Serum transaminases elevated consistent with alcoholic hepatitis. Plan for alcohol avoidance follow-up LFTs as an outpatient. Strict alcohol avoidance encourage. (2) Nausea and vomiting in adult: Code(s): R11.2 - Nausea with vomiting, unspecified Status: Acute Assessment and Plan: Nausea and vomiting resolved. No obstruction by endoscopy. Advance diet as tolerated. (3) Renal mass: Code(s): N28.89 - Other specified disorders of kidney and ureter Status: Acute Assessment and Plan: Urology follow-up of renal mass that is suspicious for renal cell carcinoma. (4) H. pylori infection: Code(s): A04.8 - Other specified bacterial intestinal infections Status: Acute Assessment and Plan: H pylori identified by empiric biopsy at time of endoscopy potentially could have contributed to his epigastric discomfort. Now on triple therapy for 2 weeks he should be on PPI b.i.d. with Biaxin and amoxicillin for 2 week course. Subjective Date/time seen: 11/14/20 11:42 Patient comfortable tolerating diet today no more nausea and vomiting. Review of Systems Review of Systems: All systems reviewed & are unremarkable except as noted in HPI and below Exam Narrative: Exam Narrative: Physical exam reveals patient be alert. Vital signs stable. HEENT exam reveals him to be anicteric. Lungs are clear. Heart without murmur. Abdomen bowel sounds present soft nontender. Objective Data Vital Signs Vital Signs: Vital Signs - 24 hr 11/13/20 12:15 11/13/20 14:00 11/13/20 20:00 Temperature 97.2 F L 97.2 F L 98.6 F Pulse Rate 78 94 83 Respiratory Rate 16 16 16 Blood Pressure 155/91 H 155/91 H 139/83 Pulse Oximetry 100 100 100 11/14/20 06:03 Temperature 98.5 F Pulse Rate 77 Respiratory Rate 18 Blood Pressure 157/98 H Pulse Oximetry 100 Intake/Output Intake/Output: Intake & Output 11/11/20 11/12/20 11/13/20 11/14/20 23:59 23:59 23:59 23:59 Intake Total 4100 4280 3060 2540 Output Total 2000 3250 900 Balance 2100 1030 2160 2540 Meds/Results Medications: Active Medications Generic Name Dose Route Start Last Admin Trade Name Freq PRN Reason Stop Dose Admin Hydrocodone Bitart/Acetaminophen 1 tab 11/10/20 13:05 11/14/20 08:59 Hydrocodone/Acetaminophen (*Crx) 5-325 Mg Tablet PO 1 tab Q4H PRN Administration Pain Rated 4-6 Amoxicillin 1,000 mg 11/14/20 12:00 11/14/20 11:33 Amoxicillin 500 Mg Capsule PO 1,000 mg Q12HR MINOO Administration Chlordiazepoxide HCl 25 mg 11/12/20 00:00 Chlordiazepoxide (*Crx) 25 Mg Capsule PO 11/14/20 16:00 Q8H PRN Anxiety Clarithromycin 500 mg 11/14/20 12:00 11/14/20 11:33 Clarithromycin 500 Mg Tablet PO 500 mg Q12HR MINOO Administration Hydralazine HCl 10 mg 11/07/20 20:55 11/14/20 06:44 Hydralazine Hcl 20 Mg/Ml Vial IV PUSH 10 mg Q4H PRN Administration Blood Pressure - High Sodium Chloride 1,000 mls @ 125 mls/hr 11/07/20 07:45 11/14/20 09:59 Normal Saline Iv IV CONT 125 mls/hr .Q8H MINOO Administration Lorazepam 1 mg 11/07/20 09:26 11/07/20 09:41 Lorazepam Inj (*Crx) 2 Mg/Ml Vial IV PUSH 1 mg Q4H PRN Administration Anxiety Pantoprazole Sodium 40 mg 11/14/20 21:00 Pantoprazole 40 Mg Tablet PO Q12HR [facility] Radiology Results: ITS Impressions Abdomen/Pelvis CT 11/07/20 07:31 IMPRESSION: 2.4 cm probable left hypernephroma Very small sliding hiatal hernia Diffuse hepatic steatosis Abdomen X-Ray 11/07/20 16:06 IMPRESSION: 1: NG tube tip in the stomach. Abdomen Ultrasound 11/13/20 13:19 IMPRESSION: 1. No sonographic correlate for the patient's symptoms. 2. Diffuse hepatic steatosis. 3. Known suspicious left k
--- NOTE | 2020-11-14 12:43 | PCNSR ---
On 11/14/20, the student,Alla Wheeler, provided care and completed [facility] documentation on this patient. I have reviewed the student's documentation and agree with the findings.
[2020-11-14 14:26] VITALS: BP 149/88; PULSE 106; RESP 20; O2SAT 100
[2020-11-14 15:25] LABS: Anion Gap 5 mmol/L (8-16); Blood Urea Nitrogen 8 mg/dL (9-20); Calcium 8.9 mg/dL (8.4-10.2); Carbon Dioxide 27 mmol/L (22-30); Chloride 108 mmol/L (98-107); Estimated CRCL calculation 122 ml/min; Estimated Glomerular Filt Rate > 60; Glucose 98 mg/dL (75-110); Potassium 3.9 mmol/L (3.4-5.0); Sodium 140 mmol/L (137-145)
--- NOTE | 2020-11-14 15:43 | PC.NURSE ---
1, Marisa De Paz clinical instructor for [employer], have reviewed and approve student nurse - Glenn Arzate's charting for the today
--- NOTE | 2020-11-14 15:53 | PM.DS ---
DS: Admitting Diagnosis Admitting Diagnosis Admitting Diagnosis: Chief Complaint: Abdominal pain, alcohol withdrawal DS: Discharge Diagnosis Discharge Diagnosis (1) Gastric outlet obstruction: Code(s): K31.1 - Adult hypertrophic pyloric stenosis Status: Acute Assessment and Plan: 11/13/20 16:12 Baldomero Gallego is a 35 year old male with significant history of alcohol abuse and pancreatitis, patient states he drinks on and off however for last 2 weeks he has been extensively drinking and for last 2 days patient has developed abdominal pain nausea and vomiting, patient was not able to keep anything p.o. patient thought he may be having exacerbation of his pancreatitis however his symptoms were not improving he presented emergency department for further evaluation while in the emergency depart patient was having emesis and NG tube was placed 2 L of stomach content was evacuated, CT scan of abdomen did not show any acute pancreatitis nor there elevated lipase, there is no intestinal obstruction, while in the emergency depart patient did have a BM, most likely emesis secondary to alcohol abuse, and concerned that patient may have gastric outlet obstruction, patient is high risk of DT as he had previously, currently patient is on NG and NPO will place the patient on Ativan 1 mg IV every 4-6 hours as needed and 0.5 mg Dilaudid every 4 hours as needed for pain, patient will be seen by GI and further recommendation to follow. 11/08 today patient still c/o pain and still persisting, he removed the NG tube, but no nausea or vomiting, secondary to alcohol abuse, will try clear liquids if he can tolerate, will start on Librium to prevent DT, patient's CT scan of abdomen showed renal mass suspicious for renal cell carcinoma apparently patient is aware of the mass and was seen by urologist in [place], seen by urologist here recommending patient will need to be followed at tertiary care because he does not have any insurance. Today patient lipase are trending up will continue to monitor IV hydration and pain control. 11/09 on 11/08 started the patient on clear liquid which is able to tolerate denies any nausea or vomiting, lipase levels trending down seen by GI does not suspect pancreatitis rather secondary to alcohol abuse, yesterday also started the patient Librium 50 mg every 6 hours, remains clinically stable, will advance diet to full liquid, will continue to monitor and taper barium is symptoms improve, patient will benefit from PT OT, patient will benefit abstain from alcohol and rehab 11/10 today patient still complains of abdominal pain feels nauseated is still is on for clear liquid and complains of abdominal pain with eating, patient seen by GI does not suspect gastric outlet obstruction syndrome however if the symptoms do persist patient may need further evaluation with a EGD, patient remains clinically stable he does not show any sign or symptoms DT he is on Librium currently 25 mg every 6 hours will continue to monitor and further recommendation to follow, will have a PT OT evaluate the patient. 11/11 patient with history of alcohol abuse, acute pancreatitis, patient's symptoms are improving somewhat and was able to tolerate clear liquid plan was to discharge the patient on regular diet if tolerated can be discharged home however patient had a regular diet and had an episode of vomiting, will give the patient Zofran, will continue clear liquids as tolerated, GI recommending if patient cannot tolerate regular diet he will need EGD to further evaluate which can happen on Friday meanwhile will continue to monitor, patient remains clinically stable he does not show any sign or symptoms of DT he is on Librium currently 25 mg every 6 hours will continue to monitor and further recommendation to follow, will have a PT OT evaluate the patient. 11/12 patient was given solid food yesterday however he had an emesis and was placed back to clear liquid however
== END 2020-11-14 17:20 | disposition home or self-care (01) | DRG 433 ==
LOC: ANHED 07:46 → ANH3MED 07:55
PROVIDERS: Internal Medicine Gastroenterology; Admitting Provider Family Medicine; Emergency Provider Emergency Medicine; PCP Family Medicine; Visit Provider Family Medicine
PROC: 0DJ08ZZ Inspection of Upper Intestinal Tract, Via Natural or Artificial Opening Endoscopic (ICD-10-PCS; CPT 43235; principal; 2020-11-13 10:00)
DX: K70.10 Alcoholic hepatitis without ascites (principal); K31.1 Adult hypertrophic pyloric stenosis; N28.89 Other specified disorders of kidney and ureter; I10 Essential (primary) hypertension; M10.9 Gout, unspecified; F10.20 Alcohol dependence, uncomplicated
CPT/HCPCS: 36415; 74177; 76700; 80048; 80053; 81001; 83690; 83735; 85025; 85027; 85055; 87081; 93005; 96374; 96375; 97161; 97165; 99285; A9270; C9113; J0360; J1170; J1200; J2060; J2405; J2704; J3010; J3475; J3480; J7030; J7120; Q9967

== ENCOUNTER 2021-06-23 10:04 | Emergency (ER) | payer SELFPAY ==
[2021-06-23] VITALS (16 sets, daily range): BP systolic 147–164; BP diastolic 78–102; PULSE 78–93; RESP 18–20; TEMP 36.1; O2SAT 92–100
--- NOTE | ~2021-06-23 | CT_ITS ---
EXAMINATION: CT abdomen pelvis w con INDICATION: Right upper quadrant pain TECHNIQUE: Computed tomographic images of the abdomen and pelvis were obtained after the administrati on of 100 cc of Omnipaque 350 intravenous contrast. The dose-length product (DLP) was 715.77 mGy-cm. Automated exposure control and iterative reconstruction technique were employed. COMPARISON: 11/07/2020 FINDINGS: Minimal dependent atelectasis is present in the lung bases. The heart size is normal. The l iver is diffusely low in attenuation when compared with the spleen, which could reflect reported rece nt heavy alcohol consumption. The spleen, pancreas, gallbladder, and adrenal glands are normal. The r ight kidney is unremarkable. There is a 2.6 cm heterogeneous mass of the left kidney which continues to demonstrate slow interval increase in size. No pathologically enlarged abdominal or pelvic lymph n odes are identified. There is no free intraperitoneal gas or evidence of bowel obstruction. The appen obdulio is normal. Colonic diverticulosis is present without evidence of diverticulitis. There is an umbi lical hernia containing fat and nonobstructed bowel. IMPRESSION: 1. No CT correlate for the patient's symptoms. 2. Slowly enlarging left kidney mass concerning for renal cell carcinoma. Follow-up with nonemergent abdomen MRI without and with contrast is recommended. Reviewed, dictated and finalized at location A. IMPRESSION: 1. No CT correlate for the patient's symptoms. 2. Slowly enlarging left kidney mass concerning for renal cell carcinoma. Follo w-up with nonemergent abdomen MRI without and with contrast is recommended.
--- NOTE | 2021-06-23 10:25 | ED.ABDPAIN ---
HPI - Abdominal Pain General Chief Complaint: Abdominal Pain Stated Complaint: ABD PAIN Source: RN notes reviewed History of Present Illness HPI narrative: Patient presents emergency department from home via EMS for abdominal pain. Patient states symptoms began approximately 3 AM today pain is located diffusely throughout the abdomen worse in the upper abdomen described as sharp and stabbing associate with nausea vomiting. Patient states he has a history of previous pancreatitis this feels like prior states he did drink a pint of vodka yesterday denies any fevers or chills chest pain shortness of breath diarrhea or any other symptom Related Data Allergies Allergy/AdvReac Type Severity Reaction Status Date / Time codeine Allergy Mild Hives / Verified 06/23/21 10:11 Red Face morphine Allergy Mild Itching Verified 06/23/21 10:11 Review of Systems Review of Systems: Gen.: Denies fevers or chills ENT: Denies congestion Respiratory: Denies shortness of breath or cough CV: Denies chest pain or palpitations GI: See HPI denies burning, urgency, frequency or hematuria Musculoskeletal: Denies back pain or muscle pain Neuro: Denies numbness, tingling, weakness or focal weakness Skin: Denies rash Except as documented, all other systems reviewed and negative [facility], [facility] Past Medical History Medical History (Updated 06/23/21 @ 13:46 by Valeriano Dent DO) Alcohol abuse Gout HTN (hypertension) Pancreatitis Surgical History Surgical History No history of previous surgery Family History Family History Father Cancer Other Hypertension Social History Social History Social History: Smoking status: Never smoker Second hand tobacco smoke exposure: No Alcohol intake: current Drinks per week: 10 Alcohol use details: a pint a week Substance use: never Substance use type: does not use Other substance usage details: 1 pint vodka/daily; 5 beers/week Last use: 11/06 Gender identity (if verbalized by the patient): Male Spiritual care concerns: No Agree to blood products: Yes Exam Narrative: APPEARANCE: No acute distress, nontoxic, resting in bed HEENT: Normocephalic, atraumatic, OMM RESPIRATORY: No respiratory distress, clear to auscultation bilaterally with no rhonchi wheezing or rales CARDIOVASCULAR: RRR s murmur ABDOMINAL: Soft nondistended diffusely tender to palpation no rebound or guarding MUSCULOSKELETAl: Moves all extremities. No clubbing, cyanosis or edema. NEURO: Awake and alert. Following commands, speech normal, no focal deficits SKIN:: Warm, dry. Normal Color PSYCHIATRIC: Normal affect/mood Course Course Emergency Course: Reviewed old records Patient states that they are feeling much better at this time. States abdominal pain has improved. Repeat abdominal exam shows the patient's abdomen to be soft with no surgical M present discussed with patient results of workup and diagnosis. Discussed need for follow-up with primary care physician, reasons to return to the emergency department in proper use of medication. Patient understands and agrees to current treatment plan. Discussed with patient renal mass and concern for renal cell carcinoma discussed need for follow-up with urology as outpatient Vital Signs Vital signs: Vital Signs Blood Pressure 158/102 H 06/23/21 10:06 Temperature 97.0 F L 06/23/21 10:08 Pulse Rate 93 06/23/21 12:30 Respiratory Rate 18 06/23/21 12:30 Blood Pressure 164/93 H 06/23/21 12:30 Pulse Oximetry 100 06/23/21 12:30 MDM - Abdominal Pain MDM Narrative Medical decision making narrative: Patient's abdomen is soft without significant pain or signs of surgical abdomen on serial exams. Lab and x-ray evaluations are reviewed and patient is felt to be a reasonab
[2021-06-23 10:59] LABS: Basophils Absolute Auto 0.1 K/mm3 (0.0-0.1); Basophils Percent Auto 1.5 % (0.2-1.2); Eosinophils Absolute Auto 0.2 K/mm3 (0-0.3); Eosinophils Percent Auto 2.2 % (0-4.4); Hematocrit 50.3 % (42.0-52.0); Hemoglobin 16.6 g/dL (14.0-18.0); Immature Granulocyte Absolute 0.02 K/mm3 (0.00-0.031); Immature Granulocyte Percent A 0.3 % (0-0.5); Lymphocytes Absolute Auto 1.95 K/mm3 (0.9-3.2); Mean Corpuscular Hemoglobin 28.4 pg (26-34); Mean Platelet Volume 10.1 fl (7.4-10.4); Monocytes Absolute Auto 0.5 K/mm3 (0.1-0.6); Monocytes Percent Auto 7.2 % (2.6-8.5); Neutrophils Absolute Auto 4.5 K/mm3 (1.3-6.7); Neutrophils Percent Auto 61.8 % (45.5-73.1); Platelet Count Result 332 k/mm3 (150-375); Red Blood Count 5.85 M/mm3 (4.6-6.20); Red Cell Distribution Width 13.3 % (11.5-14.5); White Blood Count 7.2 K/mm3 (4.5-10.0)
[2021-06-23 11:07] LABS: Add Urine Microscopic? YES; Appearance Urine Clear (Clear); Bilirubin Urine Negative (Negative); Blood Urine Negative (Negative); Color Urine Yellow (Yellow); Glucose Urine UA Negative (Negative); Ketones Urine Negative (Negative); Leukocyte Esterase Ur Negative LEU/UL (Negative); Mucus Urine Rare /lpf; Nitrate Urine Negative (Negative); Protein Urine 1+ mg/dL (Negative); RBC Urine 0-2 /hpf (0-2); Specific Grav Ur 1.029 (1.001-1.035); WBC Urine 0-3 /hpf
[2021-06-23 11:09] LABS: Alanine Aminotransferase 48 U/L (4-50); Albumin Level 4.9 g/dL (3.5-5.1); Alkaline Phosphatase 86 U/L (38-126); Anion Gap 15 mmol/L (8-16); Aspartate Amino Transferase 76 U/L (17-59); Bilirubin,Total 1.1 mg/dL (0.2-1.3); Blood Urea Nitrogen 18 mg/dL (9-20); Carbon Dioxide 26 mmol/L (22-30); Chloride 98 mmol/L (98-107); Estimated CRCL calculation 98 ml/min; Estimated Glomerular Filt Rate > 60; Glucose 140 mg/dL (65-110); Lipase 331 U/L (23-300); Potassium 3.9 mmol/L (3.4-5.0); Sodium 139 mmol/L (137-145)
[2021-06-23] MEDS: ONDANSETRON INJ 4 MG/2 ML VIAL IV PUSH (11:24)
[2021-06-23] MEDS: SODIUM CHLORIDE 0.9% IV 1,000 ML 999 ML IV CONT ×2 (11:25→12:23)
[2021-06-23] MEDS: HYDROmorphone HCL INJ (*CRX) 1 MG/ML SYR 0.5 MG IV PUSH (13:48)
== END 2021-06-23 14:50 | disposition home or self-care (01) ==
PROVIDERS: Emergency Provider Emergency Medicine; PCP Family Medicine
DX: R10.10 Upper abdominal pain, unspecified (principal); N28.89 Other specified disorders of kidney and ureter; I10 Essential (primary) hypertension; M10.9 Gout, unspecified
CPT/HCPCS: 36415; 74177; 80053; 81001; 83690; 85025; 96361; 96374; 96375; 99284; A9270; J1170; J2405; J7030; Q9967

== ENCOUNTER 2021-06-24 06:51 | Emergency (ER) | payer SELFPAY ==
[2021-06-24 07:02] VITALS: BP 165/101; PULSE 76; RESP 17; TEMP 36.6; O2SAT 96
[2021-06-24 07:38] LABS: Basophils Absolute Auto 0.1 K/mm3 (0.0-0.1); Basophils Percent Auto 0.8 % (0.2-1.2); Eosinophils Absolute Auto 0.2 K/mm3 (0-0.3); Eosinophils Percent Auto 3.6 % (0-4.4); Hematocrit 45.3 % (42.0-52.0); Hemoglobin 14.9 g/dL (14.0-18.0); Immature Granulocyte Absolute 0.03 K/mm3 (0.00-0.031); Immature Granulocyte Percent A 0.5 % (0-0.5); Lymphocytes Absolute Auto 2.18 K/mm3 (0.9-3.2); Lymphocytes Percent Auto 32.9 % (18.3-44.2); Mean Corpuscular HGB Conc 32.9 g/dl (32-36); Mean Corpuscular Hemoglobin 28.7 pg (26-34); Mean Corpuscular Volume 87.1 fl (80-100); Mean Platelet Volume 10.1 fl (7.4-10.4); Monocytes Absolute Auto 0.6 K/mm3 (0.1-0.6); Monocytes Percent Auto 8.8 % (2.6-8.5); Neutrophils Absolute Auto 3.5 K/mm3 (1.3-6.7); Neutrophils Percent Auto 53.4 % (45.5-73.1); Platelet Count Result 185 k/mm3 (150-375); White Blood Count 6.6 K/mm3 (4.5-10.0)
[2021-06-24 07:48] LABS: Alanine Aminotransferase 51 U/L (4-50); Albumin Level 4.2 g/dL (3.5-5.1); Alkaline Phosphatase 85 U/L (38-126); Anion Gap 8 mmol/L (8-16); Aspartate Amino Transferase 78 U/L (17-59); Bilirubin,Total 2.2 mg/dL (0.2-1.3); Blood Urea Nitrogen 13 mg/dL (9-20); Calcium 8.8 mg/dL (8.4-10.2); Carbon Dioxide 30 mmol/L (22-30); Chloride 99 mmol/L (98-107); Estimated Glomerular Filt Rate > 60; Glucose 114 mg/dL (65-110); Lipase 861 U/L (23-300); Potassium 3.4 mmol/L (3.4-5.0); Sodium 137 mmol/L (137-145)
[2021-06-24] MEDS: ONDANSETRON INJ 4 MG/2 ML VIAL IV PUSH (08:02)
[2021-06-24] MEDS: SODIUM CHLORIDE 0.9% IV 1,000 ML 999 ML IV CONT (08:04)
[2021-06-24 09:23] VITALS: BP 188/100; PULSE 78; RESP 18; O2SAT 99
[2021-06-24] MEDS: PANTOPRAZOLE SODIUM IV 40 MG VIAL IV PUSH (10:29)
[2021-06-24] MEDS: KETOROLAC 30 MG/ML VIAL (*BKC) IV PUSH (10:29)
[2021-06-24 10:42] VITALS: BP 178/87; PULSE 78; RESP 20; O2SAT 99
[2021-06-24 12:25] VITALS: BP 169/89; PULSE 88; RESP 18; O2SAT 98
--- NOTE | 2021-06-24 12:52 | ED.ABDPAIN ---
HPI - Abdominal Pain General Chief Complaint: Nausea/Vomiting/Diarrhea Stated Complaint: vomiting - seen x 3. Time Seen by Provider: 06/24/21 07:07 Source: patient Mode of arrival: ambulatory History of Present Illness HPI narrative: 35-year-old with a history of hypertension, gout, alcohol induced pancreatitis here with complaints of upper abdominal pain, nausea and vomiting since last 2 days. Patient states that he was seen here in the ER for the same. He also mentions that he has taken his home medication but no relief. He denies any blood in his vomitus or black-colored stool. No history of fever or chills. He states that his last drink was 2 days ago. MD elicited complaint: abdominal pain Pertinent past history: other (Pancreatitis) Onset (ago): day(s) (2) Quality: aching Radiation: epigastric Exacerbating factors: nothing Relieving factors: nothing Context: confirms other (Recent alcohol use) Associated symptoms: nausea and vomiting Related Data Allergies Allergy/AdvReac Type Severity Reaction Status Date / Time codeine Allergy Mild Hives / Verified 06/24/21 07:09 Red Face morphine Allergy Mild Itching Verified 06/24/21 07:09 Review of Systems Review of Systems: All systems reviewed & are unremarkable except as noted in HPI and below Constitutional: Constitutional: Reports no additional constitutional complaints Eyes: Eyes: Reports no additional eye complaints ENT: Reports system reviewed and no additional complaints, except as documented Cardiovascular: Cardiovascular: Reports no additional cardiovascular complaints Respiratory: Respiratory: Reports no additional respiratory complaints Gastrointestinal: Gastrointestinal: Reports as per HPI Musculoskeletal: Musculoskeletal: Reports no additional musculoskeletal complaints Integumentary/Breasts: Skin/Breast: Reports system reviewed and no additional complaints, except as docu PMFSH Past Medical History Medical History Alcohol abuse Gout HTN (hypertension) Pancreatitis Surgical History Surgical History No history of previous surgery Family History Family History Father Cancer Other Hypertension Social History Social History Social History: Smoking status: Never smoker Second hand tobacco smoke exposure: No Alcohol intake: current Drinks per week: 10 Alcohol use details: a pint a week Substance use: never Substance use type: does not use Other substance usage details: 1 pint vodka/daily; 5 beers/week Last use: 11/06 Gender identity (if verbalized by the patient): Male Spiritual care concerns: No Agree to blood products: Yes Exam Narrative: GENERAL: Well-appearing, well-nourished, and in no acute distress. HEAD: Normocephalic, atraumatic. EYES: PERRLA and EOMI. ENT: Nares clear, no rhinorrhea or epistaxis. Mucous membranes moist. NECK: Supple. CHEST: Clear to auscultation. No respiratory distress. HEART: Regular rate and rhythm. No murmur heard. Normal peripheral pulses. ABDOMEN: Soft, mild epigastric and upper abdominal tenderness, nondistended, normal active bowel sounds. EXTREMITIES: Normal range of motion. No edema. SKIN: Warm, dry, no rash. NEURO: No focal deficits. Alert and oriented x3. PSYCH: Normal mood and affect. Course Course Emergency Course: I have reviewed his CT scan done yesterday which did not show any evidence of pancreatitis. Patient had no further episodes of nausea or vomiting. Did give him Toradol and Protonix for pain. Advised him to refrain from alcohol. Take medications as prescribed. Be on a liquid diet. Vital Signs Vital signs: Vital Signs Temperature 36.6 C 06/24/21 07:02 Pulse Rate 76 06/24/21 07:02 Respiratory Rate 17 06/24/21 07:02
== END 2021-06-24 13:00 | disposition home or self-care (01) ==
PROVIDERS: Emergency Provider Family Medicine; PCP Family Medicine
DX: K29.70 Gastritis, unspecified, without bleeding (principal); I10 Essential (primary) hypertension
CPT/HCPCS: 36415; 80053; 83690; 85025; 96361; 96374; 96375; 99284; C9113; J1885; J2405; J7030

== ENCOUNTER 2021-09-04 18:15 | Inpatient (IN) | payer SELFPAY ==
--- NOTE | ~2021-09-04 | US_ITS ---
EXAMINATION: US venous doppler UE DATE: 09/09/2021 12:22 INDICATION: Upper limb swelling. TECHNIQUE: Grayscale ultrasound images without and with compression and Doppler ultrasound images of the bilateral upper extremity veins were obtained. COMPARISON: None. FINDINGS: The visualized portions of the right internal jugular vein, subclavian vein, axillary vein, brachial veins, basilic vein, cephalic vein, radial vein, and ulnar vein are patent. The visualized portions of the left internal jugular vein, subclavian vein, axillary vein, brachial v eins, basilic vein, cephalic vein, radial vein, and ulnar vein are patent. IMPRESSION: 1. No deep venous thrombosis. Reviewed, dictated and finalized at location A. LEADER
--- NOTE | ~2021-09-04 | XR_ITS ---
EXAMINATION: XR wrist RT 2V DATE: 09/07/2021 21:16 INDICATION: Right wrist pain and swelling. TECHNIQUE: 2 views of right wrist were obtained. COMPARISON: None. FINDINGS: Bone alignment is normal. No fracture. Joint spaces are well maintained. IMPRESSION: 1. No fracture. Reviewed, dictated and finalized at location A. F EXECUTIVE OR MANAGING DIRECTOR IMPRESSION: 1. No fracture.
--- NOTE | ~2021-09-04 | CT_ITS ---
EXAMINATION: CT abdomen pelvis w con EXAM DATE: 09/05/2021 02:22 INDICATION: abdominal pain, elevated lipase . TECHNIQUE: Spiral CT of the abdomen and pelvis was performed following intravenous injection of 100 m L Omnipaque 350. Axial, coronal and sagittal images of the abdomen and pelvis were reviewed. The do se-length product (DLP) for this examination was 713.89 mGy-cm. The exposure was tailored according to patient size (auto mA exposure control), and iterative reconstruction (ASIR) was used as additiona l dose reduction technique. Comparison is made to prior examination from 06/23/2021. FINDINGS: Heterogeneously enhancing left renal mass consistent with renal cell cancer measuring 2.4 c m. No hydronephrosis. Prostate and bladder are unremarkable. Mild inflammation along the body and tail of the pancreas consistent with acute pancreatitis. There i s narrowing of the splenic vein posterior to this, probably from mass effect of the edematous pancrea tic body and tail. No evidence of intraluminal thrombus within. Development of hypodense pancreatic t ail region which was not present on prior study, would favor some pancreatic duct dilation or pseudoc yst formation over neoplastic process. Several calcifications in the pancreatic uncinate process, ry dence of chronic pancreatitis. There is hepatic steatosis. Gallbladder is unremarkable. No biliary obstruction. There is no retro peritoneal or pelvic lymphadenopathy. Some dehiscence of the abdominal wall at the umbilicus. The appendix is normal. The stomach and small bowel are unremarkable. There is expected amount of c olonic stool. No free intraperitoneal gas. The heart is normal in size. There are no pericardial or pleural effusions. The lung bases are unremarkable. There are no osteoblastic or osteolytic les ions identified. IMPRESSION: 1. Left 2.4 cm renal cell cancer. Size and location might be amenable to cryoablation. 2. Acute on chronic pancreatitis. Development of pancreatic tail hypodense region, favor duct dilati on or early pseudocyst over neoplasm. Reviewed, dictated and finalized at location A. OND DRILLER HELPER IMPRESSION: 1. Left 2.4 cm renal cell cancer. Size and location might be amenable to cryoa blation. 2. Acute on chronic pancreatitis. Development of pancreatic tail hypodense reg ion, favor duct dilation or early pseudocyst over neoplasm.
--- NOTE | ~2021-09-04 | MR_ITS ---
EXAMINATION: MR MRCP wo/w con/w 3D wo ind DATE: 09/06/2021 18:37 INDICATION: Pancreatitis. Abdominal pain. Nausea. TECHNIQUE: Magnetic resonance imaging (MRI) of the abdomen was performed without and with 20 mL Multi [place] intravenous contrast. Sequences included coronal T2-weighted FS FSE, coronal T2-weighted FSE, a xial T1-weighted LAVA, coronal FS FIESTA, axial dual-echo T1-weighted SPGR, coronal lava-FLEX, sagitt al T2-weighted FSE, axial T2-weighted FSE, and axial DWI. Thick-slab T2-weighted FSE images were obta ined for magnetic resonance cholangiopancreatography (MRCP). Maximum intensity projection 3-D reconst ructions of the volumetric data were created by the technologist. Postcontrast sequences included cor onal LAVA-flex and time course of axial T1-weighted LAVA. COMPARISON: CT abdomen and pelvis 09/05/2021 FINDINGS: ABDOMEN MRI: The liver, gallbladder, spleen, and adrenal glands are normal. There is fat stranding ar ound the tail of the pancreas with dilatation of the pancreatic duct and pancreatic duct sidechains i n the tail of the pancreas, consistent with acute pancreatitis. The right kidney is normal. There is a 2.2 cm mixed cystic and solid enhancing mass in left kidney. There are no dilated loops of bowel. ABDOMEN MRCP: The common duct is normal and measures 4 mm. No choledocholithiasis. IMPRESSION: 1. Acute interstitial pancreatitis. 2. 2.2 cm Bosniak type IV cystic lesion of left kidney, consistent with renal cell carcinoma. Reviewed, dictated and finalized at location A. ACTORY FURNACE DESIGNER IMPRESSION: 1. Acute interstitial pancreatitis. 2. 2.2 cm Bosniak type IV cystic lesion of left kidney, consistent with renal c ell carcinoma.
--- NOTE | ~2021-09-04 | XR_ITS ---
EXAMINATION: XR chest 2V DATE: 09/04/2021 18:36 INDICATION: Left-sided chest pain. Shortness of breath. TECHNIQUE: Frontal and lateral views of the chest were obtained. COMPARISON: Chest 2 views 06/11/2019 FINDINGS: There is no pneumonia, pleural effusion, or pneumothorax. The heart size is normal. IMPRESSION: 1. No acute cardiopulmonary disease. Reviewed, dictated and finalized at location A. ERTY PRESERVATION SPECIALIST
--- NOTE | 2021-09-04 18:18 | ECG_ITS ---
Measurements Intervals [place] Rate: 87 P: 68 ID: [id number] QRS: 40 QRSD: 90 T: -36 QT: 332 QTc: 400 Interpretive Statements SINUS RHYTHM BORDERLINE ST-T WAVE ABNORMALITY- INFERIOR LEADS BORDERLINE ECG Electronically Signed On 09-05-2021 6:25:51 INSURANCE SALES REPRESENTATIVE by Maurizio Malin D.O.
[2021-09-04 18:33] VITALS: BP 173/97; PULSE 87; RESP 16; TEMP 36.1; O2SAT 99
[2021-09-04 18:35] LABS: Basophils Absolute Auto 0.1 K/mm3 (0.0-0.1); Basophils Percent Auto 0.9 % (0.2-1.2); Eosinophils Absolute Auto 0.3 K/mm3 (0-0.3); Eosinophils Percent Auto 3.2 % (0-4.4); Hematocrit 45.3 % (42.0-52.0); Hemoglobin 15.4 g/dL (14.0-18.0); Immature Granulocyte Absolute 0.04 K/mm3 (0.00-0.031); Immature Granulocyte Percent A 0.4 % (0-0.5); Lymphocytes Absolute Auto 2.45 K/mm3 (0.9-3.2); Lymphocytes Percent Auto 24.3 % (18.3-44.2); Mean Corpuscular Hemoglobin 29.6 pg (26-34); Mean Corpuscular Volume 87.1 fl (80-100); Mean Platelet Volume 10.5 fl (7.4-10.4); Monocytes Absolute Auto 0.7 K/mm3 (0.1-0.6); Monocytes Percent Auto 7.1 % (2.6-8.5); Neutrophils Absolute Auto 6.5 K/mm3 (1.3-6.7); Neutrophils Percent Auto 64.1 % (45.5-73.1); Platelet Count Result 386 k/mm3 (150-375); Red Cell Distribution Width 12.9 % (11.5-14.5); White Blood Count 10.1 K/mm3 (4.5-10.0)
[2021-09-04 18:46] LABS: Alanine Aminotransferase 22 U/L (4-50); Alkaline Phosphatase 71 U/L (38-126); Anion Gap 11 mmol/L (8-16); Aspartate Amino Transferase 26 U/L (17-59); Bilirubin,Total 0.8 mg/dL (0.2-1.3); Blood Urea Nitrogen 17 mg/dL (9-20); Calcium 9.9 mg/dL (8.4-10.2); Carbon Dioxide 25 mmol/L (22-30); Chloride 98 mmol/L (98-107); Estimated CRCL calculation 108 ml/min; Estimated Glomerular Filt Rate > 60; Glucose 116 mg/dL (65-110); Lipase 522 U/L (23-300); Sodium 134 mmol/L (137-145)
[2021-09-04 18:47] LABS: Prothrombin Time 12.6 Seconds (11.1-14.7)
[2021-09-04 18:48] LABS: Partial Thromboplastin Time 28.6 SECONDS (22.3-36.8)
[2021-09-04 18:57] LABS: Troponin I < 0.012 ng/mL (0.000-0.034)
[2021-09-04 23:05] VITALS: BP 158/104; PULSE 85; O2SAT 100
[2021-09-04 23:36] LABS: Troponin I < 0.012 ng/mL (0.000-0.034)
--- NOTE | 2021-09-05 01:00 | PC.NURSE ---
Pt in room 4 at this time.
[2021-09-05] MEDS: ONDANSETRON INJ 4 MG/2 ML VIAL IV PUSH (02:48)
[2021-09-05] MEDS: SODIUM CHLORIDE 0.9% IV 1,000 ML 999 ML IV CONT (02:48)
[2021-09-05] MEDS: HYDROmorphone HCL INJ (*CRX) 1 MG/ML SYR IV PUSH ×7 (02:48→23:18)
--- NOTE | 2021-09-05 04:27 | ED.GENADULT ---
HPI - General Adult General Chief complaint: Chest Pain Stated complaint: abd and chest pain Time Seen by Provider: 09/05/21 01:36 History of Present Illness HPI narrative: Patient is a 36-year-old gentleman who presents the emergency department with chief complaint of epigastric pain. The patient states the pain is in the epigastrium region reports it is sharp and radiates to his left shoulder blade. The patient reports he has had pancreatitis before in the past and this feels similar to whenever he has had pancreatitis although this episode is worse than previous episodes. Patient does report that he has history of a renal mass that his primary doctor is aware of. The patient states that this episode is significantly worse than his previous episodes. Related Data Allergies Allergy/AdvReac Type Severity Reaction Status Date / Time codeine Allergy Mild Hives / Verified 09/05/21 01:01 Red Face morphine Allergy Mild Itching Verified 09/05/21 01:01 Review of Systems Review of Systems: A 10 system review of systems was completed on the patient and is negative except for what is stated in the HPI. Nursing and ancillary documentation was reviewed. [facility] Past Medical History Medical History (Updated 09/05/21 @ 04:30 by Diego Bolaños MD) Alcohol abuse Gout HTN (hypertension) Pancreatitis Surgical History Surgical History No history of previous surgery Family History Family History Father Cancer Other Hypertension Social History Social History Social History: Smoking status: Never smoker Second hand tobacco smoke exposure: No Alcohol intake: current Drinks per week: 10 Alcohol use details: a pint a week Substance use: never Substance use type: does not use Other substance usage details: 1 pint vodka/daily; 5 beers/week Last use: 11/06 Gender identity (if verbalized by the patient): Male Spiritual care concerns: No Agree to blood products: Yes Exam Narrative: GENERAL: Well-appearing, well-nourished, and in no acute distress. HEAD: Normocephalic, atraumatic. EYES: PERRLA and EOMI. ENT: Nares clear, no rhinorrhea or epistaxis. Mucous membranes moist. NECK: Supple. CHEST: Clear to auscultation. No respiratory distress. HEART: Regular rate and rhythm. No murmur heard. Normal peripheral pulses. ABDOMEN: Soft, tender to palpation in the epigastric region, nondistended, normal active bowel sounds. EXTREMITIES: Normal range of motion. No edema. SKIN: Warm, dry, no rash. NEURO: No focal deficits. Alert and oriented x3. PSYCH: Normal mood and affect. Course Course Emergency Course: CT scan showed evidence of acute pancreatitis, there is also a renal mass the radiologist recommended a MRI abdomen pelvis with and without contrast to further characterize the findings. Vital Signs Vital signs: Vital Signs Temperature 36.1 C L 09/04/21 18:33 Pulse Rate 87 09/04/21 18:33 Respiratory Rate 16 09/04/21 18:33 Blood Pressure 173/97 H 09/04/21 18:33 Pulse Oximetry 99 09/04/21 18:33 Temperature 36.1 C L 09/04/21 18:33 Pulse Rate 85 09/04/21 23:05 Respiratory Rate 16 09/04/21 18:33 Blood Pressure 158/104 H 09/04/21 23:05 Pulse Oximetry 100 09/04/21 23:05 Medical Decision Making Vital Signs Vital Signs: Vital Signs Temperature 36.1 C L 09/04/21 18:33 Pulse Rate 87 09/04/21 18:33 Respiratory Rate 16 09/04/21 18:33 Blood Pressure 173/97 H 09/04/21 18:33 Pulse Oximetry 99 09/04/21 18:33 Temperature 36.1 C L 09/04/21 18:33 Pulse Rate 85 09/04/21 23:05 Respiratory Rate 16 09/04/21 18:33 Blood Pressure 158/104 H 09/04/21 23:05 Pulse Oximetry 100 09/04/21 23:05 Lab Data Result diagrams: 09/04/21 18:27
[2021-09-05 04:32] VITALS: BP 145/84; PULSE 88; RESP 16; O2SAT 100
[2021-09-05 06:12] VITALS: BP 123/80; PULSE 78; RESP 17; TEMP 36; O2SAT 98; BMI 36.1
--- NOTE | 2021-09-05 06:20 | ADMGEN ---
This patient, Baldomero Gallego, was admitted to Medical Room 343-01. Patient/family oriented to hospital policies and general routines including ID bracelet, bed and alarms, visiting hours, pain management, procedures, bathroom and other care routines, personal items, smoking policy, room service/diet, and visiting hours. Information on how to activate the Rapid Response Team has been discussed. Patient/Family are encouraged to report perceived risks to care and to ask questions if they do not understand what they are told or what they should do.
[2021-09-05] MEDS: SODIUM CHLORIDE 0.9% IV 1,000 ML 125 ML IV CONT ×3 (06:43→23:06)
--- NOTE | 2021-09-05 08:08 | PM.IMHP ---
H&P: HPI History of Present Illness Date/Time: 09/05/21 08:08 cc: epigastric pain. HPI: Patient is a 36-year-old gentleman who presents the emergency department with chief complaint of epigastric pain. The patient states the pain is in the epigastrium region reports it is sharp and radiates to his left shoulder blade. He also endorses a single episode of vomiting this morning, with food particles. There was no blood in the vomitus. He denies bloody stools. The patient reports he has had pancreatitis before in the past and this feels similar to whenever he has had pancreatitis although this episode is worse than previous episodes. Patient does report that he has history of a renal mass that his primary doctor is aware of. The patient states that this episode is significantly worse than his previous episodes. Currently patient is very stressed, chronically sleep deprived as is working full-time to support himself as a student. He sleeps 4-5 hours each night. In addition he takes ibuprofen 2 tablets 3 times a day sometimes without food for headaches. He denies recent ETOH use. Patient has consume large quantities fatty food over the holiday weekend. In the emergency department the patient is stable and afebrile with a temp of 36.6?, pulse rate 76, respiratory rate 17, blood pressure 165/101, pulse oximetry 96% on room air. He CBC shows a WBC of 10.1, hemoglobin 15.4, hematocrit 45.3% count of 386. His coagulation profile is within normal range. His chemistry shows a sodium of 134, potassium 4, chloride 98, bicarb 25, BUN 17, creatinine 0.9. Blood glucose is 116. Liver function tests are within normal range with total bilirubin 2.8, AST 26, ALT 22, alkaline phosphatase 71. Troponin were negative x2. Total protein 9, albumin 5. Lipase is elevated at 522. Patient was appropriately started on NPO, IV fluids, hydromorphone for pain, and Zofran as needed for nausea. Patient has improved symptomatically with NPO and IV fluid. We have started him on clear liquid diet. GI will be consulted in a.m.. Patient is admitted inpatient for at least 2 midnights. Chief Complaint: abdominal and chest pain. Review of Systems Review of Systems: All systems reviewed & are unremarkable except as noted in HPI and below Constitutional: Constitutional: Reports as per HPI, Denies fatigue, Denies lethargy and Denies weakness Eyes: Eyes: Reports as per HPI, Denies blurry vision and Denies photophobia ENT: Reports as per HPI, Denies dysphagia, Denies epistaxis and Denies nasal congestion Cardiovascular: Cardiovascular: Reports as per HPI, Denies chest pain, Denies diaphoresis and Denies palpitations Respiratory: Respiratory: Reports as per HPI, Denies cough, Denies dyspnea and Denies dyspnea on exertion Gastrointestinal: Gastrointestinal: Reports as per HPI, Reports abdominal pain, Reports nausea and Reports vomiting Comments: Right upper quadrant abdominal pain radiating to the left scapula. [facility] Past Medical History Medical History (Updated 09/06/21 @ 11:21 by Mesfin Ponce MD) Alcohol abuse Gout HTN (hypertension) Pancreatitis Surgical History Surgical History No history of previous surgery Family History Family History Father Cancer Hypertension Mother Hypertension Social History Social History Social History: Smoking status: Never smoker Second hand tobacco smoke exposure: No Alcohol intake: current Drinks per week: 12 Alcohol use details: a pint a week Substance use: never Substance use type: does not use Other substance usage details: 1 pint vodka/daily; 5 beers/week Last use: 11/06 Gender identity (if verbalized by the patient): Male Spiritual care concerns: No Agree to blood products: Yes Meds Home Medications and Allergies
[2021-09-05 14:49] VITALS: BP 143/81; PULSE 20; RESP 20; TEMP 36.6; O2SAT 98
[2021-09-05 20:45] VITALS: BP 118/63; PULSE 75; RESP 16; TEMP 36.2; O2SAT 96
[2021-09-06] MEDS: HYDROmorphone HCL INJ (*CRX) 1 MG/ML SYR IV PUSH ×4 (03:26→20:51)
[2021-09-06 05:05] VITALS: BP 126/73; PULSE 70; RESP 16; TEMP 36; O2SAT 98
[2021-09-06 06:28] LABS: Hematocrit 42.8 % (42.0-52.0); Hemoglobin 14.2 g/dL (14.0-18.0); Mean Corpuscular HGB Conc 33.2 g/dl (32-36); Mean Corpuscular Hemoglobin 29.7 pg (26-34); Mean Corpuscular Volume 89.5 fl (80-100); Mean Platelet Volume 10.2 fl (7.4-10.4); Platelet Count Result 338 k/mm3 (150-375); Red Blood Count 4.78 M/mm3 (4.6-6.20); White Blood Count 6.4 K/mm3 (4.5-10.0)
--- NOTE | 2021-09-06 06:53 | WPDGICN ---
Assessment and Plan Assessment and plan (1) Acute pancreatitis: Qualifiers: Acute pancreatitis complication: unspecified Pancreatitis type: unspecified pancreatitis type Qualified Code(s): K85.90 - Acute pancreatitis without necrosis or infection, unspecified Code(s): K85.90 - Acute pancreatitis without necrosis or infection, unspecified Status: Acute Assessment and Plan: we had a discussion about pancreatitis. I explained to him that once a person has had pancreatitis, recurrences are very likely with even smaller amounts of alcohol. Other etiologies could be hyperlipidemia. He states he was on something in the past for elevated lipids. Another consideration would be pancreas divisum. To rule that out I will schedule him for MRCP. (2) Alcoholism: Code(s): F10.20 - Alcohol dependence, uncomplicated Status: Acute Assessment and Plan: He knows that he needs to avoid alcohol and has counseled regarding that in the past (3) Abnormal liver function: Code(s): R94.5 - Abnormal results of liver function studies Status: Acute Assessment and Plan: his elevated liver enzymes and bilirubin her likely due to the alcohol. Based on imaging studies we have that does not appear to be an obstructive jaundice. I explained him that continued alcohol use could also cause cirrhosis GI Consult Note Consult date/time: 09/06/21 06:53 HPI: Baldomero Gallego is a 36 year old male was admitted with acute pancreatitis. He has had pancreatitis in the past, most recently in November of this year. CT scan is negative for any biliary issues. He had CT scan and ultrasound on his previous admission which likewise were negative for any gallstone related problems. He also has a renal mass that has been diagnosed as renal carcinoma. The patient was seen today by Dr. Garcia, who felt that he could be treated with cryoablation, which can be done at [facility]. Patient states that his symptoms began on Friday and he came in here on Friday. He had some which foods over Thanksgiving but denies having had any alcohol in the past week. However the family member in his room states that prior to last week that the patient had been drinking quite heavily and was drunk he has had pancreatitis on 2 previous occasions. He was in [place] in 2011. At that time an EGD revealed gastritis. He was also hospitalized here in November of this year with acute pancreatitis which was thought to be due to alcohol abuse. This CT scan does show acute on chronic pancreatitis suggesting that he has chronic, calcific pancreatitis which is almost always due to alcohol. Review of Systems Review of Systems: All systems reviewed & are unremarkable except as noted in HPI and below PMFSH Past Medical History Medical History (Updated 09/06/21 @ 11:21 by Mesfin Ponce MD) Alcohol abuse Gout HTN (hypertension) Pancreatitis Surgical History Surgical History No history of previous surgery Family History Family History Father Cancer Hypertension Mother Hypertension Social History Social History Social History: Smoking status: Never smoker Second hand tobacco smoke exposure: No Alcohol intake: current Drinks per week: 12 Alcohol use details: a pint a week Substance use: never Substance use type: does not use Other substance usage details: 1 pint vodka/daily; 5 beers/week Last use: 2 Gender identity (if verbalized by the patient): Male Spiritual care concerns: No Agree to blood products: Yes Meds Home Medications and Allergies Home Medications Medication Instructions Recorded Confirmed Type allopurinol 100 mg tablet 100 mg PO BID #60 tablet 12/07/19 09/05/21 Rx amlodipine 5 mg
--- NOTE | 2021-09-06 06:55 | WPDURCON ---
Assessment and Plan Assessment and plan (1) Left renal mass: Code(s): N28.89 - Other specified disorders of kidney and ureter Status: Acute Assessment and Plan: Enhancing 2.4 cm left renal mass consistent with renal cell carcinoma. Patient is aware this mass and the likelihood that it represents a malignancy. He is interested in pursuing thermal ablation. At discharge, I would recommend referring him to Interventional Radiology at [facility]. Urology Consult Note HPI Date Seen: 09/06/21 Requesting Physician: Rodolfo White MD Primary Care Provider: Samantha Gonzalez MD Consult Narrative Narrative: Baldomero Gallgeo is a 36 year old male who we are consulted regarding a 2.4 cm left renal mass. Discussion with patient he says this is known to have been present and concerning for renal cell carcinoma since 2011. He had been seeing a urologist in [place] who was following this conservatively. There had been some talk of thermal ablation patient never formally consulted an interventional radiologist regarding that. He denies flank pain hematuria or constitutional symptoms. Is now admitted with acute pancreatitis Review of Systems Cardiovascular: Cardiovascular: Denies chest pain, Denies lightheadedness, Denies palpitations and Denies dyspnea Respiratory: Respiratory: Denies dyspnea Gastrointestinal: Gastrointestinal: Reports GI cramping, Denies diarrhea, Denies nausea and Denies vomiting Genitourinary: Genitourinary: Denies hematuria and Denies dysuria Endocrine: Endocrine: Denies palpitations PMFSH Past Medical History Medical History Alcohol abuse Gout HTN (hypertension) Pancreatitis Surgical History Surgical History No history of previous surgery Family History Family History Father Cancer Hypertension Mother Hypertension Social History Social History Social History: Smoking status: Never smoker Second hand tobacco smoke exposure: No Alcohol intake: current Drinks per week: 12 Alcohol use details: a pint a week Substance use: never Substance use type: does not use Other substance usage details: 1 pint vodka/daily; 5 beers/week Last use: 2/ Gender identity (if verbalized by the patient): Male Spiritual care concerns: No Agree to blood products: Yes Meds Home Medications and Allergies Home Medications Medication Instructions Recorded Confirmed Type allopurinol 100 mg tablet 100 mg PO BID #60 tablet 12/07/19 09/05/21 Rx amlodipine 5 mg tablet 5 mg PO DAILY #90 tablet 12/07/19 09/05/21 Rx metoprolol tartrate 50 mg tablet 50 mg PO BID #60 tablet 12/07/19 09/05/21 Rx simethicone 125 mg PO QID #20 cap 08/12/20 09/05/21 Rx famotidine [Pepcid] 20 mg PO DAILY #14 tablet 06/23/21 09/05/21 Rx Adults Multivitamin 1 tablet PO DAILY 09/05/21 09/05/21 History folic acid 800 mcg PO DAILY 09/05/21 09/05/21 History Allergies Allergy/AdvReac Type Severity Reaction Status Date / Time codeine Allergy Mild Hives / Verified 09/05/21 06:27 Red Face morphine Allergy Mild Itching Verified 09/05/21 06:27 Vital Signs Vital Signs - 24 hr 09/05/21 14:49 09/05/21 20:45 09/06/21 05:05 Temperature 97.9 F 97.2 F L 96.8 F L Pulse Rate 20 L 75 70 Respiratory Rate 20 16 16 Blood Pressure 143/81 H 118/63 126/73 Pulse Oximetry 98 96 98 Exam Const: General: no acute distress Resp: Effort & Inspection: normal respiratory effort GI: Inspection: non-distended GI Palp: No abdominal tenderness and No Guarding due to palpation present (GI) Auscultation: normal bowel sounds Results Labs CBC & Chem 7: 09/06/21 06:18 09/04/21 18:27 Labs: Short CBC 09/06/21 Range/Units
[2021-09-06 06:59] LABS: Alanine Aminotransferase 21 U/L (4-50); Albumin Level 4.6 g/dL (3.5-5.1); Alkaline Phosphatase 59 U/L (38-126); Anion Gap 8 mmol/L (8-16); Aspartate Amino Transferase 35 U/L (17-59); Bilirubin,Total 1.2 mg/dL (0.2-1.3); Blood Urea Nitrogen 12 mg/dL (9-20); Calcium 9.3 mg/dL (8.4-10.2); Carbon Dioxide 25 mmol/L (22-30); Chloride 101 mmol/L (98-107); Estimated CRCL calculation 142 ml/min; Estimated Glomerular Filt Rate > 60; Glucose 85 mg/dL (65-110); Lipase 234 U/L (23-300); Potassium 4.3 mmol/L (3.4-5.0); Sodium 134 mmol/L (137-145)
[2021-09-06] MEDS: SODIUM CHLORIDE 0.9% IV 1,000 ML 125 ML IV CONT (09:18)
--- NOTE | 2021-09-06 10:13 | PM.IMPN ---
Progress Note: A&P Assessment and Plan (1) Acute pancreatitis: Qualifiers: Acute pancreatitis complication: unspecified Pancreatitis type: unspecified pancreatitis type Qualified Code(s): K85.90 - Acute pancreatitis without necrosis or infection, unspecified Code(s): K85.90 - Acute pancreatitis without necrosis or infection, unspecified Status: Acute Assessment and Plan: Likely related to going into atrial. Continue conservative management with clear liquid diet pain valve and Zofran as needed for nausea vomiting. Advance diet as tolerated. Follow-up GI recommendations. (2) Left renal mass: Code(s): N28.89 - Other specified disorders of kidney and ureter Status: Acute Assessment and Plan: this left renal mass is known from his primary care provider. Follow-up with Interventional Radiology at [facility] for definitive treatment as an outpatient. this left renal mass is known from his primary care provider. (3) Nausea and vomiting in adult: Code(s): R11.2 - Nausea with vomiting, unspecified Status: Acute Assessment and Plan: Likely related to acute pancreatitis. Patient will be treated symptomatically with Zofran p.r.n... Likely related to acute pancreatitis. We will manage him symptomatically with Zofran as needed. (4) Alcoholic hepatitis: Code(s): K70.10 - Alcoholic hepatitis without ascites Status: Acute Assessment and Plan: Patient has previous history of alcoholic hepatitis but at this moment his LFTs are within normal limits. Patient has previous history of alcoholic hepatitis but at this moment his LFTs are within normal limits. (5) Renal mass: Code(s): N28.89 - Other specified disorders of kidney and ureter Status: Acute Assessment and Plan: Follow up with Interventional Radiology as an outpatient for definitive treatment. (6) Gastric outlet obstruction: Code(s): K31.1 - Adult hypertrophic pyloric stenosis Status: Acute Assessment and Plan: No evidence of obstruction on serial abdomen exam or imaging studies. No evidence of obstruction on serial abdomen exam or imaging studies. (7) Gout: Code(s): M10.9 - Gout, unspecified Status: Acute Assessment and Plan: Resume home medication when oral intake is tolerated. Resume home medication when oral intake is tolerated. (8) Alcoholism: Code(s): F10.20 - Alcohol dependence, uncomplicated Status: Acute Assessment and Plan: Counseled. Counseled. (9) HTN (hypertension): Code(s): I10 - Essential (primary) hypertension Status: Acute Assessment and Plan: continue amlodipine 5 mg p.o. daily and metoprolol 50 mg p.o. b.i.d.. (10) H. pylori infection: Code(s): A04.8 - Other specified bacterial intestinal infections Status: Acute (11) Alcohol abuse: Code(s): F10.10 - Alcohol abuse, uncomplicated Status: Acute Assessment and Plan: Counseled to quit drinking EtOH. Additional Plan Patient presenting with epigastric pain and elevated lipase. Previous episode of pancreatitis in December 2020, related to EtOH use. Currently patient denies ETOH use. Unfortunately urine tox screen was not sent on admission. Patient was managed conservatively with NPO IV fluid and pain management and improved clinically. Patient originally tolerated clear liquid diet. this morning he felt nauseous without vomiting. repeat LFTs and lipase are normal. Continue conservative management with IV clear liquid diet will advance as tolerated, pain management and Zofran as needed for nausea and or vomiting. Patient has been counseled to homes of abstinence from alcohol . Subjective Date/time seen: 09/06/21 10:00 S: Patient is examined at the bedside. He reports improvement of epigastric chest pain, but became nauseous after clear liquid this morning. Overall feeling better. Patient is m
[2021-09-06 14:30] VITALS: BP 138/87; PULSE 68; RESP 18; TEMP 37; O2SAT 100
[2021-09-06] MEDS: LORazepam (*CRX) 1 MG TABLET PO (15:56)
[2021-09-06 20:00] VITALS: PULSE 74; RESP 18; O2SAT 99
[2021-09-06 20:23] VITALS: BP 134/92; PULSE 74; RESP 18; TEMP 36.2; O2SAT 99
[2021-09-06] MEDS: MELATONIN 3 MG TABLET PO (20:52)
[2021-09-07] MEDS: HYDROmorphone HCL INJ (*CRX) 1 MG/ML SYR IV PUSH ×6 (00:54→21:15)
[2021-09-07] MEDS: SODIUM CHLORIDE 0.9% IV 1,000 ML 125 ML IV CONT ×3 (04:28→21:59)
[2021-09-07 05:57] VITALS: BP 136/76; PULSE 70; RESP 18; TEMP 36.2; O2SAT 100
[2021-09-07 14:17] VITALS: BP 144/78; PULSE 79; RESP 20; TEMP 36.4; O2SAT 100
--- NOTE | 2021-09-07 16:35 | PM.IMPN ---
Progress Note: A&P Assessment and Plan (1) Acute pancreatitis: Qualifiers: Acute pancreatitis complication: unspecified Pancreatitis type: unspecified pancreatitis type Qualified Code(s): K85.90 - Acute pancreatitis without necrosis or infection, unspecified Code(s): K85.90 - Acute pancreatitis without necrosis or infection, unspecified Status: Acute Assessment and Plan: Likely related to ongoing ETOH use. Continue conservative management with clear liquid diet, pain management and Zofran as needed for nausea vomiting. Advance diet as tolerated. Follow-up GI recommendations. (2) Left renal mass: Code(s): N28.89 - Other specified disorders of kidney and ureter Status: Acute Assessment and Plan: this left renal mass is known from his primary care provider. Follow-up with Interventional Radiology at [facility] for definitive treatment as an outpatient. this left renal mass is known from his primary care provider. (3) Nausea and vomiting in adult: Code(s): R11.2 - Nausea with vomiting, unspecified Status: Acute Assessment and Plan: Likely related to acute pancreatitis. Patient will be treated symptomatically with Zofran p.r.n... Likely related to acute pancreatitis. We will manage him symptomatically with Zofran as needed. (4) Alcoholic hepatitis: Code(s): K70.10 - Alcoholic hepatitis without ascites Status: Acute Assessment and Plan: Patient has previous history of alcoholic hepatitis but at this moment his LFTs are within normal limits. Patient has previous history of alcoholic hepatitis but at this moment his LFTs are within normal limits. (5) Renal mass: Code(s): N28.89 - Other specified disorders of kidney and ureter Status: Acute Assessment and Plan: Follow up with Interventional Radiology as an outpatient for definitive treatment. (6) Gastric outlet obstruction: Code(s): K31.1 - Adult hypertrophic pyloric stenosis Status: Acute Assessment and Plan: No evidence of obstruction on serial abdomen exam or imaging studies. No evidence of obstruction on serial abdomen exam or imaging studies. (7) Gout: Code(s): M10.9 - Gout, unspecified Status: Acute Assessment and Plan: Resume home medication when oral intake is tolerated. Resume home medication when oral intake is tolerated. (8) Alcoholism: Code(s): F10.20 - Alcohol dependence, uncomplicated Status: Acute Assessment and Plan: Counseled. Counseled. (9) HTN (hypertension): Code(s): I10 - Essential (primary) hypertension Status: Acute Assessment and Plan: continue amlodipine 5 mg p.o. daily and metoprolol 50 mg p.o. b.i.d.. (10) H. pylori infection: Code(s): A04.8 - Other specified bacterial intestinal infections Status: Acute (11) Alcohol abuse: Code(s): F10.10 - Alcohol abuse, uncomplicated Status: Acute Assessment and Plan: Counseled to quit drinking EtOH. Additional Plan Patient presenting with epigastric pain and elevated lipase. Previous episode of pancreatitis in December 2020, related to EtOH use. Currently patient denies ETOH use. Unfortunately urine tox screen was not sent on admission. Patient was managed conservatively with NPO IV fluid and pain management and improved clinically. Patient originally tolerated clear liquid diet. this morning he felt nauseous without vomiting. repeat LFTs and lipase are normal. Continue conservative management with IV clear liquid diet will advance as tolerated, pain management and Zofran as needed for nausea and or vomiting. Patient has been counseled to homes of abstinence from alcohol . Subjective Date/time seen: 09/07/21 16:35 S: Patient is examined at the bedside. He reports right upper quadrant pain earlier this morning at 4:00 a.m.. He is not able to tolerate easily milked and reverted back to
--- NOTE | 2021-09-07 17:06 | WPDGIPROGNO ---
Progress Note: A&P Assessment and Plan (1) Acute pancreatitis: Qualifiers: Acute pancreatitis complication: unspecified Pancreatitis type: unspecified pancreatitis type Qualified Code(s): K85.90 - Acute pancreatitis without necrosis or infection, unspecified Code(s): K85.90 - Acute pancreatitis without necrosis or infection, unspecified Status: Acute Assessment and Plan: we had a discussion about pancreatitis. I explained to him that once a person has had pancreatitis, recurrences are very likely with even smaller amounts of alcohol. Other etiologies could be hyperlipidemia. He states he was on something in the past for elevated lipids. Another consideration would be pancreas divisum. T MRCP was done which revealed normal caliber of the ducts and nothing structural abnormality. No stones were seen. I will order lipid panel if 1 has not been drawn (2) Alcoholism: Code(s): F10.20 - Alcohol dependence, uncomplicated Status: Acute Assessment and Plan: He knows that he needs to avoid alcohol and has counseled regarding that in the past today he had a 1 hour video conference with an alcohol addiction support group. He is definitely committed to quitting alcohol altogether (3) Abnormal liver function: Code(s): R94.5 - Abnormal results of liver function studies Status: Acute Assessment and Plan: his elevated liver enzymes and bilirubin her likely due to the alcohol. Based on imaging studies we have that does not appear to be an obstructive jaundice. I explained him that continued alcohol use could also cause cirrhosis. He is concerned about his liver. Explained that fatty liver would improve with weight loss and in particular avoidance of alcohol as obesity alcohol abuse are common factors contributing to hepatic steatosis. Subjective Date/time seen: 09/07/21 17:06 the patient states that his pain is better each day. He tried cream of Wheat this morning and it really exacerbated his pain. This evening however he had some full liquids including ice cream, and is feeling okay with that. He thinks maybe tomorrow he would be willing to try regular diet Exam Const: General: cooperative and comfortable Nutritional Appearance: average body habitus Cardio: Rhythm: regular rhythm GI: Inspection: normal to inspection GI Palp: Yes abdominal tenderness ( diffuse) and No Guarding due to palpation present (GI) Auscultation: normal bowel sounds Skin: General skin exam: normal color and no jaundice Extrem: Right upper extremity: Extremity exam: right hand ( his hands are swollen very tender) Objective Data Vital Signs Vital Signs: Vital Signs - 24 hr 09/06/21 20:00 09/06/21 20:23 09/07/21 05:57 Temperature 36.2 C L 36.2 C L Pulse Rate 74 74 70 Respiratory Rate 18 18 18 Blood Pressure 134/92 H 136/76 Pulse Oximetry 99 99 100 09/07/21 14:17 Temperature 36.4 C Pulse Rate 79 Respiratory Rate 20 Blood Pressure 144/78 H Pulse Oximetry 100 Intake/Output Intake/Output: Intake & Output 09/04/21 09/05/21 09/06/21 09/07/21 23:59 23:59 23:59 23:59 Intake Total 3000 2360 2020 Output Total 1350 Balance 3000 2360 670 Meds/Results Medications: Active Medications Generic Name Dose Route Start Last Admin Trade Name Freq PRN Reason Stop Dose Admin Calcium Carbonate 200 mg 09/05/21 19:49 Calcium Carbonate (Tums) 500 Mg (200 Mg Elemental) PO Q6H PRN Indigestion Hydromorphone HCl 1 mg 09/05/21 05:00 09/07/21 13:14 Hydromorphone Hcl Inj (*Crx) 1 Mg/Ml Syr IV PUSH 1 mg Q4H PRN Administration Pain Rated 7-10 Sodium Chloride 1,000 mls @ 125 mls/hr 09/05/21 05:00 09/07/21 14:14 Normal Saline Iv IV CONT 125 mls/hr .Q8H MINOO Administration Lorazepam 1 mg 09/06/21 15:25 09/06/21 15:56 Lorazepam (*Crx) 1 Mg Tablet PO 1 mg ONCE PRN Administration Anxiety Melatonin 3 mg 09/06/21 21:00
[2021-09-07 18:05] LABS: Cholesterol 220 mg/dL (0-200); HDL Direct 25 mg/dL; Triglycerides 124 mg/dL (<150)
[2021-09-07 18:16] LABS: LDL Cholesterol Direct 148 mg/dL
[2021-09-07 20:23] VITALS: BP 145/93; PULSE 71; RESP 16; TEMP 35.9; O2SAT 100
[2021-09-07] MEDS: MELATONIN 3 MG TABLET PO (21:16)
[2021-09-08] MEDS: HYDROmorphone HCL INJ (*CRX) 1 MG/ML SYR IV PUSH ×4 (01:24→14:19)
[2021-09-08 05:03] VITALS: BP 153/97; PULSE 76; RESP 16; TEMP 36.1; O2SAT 98
[2021-09-08 11:38] LABS: Basophils Absolute Auto 0.1 K/mm3 (0.0-0.1); Basophils Percent Auto 1.5 % (0.2-1.2); Eosinophils Absolute Auto 0.3 K/mm3 (0-0.3); Hematocrit 43.2 % (42.0-52.0); Hemoglobin 14.7 g/dL (14.0-18.0); Immature Granulocyte Absolute 0.04 K/mm3 (0.00-0.031); Immature Granulocyte Percent A 0.6 % (0-0.5); Lymphocytes Absolute Auto 1.41 K/mm3 (0.9-3.2); Lymphocytes Percent Auto 21.8 % (18.3-44.2); Mean Corpuscular Hemoglobin 29.6 pg (26-34); Mean Corpuscular Volume 87.1 fl (80-100); Mean Platelet Volume 10.3 fl (7.4-10.4); Monocytes Absolute Auto 0.6 K/mm3 (0.1-0.6); Monocytes Percent Auto 9.1 % (2.6-8.5); Neutrophils Absolute Auto 4.1 K/mm3 (1.3-6.7); Platelet Count Result 354 k/mm3 (150-375); Red Blood Count 4.96 M/mm3 (4.6-6.20); Red Cell Distribution Width 12.6 % (11.5-14.5); White Blood Count 6.5 K/mm3 (4.5-10.0)
[2021-09-08 11:58] LABS: Alanine Aminotransferase 22 U/L (4-50); Albumin Level 4.5 g/dL (3.5-5.1); Alkaline Phosphatase 68 U/L (38-126); Anion Gap 13 mmol/L (8-16); Aspartate Amino Transferase 26 U/L (17-59); Bilirubin,Total 0.7 mg/dL (0.2-1.3); Blood Urea Nitrogen 6 mg/dL (9-20); Calcium 9.9 mg/dL (8.4-10.2); Carbon Dioxide 24 mmol/L (22-30); Chloride 103 mmol/L (98-107); Estimated CRCL calculation 125 ml/min; Estimated Glomerular Filt Rate > 60; Glucose 126 mg/dL (65-110); Lipase 47 U/L (23-300); Potassium 3.8 mmol/L (3.4-5.0); Sodium 140 mmol/L (137-145)
[2021-09-08 14:00] VITALS: BP 140/93; PULSE 81; RESP 14; TEMP 35.7; O2SAT 99
[2021-09-08] MEDS: SODIUM CHLORIDE 0.9% IV 1,000 ML 50 ML IV CONT (14:17)
--- NOTE | 2021-09-08 17:04 | PM.IMPN ---
Progress Note: A&P Assessment and Plan (1) Acute pancreatitis: Qualifiers: Acute pancreatitis complication: unspecified Pancreatitis type: unspecified pancreatitis type Qualified Code(s): K85.90 - Acute pancreatitis without necrosis or infection, unspecified Code(s): K85.90 - Acute pancreatitis without necrosis or infection, unspecified Status: Acute Assessment and Plan: Likely related to ongoing ETOH use. Continue conservative management with clear liquid diet, pain management and Zofran as needed for nausea vomiting. Advance diet as tolerated. Follow-up GI recommendations. (2) Left renal mass: Code(s): N28.89 - Other specified disorders of kidney and ureter Status: Acute Assessment and Plan: this left renal mass is known from his primary care provider. Follow-up with Interventional Radiology at [facility] for definitive treatment as an outpatient. this left renal mass is known from his primary care provider. (3) Nausea and vomiting in adult: Code(s): R11.2 - Nausea with vomiting, unspecified Status: Acute Assessment and Plan: Likely related to acute pancreatitis. We will manage him symptomatically with Zofran as needed. Seems to be resolved. (4) Alcoholic hepatitis: Code(s): K70.10 - Alcoholic hepatitis without ascites Status: Acute Assessment and Plan: Patient has previous history of alcoholic hepatitis but at this moment his LFTs are within normal limits. (5) Gastric outlet obstruction: Code(s): K31.1 - Adult hypertrophic pyloric stenosis Status: Acute Assessment and Plan: No evidence of obstruction on serial abdomen exam or imaging studies. (6) Gout: Code(s): M10.9 - Gout, unspecified Status: Acute Assessment and Plan: Resume home medication when oral intake is tolerated. (7) Alcoholism: Code(s): F10.20 - Alcohol dependence, uncomplicated Status: Acute Assessment and Plan: Counseled. (8) HTN (hypertension): Code(s): I10 - Essential (primary) hypertension Status: Acute Assessment and Plan: continue amlodipine 5 mg p.o. daily and metoprolol 50 mg p.o. b.i.d.. Additional Plan Patient presenting with epigastric pain and elevated lipase. Previous episode of pancreatitis in December 2020, related to EtOH use. Currently patient denies ETOH use. Unfortunately urine tox screen was not sent on admission. Patient was managed conservatively with NPO IV fluid and pain management and improved clinically. Patient originally tolerated clear liquid diet. repeat LFTs and lipase are normal. Continue conservative management with IV clear liquid diet will advance as tolerated, pain management and Zofran as needed for nausea and or vomiting. Patient has been counseled to homes of abstinence from alcohol . Subjective Date/time seen: 09/08/21 17:04 Interval history: Pt is a 36 yo male w/ hx of ETOH abuse and pancreatitis, admitted to the hospital for acute pancreatitis. Today he states he is feeling better but continues to have epigastric pain. He had cream of wheat this morning which exacerbated his symptoms. He denies N/V. Having diarrhea but states it is because he had ice cream and is intolerant to dairy. C/o bilateral hand swelling right worse than left for the past 2 days. Now states R hand is uncomfortable when he makes a fist. Review of Systems Review of Systems: General: Denies fevers, chills Eyes: Denies vision changes or eye pain ENT: Denies nasal congestion or sore throat Respiratory: Denies cough or shortness of breath Cardiovascular: Denies chest pain, palpitations, or lower extremity edema Gastrointestinal: + abdominal pain, no vomiting, + diarrhea Genitourinary: Denies dysuria or urinary frequency Musculoskeletal: Denies back pain or muscle aches, BI hand edema Neurological: Denies headache, paraesthe
[2021-09-08] MEDS: oxyCODONE/ACETAMINOPHEN (*CRX) 5-325 MG TABLET 1 TABLET PO ×2 (17:44→21:44)
[2021-09-08] MEDS: HYDROmorphone HCL INJ (*CRX) 1 MG/ML SYR 0.5 MG IV PUSH ×2 (18:41→23:06)
[2021-09-08] MEDS: MELATONIN 3 MG TABLET PO (20:22)
[2021-09-08 21:08] VITALS: BP 144/88; PULSE 72; RESP 16; TEMP 36; O2SAT 99
[2021-09-08] MEDS: diphenhydrAMINE HCl CAP 25 MG CAPSULE 50 MG PO (23:05)
[2021-09-09] MEDS: oxyCODONE/ACETAMINOPHEN (*CRX) 5-325 MG TABLET 1 TABLET PO ×5 (02:01→22:13)
[2021-09-09] MEDS: HYDROmorphone HCL INJ (*CRX) 1 MG/ML SYR 0.5 MG IV PUSH ×5 (03:33→21:09)
[2021-09-09 06:00] VITALS: BP 135/62; PULSE 64; RESP 14; TEMP 36.5; O2SAT 100
[2021-09-09 06:42] LABS: Alanine Aminotransferase 23 U/L (4-50); Albumin Level 4.5 g/dL (3.5-5.1); Alkaline Phosphatase 65 U/L (38-126); Anion Gap 8 mmol/L (8-16); Aspartate Amino Transferase 25 U/L (17-59); Bilirubin,Total 0.6 mg/dL (0.2-1.3); Blood Urea Nitrogen 3 mg/dL (9-20); Calcium 9.7 mg/dL (8.4-10.2); Carbon Dioxide 32 mmol/L (22-30); Chloride 99 mmol/L (98-107); Estimated CRCL calculation 142 ml/min; Estimated Glomerular Filt Rate > 60; Glucose 108 mg/dL (65-110); Lipase 41 U/L (23-300); Potassium 3.8 mmol/L (3.4-5.0); Sodium 139 mmol/L (137-145)
[2021-09-09 06:50] LABS: Basophils Absolute Auto 0.1 K/mm3 (0.0-0.1); Basophils Percent Auto 1.6 % (0.2-1.2); Eosinophils Absolute Auto 0.4 K/mm3 (0-0.3); Eosinophils Percent Auto 7.2 % (0-4.4); Hematocrit 43.7 % (42.0-52.0); Hemoglobin 14.4 g/dL (14.0-18.0); Immature Granulocyte Absolute 0.02 K/mm3 (0.00-0.031); Immature Granulocyte Percent A 0.4 % (0-0.5); Lymphocytes Absolute Auto 2.35 K/mm3 (0.9-3.2); Lymphocytes Percent Auto 45.8 % (18.3-44.2); Mean Corpuscular Hemoglobin 29.3 pg (26-34); Mean Platelet Volume 10.6 fl (7.4-10.4); Monocytes Absolute Auto 0.6 K/mm3 (0.1-0.6); Monocytes Percent Auto 12.1 % (2.6-8.5); Neutrophils Absolute Auto 1.7 K/mm3 (1.3-6.7); Neutrophils Percent Auto 32.9 % (45.5-73.1); Platelet Count Result 337 k/mm3 (150-375); Red Blood Count 4.91 M/mm3 (4.6-6.20); Red Cell Distribution Width 12.5 % (11.5-14.5); White Blood Count 5.1 K/mm3 (4.5-10.0)
[2021-09-09] MEDS: ENOXAPARIN 40 MG/0.4 ML SYRINGE SUB-Q (09:05)
[2021-09-09] MEDS: SODIUM CHLORIDE 0.9% IV 1,000 ML 50 ML IV CONT (09:07)
--- NOTE | 2021-09-09 10:37 | PM.IMPN ---
Progress Note: A&P Assessment and Plan (1) Acute pancreatitis: Qualifiers: Acute pancreatitis complication: unspecified Pancreatitis type: unspecified pancreatitis type Qualified Code(s): K85.90 - Acute pancreatitis without necrosis or infection, unspecified Code(s): K85.90 - Acute pancreatitis without necrosis or infection, unspecified Status: Acute Assessment and Plan: Likely related to ongoing ETOH use. Continue conservative management with clear liquid diet, pain management and Zofran as needed for nausea vomiting. Advance diet as tolerated. Follow-up GI recommendations. (2) Left renal mass: Code(s): N28.89 - Other specified disorders of kidney and ureter Status: Acute Assessment and Plan: this left renal mass is known from his primary care provider. Follow-up with Interventional Radiology at [facility] for definitive treatment as an outpatient. (3) Nausea and vomiting in adult: Code(s): R11.2 - Nausea with vomiting, unspecified Status: Acute Assessment and Plan: Likely related to acute pancreatitis. We will manage him symptomatically with Zofran as needed. Seems to be resolved. (4) Alcoholic hepatitis: Code(s): K70.10 - Alcoholic hepatitis without ascites Status: Acute Assessment and Plan: Patient has previous history of alcoholic hepatitis but at this moment his LFTs are within normal limits. (5) Gastric outlet obstruction: Code(s): K31.1 - Adult hypertrophic pyloric stenosis Status: Acute Assessment and Plan: No evidence of obstruction on serial abdomen exam or imaging studies. (6) Gout: Code(s): M10.9 - Gout, unspecified Status: Acute Assessment and Plan: Resume home medication when oral intake is tolerated. (7) Alcoholism: Code(s): F10.20 - Alcohol dependence, uncomplicated Status: Acute Assessment and Plan: Counseled. (8) HTN (hypertension): Code(s): I10 - Essential (primary) hypertension Status: Acute Assessment and Plan: continue amlodipine 5 mg p.o. daily and metoprolol 50 mg p.o. b.i.d.. Additional Plan Patient presenting with epigastric pain and elevated lipase. Previous episode of pancreatitis in December 2020, related to EtOH use. Currently patient denies ETOH use. Unfortunately urine tox screen was not sent on admission. Patient was managed conservatively with NPO IV fluid and pain management and improved clinically. Patient originally tolerated clear liquid diet. repeat LFTs and lipase are normal. Continue conservative management with IV clear liquid diet will advance as tolerated, pain management and Zofran as needed for nausea and or vomiting. Patient has been counseled to homes of abstinence from alcohol . Subjective Date/time seen: 09/09/21 10:37 Interval history: Pt is a 36 yo male w/ hx of ETOH abuse and pancreatitis, admitted to the hospital for acute pancreatitis. Today he states he is feeling better but continues to have epigastric pain. He denies N/V. Had diarrhea yesterday after having ice cream and milk but this has resolved. C/o bilateral hand swelling right worse than left for the past 3 days. Now states R hand is uncomfortable when he makes a fist. Review of Systems Review of Systems: General: Denies fevers, chills Eyes: Denies vision changes or eye pain ENT: Denies nasal congestion or sore throat Respiratory: Denies cough or shortness of breath Cardiovascular: Denies chest pain, palpitations, or lower extremity edema Gastrointestinal: + abdominal pain, no vomiting, no diarrhea Genitourinary: Denies dysuria or urinary frequency Musculoskeletal: Denies back pain or muscle aches, +BI hand edema Neurological: Denies headache, paraesthesias, or motor weakness Integumentary: Denies rash or other skin lesions Exam Narrative: General: No acute distress, non t
[2021-09-09 14:00] VITALS: BP 138/95; PULSE 67; RESP 14; TEMP 36.1; O2SAT 99
[2021-09-09 20:46] VITALS: BP 147/85; PULSE 79; RESP 18; TEMP 36.1; O2SAT 100
[2021-09-09 20:59] VITALS: PULSE 67; O2SAT 99
[2021-09-09] MEDS: MELATONIN 3 MG TABLET PO (21:10)
[2021-09-09] MEDS: diphenhydrAMINE HCl CAP 25 MG CAPSULE 50 MG PO (21:10)
[2021-09-10] MEDS: HYDROmorphone HCL INJ (*CRX) 1 MG/ML SYR 0.5 MG IV PUSH ×4 (01:19→20:16)
[2021-09-10] MEDS: oxyCODONE/ACETAMINOPHEN (*CRX) 5-325 MG TABLET 1 TABLET PO ×4 (02:18→17:37)
[2021-09-10 05:16] VITALS: BP 127/86; PULSE 68; RESP 15; TEMP 36.1; O2SAT 99
[2021-09-10] MEDS: SODIUM CHLORIDE 0.9% IV 1,000 ML 50 ML IV CONT (05:45)
[2021-09-10 06:04] LABS: Basophils Absolute Auto 0.1 K/mm3 (0.0-0.1); Basophils Percent Auto 1.5 % (0.2-1.2); Eosinophils Absolute Auto 0.4 K/mm3 (0-0.3); Eosinophils Percent Auto 7.2 % (0-4.4); Hematocrit 40.8 % (42.0-52.0); Hemoglobin 13.7 g/dL (14.0-18.0); Immature Granulocyte Absolute 0.01 K/mm3 (0.00-0.031); Immature Granulocyte Percent A 0.2 % (0-0.5); Lymphocytes Absolute Auto 2.75 K/mm3 (0.9-3.2); Lymphocytes Percent Auto 52.2 % (18.3-44.2); Mean Corpuscular HGB Conc 33.6 g/dl (32-36); Mean Corpuscular Hemoglobin 29.7 pg (26-34); Mean Corpuscular Volume 88.3 fl (80-100); Mean Platelet Volume 10.6 fl (7.4-10.4); Monocytes Absolute Auto 0.5 K/mm3 (0.1-0.6); Monocytes Percent Auto 9.9 % (2.6-8.5); Neutrophils Absolute Auto 1.5 K/mm3 (1.3-6.7); Platelet Count Result 315 k/mm3 (150-375); Red Blood Count 4.62 M/mm3 (4.6-6.20); Red Cell Distribution Width 12.4 % (11.5-14.5); White Blood Count 5.3 K/mm3 (4.5-10.0)
[2021-09-10 06:17] LABS: Alanine Aminotransferase 26 U/L (4-50); Alkaline Phosphatase 67 U/L (38-126); Anion Gap 11 mmol/L (8-16); Aspartate Amino Transferase 28 U/L (17-59); Bilirubin,Total 0.7 mg/dL (0.2-1.3); Blood Urea Nitrogen 3 mg/dL (9-20); Calcium 9.7 mg/dL (8.4-10.2); Carbon Dioxide 27 mmol/L (22-30); Chloride 103 mmol/L (98-107); Estimated CRCL calculation 125 ml/min; Estimated Glomerular Filt Rate > 60; Glucose 99 mg/dL (65-110); Lipase 39 U/L (23-300); Potassium 3.7 mmol/L (3.4-5.0); Sodium 141 mmol/L (137-145)
[2021-09-10] MEDS: ENOXAPARIN 40 MG/0.4 ML SYRINGE SUB-Q (09:46)
[2021-09-10] MEDS: diphenhydrAMINE HCl CAP 25 MG CAPSULE 50 MG PO ×2 (12:14→17:37)
[2021-09-10 14:00] VITALS: BP 134/85; PULSE 71; RESP 16; TEMP 36.2; O2SAT 100
--- NOTE | 2021-09-10 14:05 | PM.IMPN ---
Progress Note: A&P Assessment and Plan (1) Acute pancreatitis: Qualifiers: Acute pancreatitis complication: unspecified Pancreatitis type: unspecified pancreatitis type Qualified Code(s): K85.90 - Acute pancreatitis without necrosis or infection, unspecified Code(s): K85.90 - Acute pancreatitis without necrosis or infection, unspecified Status: Acute Assessment and Plan: Likely related to ongoing ETOH use. Continue conservative management with clear liquid diet, pain management and Zofran as needed for nausea vomiting. Lipase normalized. Advance diet as tolerated. Follow-up GI recommendations. (2) Left renal mass: Code(s): N28.89 - Other specified disorders of kidney and ureter Status: Acute Assessment and Plan: this left renal mass is known from his primary care provider. Follow-up with Interventional Radiology at [facility] for definitive treatment as an outpatient. (3) Nausea and vomiting in adult: Code(s): R11.2 - Nausea with vomiting, unspecified Status: Acute Assessment and Plan: Likely related to acute pancreatitis. We will manage him symptomatically with Zofran as needed. Seems to be resolved. (4) Alcoholic hepatitis: Code(s): K70.10 - Alcoholic hepatitis without ascites Status: Acute Assessment and Plan: Patient has previous history of alcoholic hepatitis but at this moment his LFTs are within normal limits. (5) Gastric outlet obstruction: Code(s): K31.1 - Adult hypertrophic pyloric stenosis Status: Acute Assessment and Plan: No evidence of obstruction on serial abdomen exam or imaging studies. (6) Gout: Code(s): M10.9 - Gout, unspecified Status: Acute Assessment and Plan: -allopurinol restarted now that he is tolerating PO -R hand edema and mild pain, no erythema/warmth/or severe pain to suggest gout flare -venous doppler negative -improving -possibly related to IV that was there previously? -no signs of infection (7) Alcoholism: Code(s): F10.20 - Alcohol dependence, uncomplicated Status: Acute Assessment and Plan: Counseled. (8) HTN (hypertension): Code(s): I10 - Essential (primary) hypertension Status: Acute Assessment and Plan: continue amlodipine 5 mg p.o. daily and metoprolol 50 mg p.o. b.i.d.. Additional Plan Patient presenting with epigastric pain and elevated lipase. Previous episode of pancreatitis in December 2020, related to EtOH use. Currently patient denies ETOH use. Unfortunately urine tox screen was not sent on admission. Patient was managed conservatively with NPO IV fluid and pain management and improved clinically. Patient originally tolerated clear liquid diet. repeat LFTs and lipase are normal. Continue conservative management with IV clear liquid diet will advance as tolerated, pain management and Zofran as needed for nausea and or vomiting. Patient has been counseled to homes of abstinence from alcohol . Subjective Date/time seen: 09/10/21 14:05 Interval history: Pt is a 36 yo male w/ hx of ETOH abuse and pancreatitis, admitted to the hospital for acute pancreatitis. Today he states he is feeling better but continues to have epigastric pain. He denies N/V. Still having diarrhea after having ice cream and milk due to his lactose intolerance. Swelling to R hand is improving. Has pain still when making a fist. Reports hx of gout. Review of Systems Review of Systems: General: Denies fevers, chills Eyes: Denies vision changes or eye pain ENT: Denies nasal congestion or sore throat Respiratory: Denies cough or shortness of breath Cardiovascular: Denies chest pain, palpitations, or lower extremity edema Gastrointestinal: + abdominal pain, no vomiting, + diarrhea Genitourinary: Denies dysuria or urinary frequency Musculoskeletal: Denies back pain or muscle aches, +BI
[2021-09-10] MEDS: SIMETHICONE 125 MG CHEW TAB PO ×2 (17:37→20:15)
[2021-09-10] MEDS: allopurinoL 100 MG TABLET PO (17:37)
[2021-09-10 20:00] VITALS: PULSE 74; RESP 16; O2SAT 100
[2021-09-10 20:15] VITALS: PULSE 74
[2021-09-10] MEDS: METOPROLOL TARTRATE 50 MG TAB PO (20:15)
[2021-09-10] MEDS: MELATONIN 3 MG TABLET PO (20:15)
[2021-09-10 22:00] VITALS: BP 133/86; PULSE 57; RESP 21; TEMP 36.7; O2SAT 100
[2021-09-11] MEDS: SODIUM CHLORIDE 0.9% IV 1,000 ML 50 ML IV CONT (01:29)
[2021-09-11] MEDS: oxyCODONE/ACETAMINOPHEN (*CRX) 5-325 MG TABLET 1 TABLET PO ×3 (03:27→21:28)
[2021-09-11 05:46] LABS: Basophils Absolute Auto 0.1 K/mm3 (0.0-0.1); Basophils Percent Auto 1.3 % (0.2-1.2); Eosinophils Absolute Auto 0.4 K/mm3 (0-0.3); Eosinophils Percent Auto 7.2 % (0-4.4); Hemoglobin 13.6 g/dL (14.0-18.0); Immature Granulocyte Absolute 0.02 K/mm3 (0.00-0.031); Immature Granulocyte Percent A 0.4 % (0-0.5); Lymphocytes Absolute Auto 2.37 K/mm3 (0.9-3.2); Lymphocytes Percent Auto 42.6 % (18.3-44.2); Mean Corpuscular Hemoglobin 29.1 pg (26-34); Mean Corpuscular Volume 85.7 fl (80-100); Mean Platelet Volume 10.1 fl (7.4-10.4); Monocytes Absolute Auto 0.6 K/mm3 (0.1-0.6); Monocytes Percent Auto 10.4 % (2.6-8.5); Neutrophils Absolute Auto 2.1 K/mm3 (1.3-6.7); Neutrophils Percent Auto 38.1 % (45.5-73.1); Platelet Count Result 327 k/mm3 (150-375); Red Blood Count 4.67 M/mm3 (4.6-6.20); Red Cell Distribution Width 12.1 % (11.5-14.5); White Blood Count 5.6 K/mm3 (4.5-10.0)
[2021-09-11 06:00] VITALS: BP 133/69; PULSE 78; RESP 21; TEMP 36.6; O2SAT 100
[2021-09-11 06:01] LABS: Alanine Aminotransferase 26 U/L (4-50); Albumin Level 4.1 g/dL (3.5-5.1); Alkaline Phosphatase 69 U/L (38-126); Anion Gap 7 mmol/L (8-16); Aspartate Amino Transferase 25 U/L (17-59); Bilirubin,Total 0.6 mg/dL (0.2-1.3); Blood Urea Nitrogen 5 mg/dL (9-20); Calcium 9.7 mg/dL (8.4-10.2); Carbon Dioxide 28 mmol/L (22-30); Chloride 101 mmol/L (98-107); Estimated CRCL calculation 125 ml/min; Estimated Glomerular Filt Rate > 60; Glucose 103 mg/dL (65-110); Lipase 47 U/L (23-300); Potassium 3.6 mmol/L (3.4-5.0); Sodium 136 mmol/L (137-145)
[2021-09-11 09:24] VITALS: PULSE 82
[2021-09-11] MEDS: MULTIVITAMINS THERAPEUTIC TAB (*BKC) 1 TABLET PO (09:24)
[2021-09-11] MEDS: METOPROLOL TARTRATE 50 MG TAB PO ×2 (09:24→21:28)
[2021-09-11] MEDS: amLODIPine BESYLATE 5 MG TABLET PO (09:24)
[2021-09-11] MEDS: allopurinoL 100 MG TABLET PO ×2 (09:24→16:40)
[2021-09-11] MEDS: SIMETHICONE 125 MG CHEW TAB PO ×4 (09:24→21:27)
[2021-09-11] MEDS: FOLIC ACID 0.4 MG TABLET 0.8 MG PO (09:24)
[2021-09-11] MEDS: ENOXAPARIN 40 MG/0.4 ML SYRINGE SUB-Q (09:24)
[2021-09-11] MEDS: ATORVASTATIN 20 MG TABLET PO (11:28)
[2021-09-11] MEDS: FAMOTIDINE 20 MG TABLET PO (11:28)
--- NOTE | 2021-09-11 13:11 | PM.IMPN ---
Progress Note: A&P Assessment and Plan (1) Acute pancreatitis: Qualifiers: Acute pancreatitis complication: unspecified Pancreatitis type: unspecified pancreatitis type Qualified Code(s): K85.90 - Acute pancreatitis without necrosis or infection, unspecified Code(s): K85.90 - Acute pancreatitis without necrosis or infection, unspecified Status: Acute Assessment and Plan: Patient is a 36-year-old man with a history of pancreatitis in December of 2020, who presented to emergency room with continued epigastric abdominal pain for the last few days. The patient has not had a drink of alcohol since July 14, 2021. He states his symptoms began right after Thanksgiving dinner where he states he had a lot of turkey and chicken. His symptoms did seem similar to his pancreatitis attack in the past. His symptoms did not improve so he decided to come to the emergency room for further evaluation. Initial labs showed normal CBC with differential. Slight hyponatremia at 134. Normal renal function. Normal LFTs. Troponin negative x2. Lipase elevated at 522. Abdominal x-ray showed Acute on chronic pancreatitis. Development of pancreatic tail hypodense region, favor duct dilation or early pseudocyst over neoplasm. patient has required IV pain medication, slow advancement of his diet and is finally feeling better at this time. I will advance his diet to a low-fat for dinner tonight and if he tolerates this well we will discharge him tomorrow. His labs have been normal last few days so I will not recheck his labs in the morning unless he has significant changes to his symptoms continue monitoring. (2) Left renal mass: Code(s): N28.89 - Other specified disorders of kidney and ureter Status: Acute Assessment and Plan: CT Abd/ Pelvis showed Left 2.4 cm renal cell cancer. Size and location might be amenable to cryoablation. this left renal mass is known from his primary care provider. Follow-up with Interventional Radiology/Urology for definitive treatment as an outpatient. (3) Nausea and vomiting in adult: Code(s): R11.2 - Nausea with vomiting, unspecified Status: Acute Assessment and Plan: Likely related to acute pancreatitis. We will manage him symptomatically with Zofran as needed. Seems to be resolved. (4) Alcoholic hepatitis: Code(s): K70.10 - Alcoholic hepatitis without ascites Status: Acute Assessment and Plan: Patient has previous history of alcoholic hepatitis but at this moment his LFTs are within normal limits. Cholesterol panel was abnormal with elevated total cholesterol 220, elevated LDL 149, normal triglycerides. I will start him on a statin medication for his cholesterol levels to be better controlled. Will need to follow-up with primary care in 6 weeks for repeat cholesterol testing. (5) Gastric outlet obstruction: Code(s): K31.1 - Adult hypertrophic pyloric stenosis Status: Acute Assessment and Plan: No evidence of obstruction on serial abdomen exam or imaging studies. (6) Gout: Code(s): M10.9 - Gout, unspecified Status: Acute Assessment and Plan: -allopurinol restarted now that he is tolerating PO -R hand edema and mild pain, no erythema/warmth/or severe pain to suggest gout flare -venous doppler negative -improving -possibly related to IV that was there previously? -no signs of infection (7) Alcoholism: Code(s): F10.20 - Alcohol dependence, uncomplicated Status: Acute Assessment and Plan: Patient has quit alcohol starting July 14, 2021. He is already undergoing outpatient therapy 4 times per week. He does not have any interest in continuing drinking alcohol at this time. (8) HTN (hypertension): Code(s): I10 - Essential (primary) hypertension Status: Acute Assessment and Plan: Blood pressures been s
[2021-09-11 13:51] VITALS: BP 132/74; PULSE 71; RESP 18; TEMP 36.9; O2SAT 100
[2021-09-11 21:13] VITALS: BP 130/85; PULSE 67; RESP 18; TEMP 36.5; O2SAT 100
[2021-09-11] MEDS: MELATONIN 3 MG TABLET PO (21:27)
[2021-09-11 21:28] VITALS: PULSE 67
[2021-09-12 05:03] VITALS: BP 111/53; PULSE 75; RESP 16; TEMP 36.1; O2SAT 98
[2021-09-12] MEDS: SIMETHICONE 125 MG CHEW TAB PO ×2 (08:34→12:04)
[2021-09-12] MEDS: ATORVASTATIN 20 MG TABLET PO (08:34)
[2021-09-12] MEDS: MULTIVITAMINS THERAPEUTIC TAB (*BKC) 1 TABLET PO (08:34)
[2021-09-12] MEDS: allopurinoL 100 MG TABLET PO (08:34)
[2021-09-12] MEDS: FOLIC ACID 0.4 MG TABLET 0.8 MG PO (08:34)
[2021-09-12] MEDS: amLODIPine BESYLATE 5 MG TABLET PO (08:34)
[2021-09-12] MEDS: ENOXAPARIN 40 MG/0.4 ML SYRINGE SUB-Q (08:35)
[2021-09-12] MEDS: FAMOTIDINE 20 MG TABLET PO (08:38)
[2021-09-12 08:39] VITALS: PULSE 67
[2021-09-12] MEDS: oxyCODONE/ACETAMINOPHEN (*CRX) 5-325 MG TABLET 1 TABLET PO (08:39)
[2021-09-12] MEDS: METOPROLOL TARTRATE 50 MG TAB PO (08:39)
--- NOTE | 2021-09-12 08:43 | PCNWS ---
Weekly nutritional screen. Patient is tolerating current diet with adequate intake. No weight loss reported. No nutritional needs at this time.
--- NOTE | 2021-09-12 13:13 | PM.DS ---
DS: Admitting Diagnosis Discharge Date 09/12/21 Admitting Diagnosis abd pain DS: Discharge Diagnosis Discharge Diagnosis (1) Acute pancreatitis: Qualifiers: Acute pancreatitis complication: unspecified Pancreatitis type: unspecified pancreatitis type Qualified Code(s): K85.90 - Acute pancreatitis without necrosis or infection, unspecified Code(s): K85.90 - Acute pancreatitis without necrosis or infection, unspecified Status: Acute Assessment and Plan: Patient is a 36-year-old man with a history of pancreatitis in December of 2020 from alcohol abuse, who presented to emergency room with continued epigastric abdominal pain for the last few days. The patient reports not having a drink of alcohol since July 14, 2021. He states his symptoms began right after Thanksgiving dinner where he states he had a lot of turkey and chicken. His symptoms did seem similar to his pancreatitis attack in the past. His symptoms did not improve so he decided to come to the emergency room for further evaluation. Initial labs showed normal CBC with differential. Slight hyponatremia at 134. Normal renal function. Normal LFTs. Troponin negative x2. Lipase elevated at 522. Abdominal x-ray showed Acute on chronic pancreatitis. Development of pancreatic tail hypodense region, favor duct dilation or early pseudocyst over neoplasm. patient has required IV pain medication, slow advancement of his diet and is finally feeling better at this time. He is tolerating a low-fat for dinner and is not requiring any IV pain medications. His labs have been normal last few days with lipase and LFTs. He is stable at this time for discharge. continue low-fat diet, exercise, weight loss, abstain from alcohol use. Follow-up instructions given with PCP in given GIs information to follow-up in 1 week return to ER warnings given. Patient understands and agrees the plan all questions answered. (2) Left renal mass: Code(s): N28.89 - Other specified disorders of kidney and ureter Status: Acute Assessment and Plan: CT Abd/ Pelvis showed Left 2.4 cm renal cell cancer. Size and location might be amenable to cryoablation. this left renal mass is known from his primary care provider. Follow-up with Interventional Radiology/Urology for definitive treatment as an outpatient. (3) Nausea and vomiting in adult: Code(s): R11.2 - Nausea with vomiting, unspecified Status: Acute Assessment and Plan: Likely related to acute pancreatitis. Resolved. (4) Alcoholic hepatitis: Code(s): K70.10 - Alcoholic hepatitis without ascites Status: Acute Assessment and Plan: Patient has previous history of alcoholic hepatitis but at this moment his LFTs are within normal limits. Cholesterol panel was abnormal with elevated total cholesterol 220, elevated LDL 149, normal triglycerides. I will start him on a statin medication for his cholesterol levels to be better controlled. Will need to follow-up with primary care in 6 weeks for repeat cholesterol testing. (5) Gastric outlet obstruction: Code(s): K31.1 - Adult hypertrophic pyloric stenosis Status: Acute Assessment and Plan: No evidence of obstruction on serial abdomen exam or imaging studies. (6) Gout: Code(s): M10.9 - Gout, unspecified Status: Acute Assessment and Plan: -allopurinol restarted now that he is tolerating PO -R hand edema and mild pain, no erythema/warmth/or severe pain to suggest gout flare -venous doppler negative -improving -possibly related to IV that was there previously? -no signs of infection (7) Alcoholism: Code(s): F10.20 - Alcohol dependence, uncomplicated Status: Acute Assessment and Plan: Patient has quit alcohol starting July 14, 2021. He is already undergoing outpatient therapy 4 times per week. He does not hav
== END 2021-09-12 15:08 | disposition home or self-care (01) | DRG 282 ==
LOC: ANHED 09-05 04:30 → ANH3MED 09-05 06:03
PROVIDERS: Emergency Medicine; Internal Medicine; Internal Medicine Gastroenterology; Physician Assistant; Admitting Provider Internal Medicine; Emergency Provider Emergency Medicine; PCP Family Medicine; Visit Provider Physician Assistant
DX: K85.90 Acute pancreatitis without necrosis or infection, unspecified (principal); K86.1 Other chronic pancreatitis; A04.8 Other specified bacterial intestinal infections; K31.1 Adult hypertrophic pyloric stenosis; C64.2 Malignant neoplasm of left kidney, except renal pelvis; K70.10 Alcoholic hepatitis without ascites; I10 Essential (primary) hypertension; M10.9 Gout, unspecified; E78.00 Pure hypercholesterolemia, unspecified; F10.21 Alcohol dependence, in remission; Z79.899 Other long term (current) drug therapy
CPT/HCPCS: 36415; 71046; 73100; 74177; 74183; 76376; 80053; 80061; 83690; 84484; 85025; 85027; 85610; 85730; 93005; 93970; 96361; 96374; 96375; 96376; 99285; A9270; A9577; G0378; G0379; J1170; J1650; J2405; J7030; Q9967

== ENCOUNTER 2021-12-29 10:13 | Inpatient (IN) | payer SELFPAY ==
[2021-12-29] VITALS (19 sets, daily range): BP systolic 153–202; BP diastolic 72–102; PULSE 85–117; RESP 16–27; TEMP 36.4–37; O2SAT 95–100; BMI 38.6
--- NOTE | ~2021-12-29 | XR_ITS ---
EXAMINATION: XR chest 1V portable DATE: 12/29/2021 11:12 INDICATION: Centralized chest pain TECHNIQUE: frontal view of the chest was obtained. COMPARISON: Chest radiograph dated 09/04/2021 FINDINGS: The lungs remain clear with no focal airspace opacities, pulmonary edema, pleural effusion or pneumot horax. The cardiomediastinal silhouette is normal. Thoracic spondylosis. IMPRESSION: 1. No acute cardiopulmonary disease. Reviewed, dictated and finalized at location A.
--- NOTE | ~2021-12-29 | CT_ITS ---
EXAMINATION: CTA chest PE abdomen pel DATE: 12/29/2021 13:00 INDICATION: Chest and abdominal pain TECHNIQUE: Computed tomography (CT) pulmonary angiogram of the chest was performed with 100 mL Omnipa que-350 intravenous contrast. Additional 3D reconstructions utilizing coronal maximum intensity proje ction (MIP) were performed. CT of the abdomen and pelvis was performed with intravenous contrast util izing the same contrast bolus following a short delay. Automated exposure control and iterative recon struction technique were employed. The dose-length product was 1173.29 mGy-cm. COMPARISON: CT abdomen pelvis dated 09/05/2021 FINDINGS: Chest: Good contrast opacification of the pulmonary arteries. There is mild streak artifact from dense contr ast in the superior vena cava and right atrium. Mild scattered respiratory motion artifact most promi nent in the left lower lung zones where it decreases sensitivity in some of the smaller subsegmental pulmonary arteries. No definitive pulmonary embolism. Linear and groundglass opacities in the left lo wer lobe which could represent atelectasis and/or pneumonia. Right lung is clear. No pleural effusion or pneumothorax. Heart size is normal. No pericardial effusion. Thoracic aorta is normal in caliber with no dissection. No pathologically enlarged thoracic lymphadenopathy. Old healed sternal fracture. Abdomen/pelvis: Diffuse hepatic steatosis. Diffuse peripancreatic stranding consistent with acute interstitial pancre atitis. Tiny dystrophic calcification at the head of the pancreas likely sequela of prior pancreatiti s. No evident associated necrosis or discrete peripancreatic fluid collections. Gallbladder, spleen, pancreas and right kidney are normal. Unchanged 2.4 cm enhancing left renal mass consistent with lilian l cell carcinoma. Small wide mouthed fat-containing umbilical hernia. There are few scattered colonic diverticula without adjacent inflammatory change to suggest diverticulitis. Small bowel and appendix are normal. Bladder is normal. No free intraperitoneal gas or fluid. No pathologically enlarged abdo domitila or pelvic lymphadenopathy. Small bone island at the left femoral head. IMPRESSION: 1. Acute interstitial pancreatitis. 2. 2.4 cm enhancing left renal mass consistent with renal cell carcinoma. 3. No pulmonary embolism. 4. Mild opacities in the left lower lobe which could represent atelectasis and/or pneumonia. Reviewed, dictated and finalized at location A. IMPRESSION: 1. Acute interstitial pancreatitis. 2. 2.4 cm enhancing left renal mass consistent with renal cell carcinoma. 3. No pulmonary embolism. 4. Mild opacities in the left lower lobe which could represent atelectasis and/ or pneumonia.
--- NOTE | 2021-12-29 10:26 | ECG_ITS ---
Measurements Intervals [place] Rate: 108 P: 74 WI: 116 QRS: 47 QRSD: 97 T: -1 QT: 325 QTc: 437 Interpretive Statements SINUS TACHYCARDIA NONSPECIFIC T-WAVE ABNORMALITY ABNORMAL RHYTHM ECG COMPARED TO ECG 09/04/2021 18:23:55 SINUS TACHYCARDIA NOW PRESENT Electronically Signed On 12-29-2021 13:21:33 CDT by Baldomero Martinez M.D.
--- NOTE | 2021-12-29 10:40 | ED.CHESTPAIN ---
HPI - Chest Pain General Chief Complaint: Chest Pain Stated Complaint: back pain, chest pain Time Seen by Provider: 12/29/21 10:18 Source: patient Mode of arrival: ambulatory Limitations: no limitations History of Present Illness HPI narrative: 36-year-old male presents today with complaints of upper back pain for 3 days and abdominal pain starting 30 minutes prior to arrival with intermittent chest pain. Chest pain noticed with inspiration. 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 Pain worse with certain movements. Patient has tried Aleve at home without relief. Patient with history of hypertension, acute hepatitis, pancreatitis, alcoholism, gastric obstruction. Patient states he only drinks maybe twice a week at this time. Abdominal pain rated 10 out of a 10. Patient states he has not been taking his medications due to losing insurance and not being able to afford them. Patient is supposed to be taking allopurinol 100 mg twice daily, amlodipine 5 mg daily, atorvastatin 20 mg daily, famotidine 20 mg daily, folic acid daily, metoprolol 50 mg p.o. twice daily. Related Data Home Medications Medication Instructions Recorded Confirmed Adults Multivitamin 1 tablet PO DAILY 09/05/21 09/05/21 folic acid 800 mcg PO DAILY 09/05/21 09/05/21 Allergies Allergy/AdvReac Type Severity Reaction Status Date / Time codeine Allergy Mild Hives / Verified 09/05/21 06:27 Red Face morphine Allergy Mild Itching Verified 09/05/21 06:27 Review of Systems Review of Systems: CONSTITUTIONAL: Denies fever, chills, or sweats. EYES: Denies visual changes, redness, or discharge. ENT: Denies rhinorrhea, congestion, sore throat, or otalgia. CARDIOVASCULAR: Intermittent chest pain worse with inspiration and shortness of breath. Denies palpitations, or edema. RESPIRATORY: Denies cough or dyspnea. GASTROINTESTINAL: Abdominal pain. Denies nausea, vomiting, or diarrhea. GENITOURINARY: Denies dysuria or hematuria. SKIN: Denies rash or itching. MUSCULOSKELETAL: Upper back pain. Denies joint pain, or myalgia. NEUROLOGIC: Denies headache, numbness, dizziness, or weakness. PSYCHIATRIC: Denies anxiety or depression. 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 HEAD: Normocephalic, atraumatic. EYES: PERRLA and EOMI. ENT: Nares clear, no rhinorrhea or epistaxis. Mucous membranes moist. Oropharynx without tonsillar hypertrophy exudate or other lesions. Bilateral TMs pearly foster nonbulging NECK: Supple. No adenopathy or masses. No carotid bruits or JVD CHEST: Clear to auscultation. No respiratory distress. No wheezes rales or rhonchi HEART: Regular rate and rhythm. No murmur heard. Normal peripheral pulses. ABDOMEN: Distended and tender with palpation with normal active bowel sounds. EXTREMITIES: Normal range of motion. No edema. SKIN: Warm, dry, no rash. NEUR
[2021-12-29 10:46] LABS: Basophils Absolute Auto 0.1 K/mm3 (0.0-0.1); Basophils Percent Auto 0.8 % (0.2-1.2); Eosinophils Absolute Auto 0.1 K/mm3 (0-0.3); Eosinophils Percent Auto 0.9 % (0-4.4); Hematocrit 42.1 % (42.0-52.0); Hemoglobin 14.4 g/dL (14.0-18.0); Immature Granulocyte Absolute 0.04 K/mm3 (0.00-0.031); Immature Granulocyte Percent A 0.4 % (0-0.5); Immature Platelet Fraction Pct 6.9 % (0.9-11.2); Lymphocytes Absolute Auto 1.47 K/mm3 (0.9-3.2); Lymphocytes Percent Auto 16.1 % (18.3-44.2); Mean Corpuscular HGB Conc 34.2 g/dl (32-36); Mean Corpuscular Hemoglobin 29.3 pg (26-34); Mean Corpuscular Volume 85.7 fl (80-100); Mean Platelet Volume 10.9 fl (7.4-10.4); Monocytes Absolute Auto 0.6 K/mm3 (0.1-0.6); Neutrophils Absolute Auto 6.8 K/mm3 (1.3-6.7); Neutrophils Percent Auto 74.8 % (45.5-73.1); Platelet Count Result 131 k/mm3 (150-375); Red Blood Count 4.91 M/mm3 (4.6-6.20); Red Cell Distribution Width 13.9 % (11.5-14.5); White Blood Count 9.1 K/mm3 (4.5-10.0)
[2021-12-29 11:03] LABS: Alanine Aminotransferase 90 U/L (4-50); Albumin Level 4.6 g/dL (3.5-5.1); Alkaline Phosphatase 106 U/L (38-126); Anion Gap 11 mmol/L (8-16); Aspartate Amino Transferase 142 U/L (17-59); Bilirubin,Total 1.3 mg/dL (0.2-1.3); Blood Urea Nitrogen 12 mg/dL (9-20); Calcium 8.8 mg/dL (8.4-10.2); Carbon Dioxide 23 mmol/L (22-30); Chloride 98 mmol/L (98-107); Estimated CRCL calculation 94 ml/min; Estimated Glomerular Filt Rate > 60; Glucose 131 mg/dL (65-110); Potassium 3.4 mmol/L (3.4-5.0); Sodium 132 mmol/L (137-145)
[2021-12-29 11:04] LABS: Partial Thromboplastin Time 25.2 SECONDS (22.3-36.8)
[2021-12-29 11:05] LABS: Troponin I 0.016 ng/mL (0.000-0.034)
[2021-12-29 11:10] LABS: Lipase 3563 U/L (23-300)
[2021-12-29 11:15] LABS: NT Pro B Type Natriuretic Pept 21 pg/mL (5-100)
[2021-12-29] MEDS: fentaNYL CITRATE INJ (*CRX) 100 MCG/2 ML VIAL 50 MCG IV PUSH (11:26)
[2021-12-29] MEDS: SODIUM CHLORIDE 0.9% IV 1,000 ML 999 ML IV CONT (11:27)
[2021-12-29] MEDS: THIAMINE HCL 200 MG/2 ML VIAL 100 MG IV PUSH (11:29)
[2021-12-29 11:30] LABS: D Dimer 1.05 ug/mL (<0.48)
[2021-12-29 13:35] LABS: Troponin I 0.015 ng/mL (0.000-0.034)
--- NOTE | 2021-12-29 13:52 | PM.IMHP ---
H&P: HPI History of Present Illness Date/Time: 12/29/21 13:52 this is a 36-year-old male patient to has had at least 2 episodes of pancreatitis last year July and September. The patient has a history of alcoholism. The patient stated that he did not drink until just recently he only had a couple drinks. And this was approximately 1 week ago. The patient is starting a new job and has not had any insurance and has not been taking any of his cholesterol blood pressure medicines. The patient has been complaining of upper back pain for 3 days with abdominal pain starting 30 minutes prior to arrival with intermittent chest pain. The chest pain is worse with inspiration. 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 It is worse with certain movements. He tried to leave at home without any relief. The patient admitted to only drinking twice a week. He was rating his pain at 10 out of a 10. The patient was given fentanyl in the emergency room but stated that did not help. Platelet count is 131. D-dimer is 1.05. Sodium 132. Glucose 131. AST is 140 to, and ALT is 90. Lipase is 3563. The patient was started on IV fluids, given thiamin, fentanyl, and IV Lopressor. The patient is being admitted to inpatient services on the date of service of 12/29/2021. Chief Complaint: Abdominal pain Review of Systems Review of Systems: All systems reviewed & are unremarkable except as noted in HPI and below Constitutional: Constitutional: Reports as per HPI and Reports no additional constitutional complaints Eyes: Eyes: Reports as per HPI and Reports no additional eye complaints ENT: Reports system reviewed and no additional complaints, except as documented and Reports Normal hearing present Cardiovascular: Cardiovascular: Reports no additional cardiovascular complaints Respiratory: Respiratory: Reports no additional respiratory complaints and Reports no additional respiratory complaints Gastrointestinal: Gastrointestinal: Reports as per HPI and Reports no additional gastrointestinal complaints Musculoskeletal: Musculoskeletal: Reports no additional musculoskeletal complaints Integumentary/Breasts: Skin/Breast: Reports system reviewed and no additional complaints, except as docu and Reports as per HPI Neurologic: Reports system reviewed and no additional complaints, except as documented, Reports as per HPI and Reports Normal hearing present Psychiatric: Psychiatric: Reports no additional psychiatric complaints and Reports as per HPI Endocrine: Endocrine: Reports no additional endocrine complaints Hematologic/Lymphatic: Hematologic/Lymphatic: Reports no additional hematologic/lymphatic complaints Allergic/Immunologic: Allergic/Immunologic: Reports no additional allergic/immunologic complaints [facility] Past Medical History Medical History (Updated 12/29/21 @ 16:53 by Siomara Bowie NP) Alcohol abuse Gout HTN (hypertension) Hyperlipidemia Hyperlipidemia due to dietary fat intake Pancreatitis Surgical History Surgical History No history of previous surgery Family History Family History Father Cancer Hypertension Mother Hypertension Social History Social History (Updated 12/29/21 @ 16:37 by Siomara Bowie NP) Social History: /seperated from . He just started working in a Warehouse. He lives with his dad and has 0 children. Patient admits to drinking at least twice a week. The patient used to drink more heavily. He denies any tobacco or marijuana. No durable power deputy prosecuting attorney for healthcare. Code status full code. Smoking status: Never smoker Second hand tobacco smoke exposure: No Alcohol intake: former Drinks per week: 12 Alcohol use details: a pint a week Substance use: never Substance use type: does not use Other substance usage d
[2021-12-29] MEDS: HYDROmorphone HCL INJ (*CRX) 1 MG/ML SYR IV PUSH ×3 (14:45→21:07)
[2021-12-29] MEDS: diphenhydrAMINE HCl INJ 50 MG/ML VIAL 25 MG IV PUSH (14:45)
[2021-12-29] MEDS: SODIUM CHLORIDE 0.9% IV 1,000 ML 125 ML IV CONT ×2 (14:46→21:05)
--- NOTE | 2021-12-29 14:51 | PC.NURSE ---
Patient ambulatory to the restroom without difficulty.
[2021-12-29] MEDS: METOPROLOL TARTRATE INJ 5 MG/5 ML VIAL IV PUSH ×2 (15:23→21:06)
--- NOTE | 2021-12-29 15:45 | PC.NURSE ---
Patient care report called to PIA Bhakta on .
--- NOTE | 2021-12-29 16:18 | ADMGEN ---
This patient, Baldomero Gallego, was admitted to Medical Room 246-01. Patient/family oriented to hospital policies and general routines including ID bracelet, bed and alarms, visiting hours, pain management, procedures, bathroom and other care routines, personal items, smoking policy, room service/diet, and visiting hours. Information on how to activate the Rapid Response Team has been discussed. Patient/Family are encouraged to report perceived risks to care and to ask questions if they do not understand what they are told or what they should do.
[2021-12-29] MEDS: FAMOTIDINE 20 MG/2 ML VIAL IV PUSH (21:04)
[2021-12-30] VITALS (14 sets, daily range): BP systolic 151–198; BP diastolic 84–110; PULSE 83–130; RESP 14–20; TEMP 36.4–37.1; O2SAT 96–99
[2021-12-30] MEDS: HYDROmorphone HCL INJ (*CRX) 1 MG/ML SYR IV PUSH ×7 (00:20→21:06)
[2021-12-30] MEDS: LORazepam INJ (*CRX) 2 MG/ML VIAL 0.5 MG IV PUSH ×2 (02:34→13:42)
[2021-12-30] MEDS: SODIUM CHLORIDE 0.9% IV 1,000 ML 125 ML IV CONT ×3 (04:07→21:02)
[2021-12-30 06:10] LABS: Basophils Percent Auto 0.3 % (0.2-1.2); Eosinophils Absolute Auto 0.1 K/mm3 (0-0.3); Eosinophils Percent Auto 1.3 % (0-4.4); Hematocrit 38.5 % (42.0-52.0); Hemoglobin 13.2 g/dL (14.0-18.0); Immature Granulocyte Absolute 0.03 K/mm3 (0.00-0.031); Immature Granulocyte Percent A 0.5 % (0-0.5); Immature Platelet Fraction Pct 7.8 % (0.9-11.2); Lymphocytes Percent Auto 12.7 % (18.3-44.2); Mean Corpuscular HGB Conc 34.3 g/dl (32-36); Mean Corpuscular Hemoglobin 29.5 pg (26-34); Mean Corpuscular Volume 85.9 fl (80-100); Mean Platelet Volume 10.9 fl (7.4-10.4); Monocytes Absolute Auto 0.4 K/mm3 (0.1-0.6); Monocytes Percent Auto 6.2 % (2.6-8.5); Platelet Count Result 99 k/mm3 (150-375); Red Blood Count 4.48 M/mm3 (4.6-6.20); Red Cell Distribution Width 13.7 % (11.5-14.5); White Blood Count 6.3 K/mm3 (4.5-10.0)
[2021-12-30 06:23] LABS: Anion Gap 10 mmol/L (8-16); Blood Urea Nitrogen 6 mg/dL (9-20); Calcium 8.5 mg/dL (8.4-10.2); Carbon Dioxide 23 mmol/L (22-30); Chloride 101 mmol/L (98-107); Cholesterol 181 mg/dL (0-200); Estimated CRCL calculation 130 ml/min; Estimated Glomerular Filt Rate > 60; Glucose 128 mg/dL (65-110); HDL Direct 57 mg/dL; Lipase 1468 U/L (23-300); Potassium 3.2 mmol/L (3.4-5.0); Sodium 134 mmol/L (137-145); Triglycerides 138 mg/dL (<150)
[2021-12-30] MEDS: METOPROLOL TARTRATE INJ 5 MG/5 ML VIAL IV PUSH ×3 (06:27→21:12)
[2021-12-30 06:31] LABS: LDL Cholesterol Direct 92 mg/dL
[2021-12-30] MEDS: hydrALAZINE HCL 20 MG/ML VIAL 10 MG IV PUSH ×2 (07:05→10:35)
[2021-12-30 07:20] LABS: Add Urine Microscopic? YES; Appearance Urine Cloudy (Clear); Bilirubin Urine Negative (Negative); Blood Urine Negative (Negative); Color Urine Amber (Yellow); Glucose Urine UA Negative (Negative); Ketones Urine 2+ mg/dL (Negative); Leukocyte Esterase Ur Negative LEU/UL (Negative); Mucus Urine Heavy /lpf; Nitrate Urine Negative (Negative); Protein Urine 2+ mg/dL (Negative); Squamous Epithelial Cell Urine Rare /hpf (Few); WBC Urine 0-3 /hpf
[2021-12-30 07:58] LABS: Specific Grav Ur 1.033 (1.001-1.035)
[2021-12-30] MEDS: FAMOTIDINE 20 MG/2 ML VIAL IV PUSH ×2 (09:07→21:02)
[2021-12-30] MEDS: FOLIC ACID 1 MG/0.2 ML INJ IV PUSH (09:07)
[2021-12-30] MEDS: THIAMINE HCL 200 MG/2 ML VIAL 100 MG IV PUSH (09:08)
--- NOTE | 2021-12-30 10:00 | P.PNIM_ITS ---
Progress Note: A&P Assessment and Plan (1) Acute pancreatitis: Qualifiers: Acute pancreatitis complication: unspecified Pancreatitis type: other Qualified Code(s): K85.80 - Other acute pancreatitis without necrosis or infection Code(s): K85.90 - Acute pancreatitis without necrosis or infection, unspecified Status: Acute Assessment and Plan: * Presented with back pain and abdominal pain * Lipase was 3563 upon admission, today 1468 * NPO at this time * IV fluids * Probably from ETOH abuse * Liver enzymes elevated at 142/90 * Continue diladid for pain control * Trend lipase * ETOH cessation (2) Abnormal liver function: Code(s): R94.5 - Abnormal results of liver function studies Status: Acute Assessment and Plan: * Liver enzymes elevated * Probably related to ETOH abuse * hold statin * Trend liver enzymes * Hep panel negative as of 11/28/19, will repeat in the am * Consider ultrasound, last ultrasound showed hepatic stenosis 11/13/20 (3) Left renal mass: Code(s): N28.89 - Other specified disorders of kidney and ureter Status: Acute Assessment and Plan: * The patient is aware that he has a cystic lesion * no change in the size since his last CT scan * Continue outpatient follow up (4) Alcoholism: Code(s): F10.20 - Alcohol dependence, uncomplicated Status: Acute Assessment and Plan: * Folic acid IV and thiamin IV. * P.r.n. Ativan * Continues to drink * Should consider some outpatient therapy for alcoholism (5) Gout: Code(s): M10.9 - Gout, unspecified Status: Acute Assessment and Plan: * No flare-up at this time (6) HTN (hypertension): Code(s): I10 - Essential (primary) hypertension Status: Chronic Assessment and Plan: * BP is high at 172/100 * hydralazine with parameters ordered, and metoprolol also on board * Noncompliant with medications * Continue to trend BP * adjust therapy as indicated (7) Hyperlipidemia: Code(s): E78.5 - Hyperlipidemia, unspecified Status: Chronic Assessment and Plan: * Lipid profile is within normal limits * Hold statins for now due to his elevated liver enzymes (8) Angina at rest: Code(s): I20.8 - Other forms of angina pectoris Status: Acute Assessment and Plan: * Trops negative 0.016, 0.015 * EKG shows ST * Probably related to pancreatitis/GERD/Hypertension * ECHO ordered and pending Time Spent With Patient Time with patient: Greater than 35 minutes Subjective Date/time seen: 12/30/21 1000 Interval history: Date/Time: 12/29/21 13:52 This is a 36-year-old male patient to has had at least 2 episodes of pancreatitis last year July and September. The patient has a history of alcoholism. The patient stated that he did not drink until just recently he only had a couple drinks. And this was approximately 1 week ago. The patient is starting a new job and has not had any insurance and has not been taking any of his cholesterol blood pressure medicines. The patient has been complaining of upper back pain for 3 days with abdominal pain starting 30 minutes prior to arrival with intermittent chest pain. The chest pain is worse with inspiration. 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 It is worse
--- NOTE | 2021-12-30 10:00 | PM.IMPN ---
Progress Note: A&P Assessment and Plan (1) Acute pancreatitis: Qualifiers: Acute pancreatitis complication: unspecified Pancreatitis type: other Qualified Code(s): K85.80 - Other acute pancreatitis without necrosis or infection Code(s): K85.90 - Acute pancreatitis without necrosis or infection, unspecified Status: Acute Assessment and Plan: Presented with back pain and abdominal pain Lipase was 3563 upon admission, today 1468 NPO at this time IV fluids Probably from ETOH abuse Liver enzymes elevated at 142/90 Continue diladid for pain control Trend lipase ETOH cessation (2) Abnormal liver function: Code(s): R94.5 - Abnormal results of liver function studies Status: Acute Assessment and Plan: Liver enzymes elevated Probably related to ETOH abuse hold statin Trend liver enzymes Hep panel negative as of 11/28/19, will repeat in the am Consider ultrasound, last ultrasound showed hepatic stenosis 11/13/20 (3) Left renal mass: Code(s): N28.89 - Other specified disorders of kidney and ureter Status: Acute Assessment and Plan: The patient is aware that he has a cystic lesion no change in the size since his last CT scan Continue outpatient follow up (4) Alcoholism: Code(s): F10.20 - Alcohol dependence, uncomplicated Status: Acute Assessment and Plan: Folic acid IV and thiamin IV. P.r.n. Ativan Continues to drink Should consider some outpatient therapy for alcoholism (5) Gout: Code(s): M10.9 - Gout, unspecified Status: Acute Assessment and Plan: No flare-up at this time (6) HTN (hypertension): Code(s): I10 - Essential (primary) hypertension Status: Chronic Assessment and Plan: BP is high at 172/100 hydralazine with parameters ordered, and metoprolol also on board Noncompliant with medications Continue to trend BP adjust therapy as indicated (7) Hyperlipidemia: Code(s): E78.5 - Hyperlipidemia, unspecified Status: Chronic Assessment and Plan: Lipid profile is within normal limits Hold statins for now due to his elevated liver enzymes (8) Angina at rest: Code(s): I20.8 - Other forms of angina pectoris Status: Acute Assessment and Plan: Trops negative 0.016, 0.[address] Probably related to pancreatitis/GERD/Hypertension ECHO ordered and pending Time Spent With Patient Time with patient: Greater than 35 minutes Subjective Date/time seen: 12/30/21 1000 Interval history: Date/Time: 12/29/21 13:52 This is a 36-year-old male patient to has had at least 2 episodes of pancreatitis last year July and September. The patient has a history of alcoholism. The patient stated that he did not drink until just recently he only had a couple drinks. And this was approximately 1 week ago. The patient is starting a new job and has not had any insurance and has not been taking any of his cholesterol blood pressure medicines. The patient has been complaining of upper back pain for 3 days with abdominal pain starting 30 minutes prior to arrival with intermittent chest pain. The chest pain is worse with inspiration. 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 It is worse with certain movements. He tried to leave at home without any relief. The patient admitted to only drinking twice a week. He was rating his pain at 10 out of a 10. The patient was given fentanyl in the emergency room but stated that did not help. Platelet count is 131. D-dimer is 1.05. Sodium 132. Glucose 131. AST is 140 to, and ALT is 90. Lipase is 3563. The patient was started on IV fluids, given thiamin, fentanyl, and IV Lopressor. The patient is being admitted to inpatient services on the date of service of 12/29/2021. Date/Time 12/30/21 10
[2021-12-31] VITALS (13 sets, daily range): BP systolic 145–149; BP diastolic 80–101; PULSE 80–114; RESP 16–20; TEMP 35.8–36.9; O2SAT 96–97
--- NOTE | 2021-12-31 | ECHO_ITS ---
Patient Info Name: Baldomero Gallego Age: 36 years : 1985 Gender: Male Ht: 70 in Wt: 200 lbs BSA: 2.14 m2 HR: 80 bpm BP: 145 / 80 mmHg Heart Rhythm: Sinus Rhythm Technical Quality: Fair Exam Date: 12/31/2021 8:46 AM Exam Location: [facility] Patient Status: Inpatient Admit Date: 12/29/2021 Staff Ordering Physician: Siomara Bowie NP Head Of It: Joanne Melgar RDCS Attending Provider: Rodolfo White MD Referring Physician: Azeb PARRISH; Exam Type: CA echo doppler color flow Study Info Indications - MURMUR/UNCONTROLLED HTN Complete two-dimensional, color flow and Doppler transthoracic echocardiogram is performed with contrast to opacify the left ventricle and to improve the deliniation of the left ventricle endocardial borders. Contrast/Agitated Saline Contrast/Ag. Saline: Definity Amount: 2.00 ml Administered By: Joanne Melgar RDCS Existing IV Access: Yes IV Access Condition: patent with no signs of infiltration Summary 1. Left ventricular chamber dimension is normal. 2. Left ventricular systolic function is normal, estimated at 65-70%. 3. There is mildly increased left ventricular wall thickness. 4. The left ventricular diastolic function is normal. 5. Right atrial chamber dimension is mildly enlarged. 6. There is trace tricuspid valve regurgitation. 7. No pulmonary hypertension, estimated pulmonary arterial systolic pressure is 25 mmHg. Left Ventricle Left ventricular chamber dimension is normal. Left ventricular systolic function is normal, estimated at 65-70%. There is mildly increased left ventricular wall thickness. The left ventricular diastolic function is normal. Right Ventricle Right ventricular chamber dimension is normal. Right ventricular systolic function is normal. Left Atria Left atrial chamber dimension is normal. Right Atria Right atrial chamber dimension is mildly enlarged. Aortic Valve The aortic valve is probable trileaflet. There is no aortic valve stenosis. There is no aortic valve regurgitation. Pulmonic Valve The pulmonic valve is not well visualized. Mitral Valve The mitral valve has thickened leaflets. There is trace mitral valve regurgitation. The mitral valve annulus is mildly calcified. Tricuspid Valve The tricuspid valve leaflets are normal. There is trace tricuspid valve regurgitation. No pulmonary hypertension, estimated pulmonary arterial systolic pressure is 25 mmHg. Pericardium/Pleural The pericardium appears normal. There is trivial pericardial effusion. Inferior Vena Cava Normal inferior vena cava with >50% collapse upon inspiration consistent with normal right atrial pressure, 5 mmHg. Aorta The aortic root size at the sinus of Valsalva is normal. Left Ventricular Outflow Tract Name Value Normal LVOT 2D LVOT Diameter 2.0 cm LVOT Doppler LVOT Peak Gradient 4 mmHg LVOT Mean Gradient 2 mmHg LVOT VTI 18 cm LVOT VTI/AV VTI Ratio
[2021-12-31] MEDS: HYDROmorphone HCL INJ (*CRX) 1 MG/ML SYR IV PUSH ×8 (00:02→21:23)
[2021-12-31] MEDS: LORazepam INJ (*CRX) 2 MG/ML VIAL 0.5 MG IV PUSH ×3 (00:43→15:10)
[2021-12-31] MEDS: SODIUM CHLORIDE 0.9% IV 1,000 ML 125 ML IV CONT ×3 (05:05→21:22)
[2021-12-31] MEDS: METOPROLOL TARTRATE INJ 5 MG/5 ML VIAL IV PUSH ×3 (06:14→18:36)
[2021-12-31 06:15] LABS: Basophils Percent Auto 0.5 % (0.2-1.2); Eosinophils Absolute Auto 0.3 K/mm3 (0-0.3); Eosinophils Percent Auto 4.1 % (0-4.4); Hematocrit 38.1 % (42.0-52.0); Hemoglobin 12.9 g/dL (14.0-18.0); Immature Granulocyte Absolute 0.03 K/mm3 (0.00-0.031); Immature Granulocyte Percent A 0.5 % (0-0.5); Immature Platelet Fraction Pct 7.5 % (0.9-11.2); Lymphocytes Absolute Auto 1.33 K/mm3 (0.9-3.2); Lymphocytes Percent Auto 20.2 % (18.3-44.2); Mean Corpuscular HGB Conc 33.9 g/dl (32-36); Mean Corpuscular Hemoglobin 28.9 pg (26-34); Mean Corpuscular Volume 85.4 fl (80-100); Monocytes Absolute Auto 0.6 K/mm3 (0.1-0.6); Neutrophils Absolute Auto 4.3 K/mm3 (1.3-6.7); Neutrophils Percent Auto 65.7 % (45.5-73.1); Platelet Count Result 105 k/mm3 (150-375); Red Blood Count 4.46 M/mm3 (4.6-6.20); Red Cell Distribution Width 13.6 % (11.5-14.5); White Blood Count 6.6 K/mm3 (4.5-10.0)
[2021-12-31 06:20] LABS: Alanine Aminotransferase 52 U/L (4-50); Albumin Level 3.9 g/dL (3.5-5.1); Alkaline Phosphatase 70 U/L (38-126); Anion Gap 12 mmol/L (8-16); Aspartate Amino Transferase 62 U/L (17-59); Bilirubin,Total 1.2 mg/dL (0.2-1.3); Blood Urea Nitrogen 5 mg/dL (9-20); Calcium 8.5 mg/dL (8.4-10.2); Carbon Dioxide 22 mmol/L (22-30); Chloride 102 mmol/L (98-107); Estimated CRCL calculation 147 ml/min; Estimated Glomerular Filt Rate > 60; Glucose 79 mg/dL (65-110); Lipase 544 U/L (23-300); Magnesium 1.9 mg/dL (1.6-2.3); Potassium 3.1 mmol/L (3.4-5.0); Sodium 136 mmol/L (137-145)
[2021-12-31 07:07] LABS: Hepatitis B Surface Antigen Negative (Negative)
[2021-12-31 07:13] LABS: HAV RESULT Negative (Negative); Hepatitis B Core IgM Result Negative (Negative)
[2021-12-31 07:25] LABS: Hepatitis C Virus Antibody Negative (Negative)
[2021-12-31] MEDS: ONDANSETRON INJ 4 MG/2 ML VIAL IV PUSH ×2 (08:48→14:58)
[2021-12-31] MEDS: THIAMINE HCL 200 MG/2 ML VIAL 100 MG IV PUSH (08:49)
[2021-12-31] MEDS: PERFLUTREN LIPID MICROSPHERES 1.5 ML VIAL DILUTED TO 10 ML TOTAL VOLUME IV PUSH (09:32)
--- NOTE | 2021-12-31 09:33 | IVDEFINITY ---
Prior to administration of IV Definity the patient was educated on the risks and benefits of the imaging enhancing agent including potential adverse side effects. The patient verbalized understanding. Allergies were verified. No exclusion criteria were identified and at least one of the following inclusion criteria were met: 1) physician request, 2) patient technically difficult to image (per the [place] [employer] guidelines of two or more segments not discernable within the apical view), or 3) questionable left ventricular function. ?
[2021-12-31] MEDS: chlordiazePOXIDE (*CRX) 25 MG CAPSULE PO (09:35)
[2021-12-31] MEDS: POTASSIUM CHLORIDE 20 MEQ PACKET (FOR LIQUID) 40 MEQ PO (09:36)
[2021-12-31] MEDS: FOLIC ACID 1 MG/0.2 ML INJ IV PUSH (09:36)
[2021-12-31] MEDS: FAMOTIDINE 20 MG/2 ML VIAL IV PUSH ×2 (09:37→20:43)
--- NOTE | 2021-12-31 11:30 | P.PNIM_ITS ---
Progress Note: A&P Assessment and Plan (1) Acute pancreatitis: Qualifiers: Acute pancreatitis complication: unspecified Pancreatitis type: other Qualified Code(s): K85.80 - Other acute pancreatitis without necrosis or infection Code(s): K85.90 - Acute pancreatitis without necrosis or infection, unspecified Status: Acute Assessment and Plan: * Presented with back pain and abdominal pain * Lipase was 3563 upon admission, today 544 * Advance diet to clear liquids, did not do well with diet advancement * IV fluids, Continue fluids since he was unable to tolerate a diet * Probably from ETOH abuse * Liver enzymes elevated at 62/52 * Continue diladid for pain control * Trend lipase * ETOH cessation (2) Abnormal liver function: Code(s): R94.5 - Abnormal results of liver function studies Status: Acute Assessment and Plan: * Liver enzymes elevated * Probably related to ETOH abuse * hold statin * Trend liver enzymes * Hep panel negative continues to be negative * Consider ultrasound, last ultrasound showed hepatic stenosis 11/13/20 (3) Left renal mass: Code(s): N28.89 - Other specified disorders of kidney and ureter Status: Acute Assessment and Plan: * The patient is aware that he has a cystic lesion * no change in the size since his last CT scan * Continue outpatient follow up (4) Alcoholism: Code(s): F10.20 - Alcohol dependence, uncomplicated Status: Acute Assessment and Plan: * Folic acid IV and thiamin IV * CIWA * Add Librium 25 Q12H PRN * P.r.n. Ativan * Continues to drink * Should consider some outpatient therapy for alcoholism, care coordination has been consulted (5) Gout: Code(s): M10.9 - Gout, unspecified Status: Acute Assessment and Plan: * No flare-up at this time (6) HTN (hypertension): Code(s): I10 - Essential (primary) hypertension Status: Chronic Assessment and Plan: * BP is high at 145/80 * hydralazine with parameters ordered, and metoprolol also on board * Amlodipine 10mg PO daily, metoprolol 50mg PO BID * Noncompliant with medications * Continue to trend BP * adjust therapy as indicated (7) Hyperlipidemia: Code(s): E78.5 - Hyperlipidemia, unspecified Status: Chronic Assessment and Plan: * Lipid profile is within normal limits * Hold statins for now due to his elevated liver enzymes (8) Angina at rest: Code(s): I20.8 - Other forms of angina pectoris Status: Acute Assessment and Plan: * Trops negative 0.016, 0.015 * EKG shows ST * Probably related to pancreatitis/GERD/Hypertension * ECHO pending Subjective Date/time seen: 12/31/21 11:30 Interval history: Date/Time: 12/29/21 13:52 This is a 36-year-old male patient to has had at least 2 episodes of pancreatitis last year July and September. The patient has a history of alcoholism. The patient stated that he did not drink until just recently he only had a couple drinks. And this was approximately 1 week ago. The patient is starting a new job and has not had any insurance and has not been taking any of his cholesterol blood pressure medicines. The patient has been complaining of upper back pain for 3 days with abdominal pain starting 30 minutes prior to arrival with intermittent ches
--- NOTE | 2021-12-31 11:30 | PM.IMPN ---
Progress Note: A&P Assessment and Plan (1) Acute pancreatitis: Qualifiers: Acute pancreatitis complication: unspecified Pancreatitis type: other Qualified Code(s): K85.80 - Other acute pancreatitis without necrosis or infection Code(s): K85.90 - Acute pancreatitis without necrosis or infection, unspecified Status: Acute Assessment and Plan: Presented with back pain and abdominal pain Lipase was 3563 upon admission, today 544 Advance diet to clear liquids, did not do well with diet advancement IV fluids, Continue fluids since he was unable to tolerate a diet Probably from ETOH abuse Liver enzymes elevated at 62/52 Continue diladid for pain control Trend lipase ETOH cessation (2) Abnormal liver function: Code(s): R94.5 - Abnormal results of liver function studies Status: Acute Assessment and Plan: Liver enzymes elevated Probably related to ETOH abuse hold statin Trend liver enzymes Hep panel negative continues to be negative Consider ultrasound, last ultrasound showed hepatic stenosis 11/13/20 (3) Left renal mass: Code(s): N28.89 - Other specified disorders of kidney and ureter Status: Acute Assessment and Plan: The patient is aware that he has a cystic lesion no change in the size since his last CT scan Continue outpatient follow up (4) Alcoholism: Code(s): F10.20 - Alcohol dependence, uncomplicated Status: Acute Assessment and Plan: Folic acid IV and thiamin IV CIWA Add Librium 25 Q12H PRN P.r.n. Ativan Continues to drink Should consider some outpatient therapy for alcoholism, care coordination has been consulted (5) Gout: Code(s): M10.9 - Gout, unspecified Status: Acute Assessment and Plan: No flare-up at this time (6) HTN (hypertension): Code(s): I10 - Essential (primary) hypertension Status: Chronic Assessment and Plan: BP is high at 145/80 hydralazine with parameters ordered, and metoprolol also on board Amlodipine 10mg PO daily, metoprolol 50mg PO BID Noncompliant with medications Continue to trend BP adjust therapy as indicated (7) Hyperlipidemia: Code(s): E78.5 - Hyperlipidemia, unspecified Status: Chronic Assessment and Plan: Lipid profile is within normal limits Hold statins for now due to his elevated liver enzymes (8) Angina at rest: Code(s): I20.8 - Other forms of angina pectoris Status: Acute Assessment and Plan: Trops negative 0.016, 0.[address] Probably related to pancreatitis/GERD/Hypertension ECHO pending Subjective Date/time seen: 12/31/21 11:30 Interval history: Date/Time: 12/29/21 13:52 This is a 36-year-old male patient to has had at least 2 episodes of pancreatitis last year July and September. The patient has a history of alcoholism. The patient stated that he did not drink until just recently he only had a couple drinks. And this was approximately 1 week ago. The patient is starting a new job and has not had any insurance and has not been taking any of his cholesterol blood pressure medicines. The patient has been complaining of upper back pain for 3 days with abdominal pain starting 30 minutes prior to arrival with intermittent chest pain. The chest pain is worse with inspiration. 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 It is worse with certain movements. He tried to leave at home without any relief. The patient admitted to only drinking twice a week. He was rating his pain at 10 out of a 10. The patient was given fentanyl in the emergency room but stated that did not help. Platelet count is 131. D-dimer is 1.05. Sodium 132. Glucose 131. AST is 140 to, and ALT is 90. Lipase is 3563. The patient was started on IV fluids, given thiamin, fentanyl,
[2021-12-31] MEDS: hydrALAZINE HCL 20 MG/ML VIAL 10 MG IV PUSH ×2 (15:11→20:43)
[2022-01-01] VITALS (14 sets, daily range): BP systolic 146–155; BP diastolic 86–98; PULSE 78–112; RESP 20; TEMP 36–37.3; O2SAT 97–100
[2022-01-01] MEDS: chlordiazePOXIDE (*CRX) 25 MG CAPSULE PO ×2 (01:01→21:53)
[2022-01-01] MEDS: METOPROLOL TARTRATE INJ 5 MG/5 ML VIAL IV PUSH ×3 (01:02→16:47)
[2022-01-01] MEDS: HYDROmorphone HCL INJ (*CRX) 1 MG/ML SYR IV PUSH ×5 (01:06→21:53)
[2022-01-01] MEDS: hydrALAZINE HCL 20 MG/ML VIAL 10 MG IV PUSH (03:43)
[2022-01-01] MEDS: predniSONE 20 MG TABLET 40 MG PO (03:55)
[2022-01-01] MEDS: SODIUM CHLORIDE 0.9% IV 1,000 ML 125 ML IV CONT ×2 (04:34→16:47)
[2022-01-01 06:03] LABS: Basophils Absolute Auto 0.1 K/mm3 (0.0-0.1); Eosinophils Absolute Auto 0.3 K/mm3 (0-0.3); Eosinophils Percent Auto 4.3 % (0-4.4); Hematocrit 41.4 % (42.0-52.0); Hemoglobin 13.5 g/dL (14.0-18.0); Immature Granulocyte Absolute 0.04 K/mm3 (0.00-0.031); Immature Granulocyte Percent A 0.6 % (0-0.5); Immature Platelet Fraction Pct 7.3 % (0.9-11.2); Lymphocytes Absolute Auto 0.93 K/mm3 (0.9-3.2); Mean Corpuscular HGB Conc 32.6 g/dl (32-36); Mean Corpuscular Hemoglobin 29.1 pg (26-34); Mean Corpuscular Volume 89.2 fl (80-100); Mean Platelet Volume 10.6 fl (7.4-10.4); Monocytes Absolute Auto 0.5 K/mm3 (0.1-0.6); Monocytes Percent Auto 7.3 % (2.6-8.5); Neutrophils Absolute Auto 5.3 K/mm3 (1.3-6.7); Neutrophils Percent Auto 73.8 % (45.5-73.1); Platelet Count Result 146 k/mm3 (150-375); Red Blood Count 4.64 M/mm3 (4.6-6.20); Red Cell Distribution Width 14.2 % (11.5-14.5); White Blood Count 7.2 K/mm3 (4.5-10.0)
[2022-01-01 06:27] LABS: Alanine Aminotransferase 46 U/L (4-50); Alkaline Phosphatase 68 U/L (38-126); Anion Gap 8 mmol/L (8-16); Aspartate Amino Transferase 49 U/L (17-59); Bilirubin,Total 0.9 mg/dL (0.2-1.3); Blood Urea Nitrogen 3 mg/dL (9-20); Calcium 8.6 mg/dL (8.4-10.2); Carbon Dioxide 25 mmol/L (22-30); Chloride 105 mmol/L (98-107); Estimated CRCL calculation 147 ml/min; Estimated Glomerular Filt Rate > 60; Glucose 113 mg/dL (65-110); Lipase 213 U/L (23-300); Magnesium 1.7 mg/dL (1.6-2.3); Potassium 3.3 mmol/L (3.4-5.0); Sodium 138 mmol/L (137-145)
[2022-01-01] MEDS: MAGNESIUM SULF 2 GM/WATER 50ML 2 GM/50 ML BAG IVPB (06:55)
[2022-01-01] MEDS: allopurinoL 100 MG TABLET PO ×2 (08:20→16:54)
[2022-01-01] MEDS: THIAMINE HCL 200 MG/2 ML VIAL 100 MG IV PUSH (08:20)
[2022-01-01] MEDS: FAMOTIDINE 20 MG/2 ML VIAL IV PUSH ×2 (08:20→21:48)
[2022-01-01] MEDS: FOLIC ACID 1 MG/0.2 ML INJ IV PUSH (09:02)
--- NOTE | 2022-01-01 10:15 | PM.IMPN ---
Progress Note: A&P Assessment and Plan (1) Acute pancreatitis: Qualifiers: Acute pancreatitis complication: unspecified Pancreatitis type: other Qualified Code(s): K85.80 - Other acute pancreatitis without necrosis or infection Code(s): K85.90 - Acute pancreatitis without necrosis or infection, unspecified Status: Acute Assessment and Plan: Presented with back pain and abdominal pain Lipase was 3563 upon admission, today 213 Advance diet to clear liquids, did not do well with diet advancement IV fluids, Continue fluids since he was unable to tolerate a diet Probably from ETOH abuse Liver enzymes elevated at 49/46 Continue Dilaudid for pain control Trend lipase ETOH cessation (2) Abnormal liver function: Code(s): R94.5 - Abnormal results of liver function studies Status: Acute Assessment and Plan: Liver enzymes elevated Probably related to ETOH abuse hold statin Trend liver enzymes Hep panel negative continues to be negative Consider ultrasound, last ultrasound showed hepatic stenosis 11/13/20 (3) Left renal mass: Code(s): N28.89 - Other specified disorders of kidney and ureter Status: Acute Assessment and Plan: The patient is aware that he has a cystic lesion no change in the size since his last CT scan Continue outpatient follow up (4) Alcoholism: Code(s): F10.20 - Alcohol dependence, uncomplicated Status: Acute Assessment and Plan: Folic acid IV and thiamin IV CIWA 11 today Add Librium 25 Q12H PRN P.r.n. Ativan Continues to drink Should consider some outpatient therapy for alcoholism, care coordination has been consulted (5) Gout: Code(s): M10.9 - Gout, unspecified Status: Acute Assessment and Plan: Reported that his knees were bothering him and he was not able to move them Got a dose of steroids overnight Allopurinol scheduled Will get a uric acid in the am (6) HTN (hypertension): Code(s): I10 - Essential (primary) hypertension Status: Chronic Assessment and Plan: BP is high at 149/98 hydralazine with parameters ordered, and metoprolol also on board Amlodipine 10mg PO daily, metoprolol 50mg PO BID Noncompliant with medications Continue to trend BP adjust therapy as indicated (7) Hyperlipidemia: Code(s): E78.5 - Hyperlipidemia, unspecified Status: Chronic Assessment and Plan: Lipid profile is within normal limits Hold statins for now due to his elevated liver enzymes (8) Angina at rest: Code(s): I20.8 - Other forms of angina pectoris Status: Acute Assessment and Plan: Trops negative 0.016, 0.[address] Probably related to pancreatitis/GERD/Hypertension ECHO normal systolic and diastolic dysfunction (9) Tachycardia: Code(s): R00.0 - Tachycardia, unspecified Status: Acute Assessment and Plan: HR is in the low 100s IV fluids on board Ativan for high CIWA Continue to trend HR Probably related to pain, or possible ETOH withdrawal (10) Hypokalemia: Code(s): E87.6 - Hypokalemia Status: Acute Assessment and Plan: K is 3.3 today Replace with 40mcg PO once Trend labs Labs in the am Time Spent With Patient Time with patient: Greater than 35 minutes Subjective Date/time seen: 01/01/22 1015 Interval history: Date/Time: 12/29/21 13:52 This is a 36-year-old male patient to has had at least 2 episodes of pancreatitis last year July and September. The patient has a history of alcoholism. The patient stated that he did not drink until just recently he only had a couple drinks. And this was approximately 1 week ago. The patient is starting a new job and has not had any insurance and has not been taking any of his cholesterol blood pressure medicine
--- NOTE | 2022-01-01 10:15 | P.PNIM_ITS ---
Progress Note: A&P Assessment and Plan (1) Acute pancreatitis: Qualifiers: Acute pancreatitis complication: unspecified Pancreatitis type: other Qualified Code(s): K85.80 - Other acute pancreatitis without necrosis or infection Code(s): K85.90 - Acute pancreatitis without necrosis or infection, unspecified Status: Acute Assessment and Plan: * Presented with back pain and abdominal pain * Lipase was 3563 upon admission, today 213 * Advance diet to clear liquids, did not do well with diet advancement * IV fluids, Continue fluids since he was unable to tolerate a diet * Probably from ETOH abuse * Liver enzymes elevated at 49/46 * Continue Dilaudid for pain control * Trend lipase * ETOH cessation (2) Abnormal liver function: Code(s): R94.5 - Abnormal results of liver function studies Status: Acute Assessment and Plan: * Liver enzymes elevated * Probably related to ETOH abuse * hold statin * Trend liver enzymes * Hep panel negative continues to be negative * Consider ultrasound, last ultrasound showed hepatic stenosis 11/13/20 (3) Left renal mass: Code(s): N28.89 - Other specified disorders of kidney and ureter Status: Acute Assessment and Plan: * The patient is aware that he has a cystic lesion * no change in the size since his last CT scan * Continue outpatient follow up (4) Alcoholism: Code(s): F10.20 - Alcohol dependence, uncomplicated Status: Acute Assessment and Plan: * Folic acid IV and thiamin IV * CIWA 11 today * Add Librium 25 Q12H PRN * P.r.n. Ativan * Continues to drink * Should consider some outpatient therapy for alcoholism, care coordination has been consulted (5) Gout: Code(s): M10.9 - Gout, unspecified Status: Acute Assessment and Plan: * Reported that his knees were bothering him and he was not able to move them * Got a dose of steroids overnight * Allopurinol scheduled * Will get a uric acid in the am (6) HTN (hypertension): Code(s): I10 - Essential (primary) hypertension Status: Chronic Assessment and Plan: * BP is high at 149/98 * hydralazine with parameters ordered, and metoprolol also on board * Amlodipine 10mg PO daily, metoprolol 50mg PO BID * Noncompliant with medications * Continue to trend BP * adjust therapy as indicated (7) Hyperlipidemia: Code(s): E78.5 - Hyperlipidemia, unspecified Status: Chronic Assessment and Plan: * Lipid profile is within normal limits * Hold statins for now due to his elevated liver enzymes (8) Angina at rest: Code(s): I20.8 - Other forms of angina pectoris Status: Acute Assessment and Plan: * Trops negative 0.016, 0.015 * EKG shows ST * Probably related to pancreatitis/GERD/Hypertension * ECHO normal systolic and diastolic dysfunction (9) Tachycardia: Code(s): R00.0 - Tachycardia, unspecified Status: Acute Assessment and Plan: * HR is in the low 100s * IV fluids on board * Ativan for high CIWA * Continue to trend HR * Probably related to pain, or possible ETOH withdrawal (10) Hypokalemia: Code(s): E87.6 - Hypokalemia Status: Acute Assessment and Plan: * K is 3.3 today * Replace with 40mcg PO once
[2022-01-02] VITALS (14 sets, daily range): BP systolic 145–159; BP diastolic 87–110; PULSE 65–93; RESP 18–21; TEMP 36–36.4; O2SAT 94–100
[2022-01-02] MEDS: METOPROLOL TARTRATE INJ 5 MG/5 ML VIAL IV PUSH ×3 (00:35→15:43)
[2022-01-02] MEDS: SODIUM CHLORIDE 0.9% IV 1,000 ML 125 ML IV CONT ×3 (00:52→16:48)
[2022-01-02] MEDS: HYDROmorphone HCL INJ (*CRX) 1 MG/ML SYR IV PUSH ×5 (04:01→20:12)
[2022-01-02 06:50] LABS: Basophils Absolute Auto 0.1 K/mm3 (0.0-0.1); Basophils Percent Auto 0.9 % (0.2-1.2); Eosinophils Absolute Auto 0.2 K/mm3 (0-0.3); Eosinophils Percent Auto 2.1 % (0-4.4); Hemoglobin 12.9 g/dL (14.0-18.0); Immature Granulocyte Absolute 0.03 K/mm3 (0.00-0.031); Immature Granulocyte Percent A 0.4 % (0-0.5); Immature Platelet Fraction Pct 8.5 % (0.9-11.2); Lymphocytes Absolute Auto 2.26 K/mm3 (0.9-3.2); Lymphocytes Percent Auto 27.8 % (18.3-44.2); Mean Corpuscular HGB Conc 33.1 g/dl (32-36); Mean Corpuscular Hemoglobin 29.3 pg (26-34); Mean Corpuscular Volume 88.4 fl (80-100); Mean Platelet Volume 11.8 fl (7.4-10.4); Monocytes Absolute Auto 0.9 K/mm3 (0.1-0.6); Neutrophils Absolute Auto 4.7 K/mm3 (1.3-6.7); Neutrophils Percent Auto 57.8 % (45.5-73.1); Platelet Count Result 147 k/mm3 (150-375); Red Blood Count 4.41 M/mm3 (4.6-6.20); Red Cell Distribution Width 14.3 % (11.5-14.5); White Blood Count 8.1 K/mm3 (4.5-10.0)
[2022-01-02] MEDS: THIAMINE HCL 200 MG/2 ML VIAL 100 MG IV PUSH (09:01)
[2022-01-02] MEDS: allopurinoL 100 MG TABLET PO ×2 (09:02→16:49)
[2022-01-02] MEDS: FAMOTIDINE 20 MG/2 ML VIAL IV PUSH ×2 (09:02→20:08)
[2022-01-02] MEDS: FOLIC ACID 1 MG/0.2 ML INJ IV PUSH (09:15)
[2022-01-02 09:31] LABS: Uric Acid 6.5 mg/dL (3.5-8.5)
[2022-01-02 12:48] LABS: Alanine Aminotransferase 35 U/L (4-50); Albumin Level 3.1 g/dL (3.5-5.1); Alkaline Phosphatase 52 U/L (38-126); Anion Gap 8 mmol/L (8-16); Aspartate Amino Transferase 41 U/L (17-59); Bilirubin,Total 0.7 mg/dL (0.2-1.3); Blood Urea Nitrogen 3 mg/dL (9-20); Calcium 8.3 mg/dL (8.4-10.2); Carbon Dioxide 24 mmol/L (22-30); Chloride 106 mmol/L (98-107); Estimated CRCL calculation 130 ml/min; Estimated Glomerular Filt Rate > 60; Glucose 137 mg/dL (65-110); Magnesium 1.9 mg/dL (1.6-2.3); Potassium 3.2 mmol/L (3.4-5.0); Sodium 138 mmol/L (137-145)
--- NOTE | 2022-01-02 13:00 | P.PNIM_ITS ---
Progress Note: A&P Assessment and Plan (1) Acute pancreatitis: Qualifiers: Acute pancreatitis complication: unspecified Pancreatitis type: other Qualified Code(s): K85.80 - Other acute pancreatitis without necrosis or infection Code(s): K85.90 - Acute pancreatitis without necrosis or infection, unspecified Status: Acute Assessment and Plan: * Presented with back pain and abdominal pain * Lipase was 3563 upon admission, 213 on 01/01/22 * Advance diet to clear liquids, did not do well with diet advancement * IV fluids, Continue fluids since he was unable to tolerate a diet * Probably from ETOH abuse * Liver enzymes elevated at 49/46 * Continue Dilaudid for pain control * Trend lipase * ETOH cessation (2) Abnormal liver function: Code(s): R94.5 - Abnormal results of liver function studies Status: Acute Assessment and Plan: * Liver enzymes elevated * Probably related to ETOH abuse * hold statin * Trend liver enzymes * Hep panel negative continues to be negative * Consider ultrasound, last ultrasound showed hepatic stenosis 11/13/20 (3) Left renal mass: Code(s): N28.89 - Other specified disorders of kidney and ureter Status: Acute Assessment and Plan: * The patient is aware that he has a cystic lesion * no change in the size since his last CT scan * Continue outpatient follow up (4) Alcoholism: Code(s): F10.20 - Alcohol dependence, uncomplicated Status: Acute Assessment and Plan: * Folic acid IV and thiamin IV * CIWA 8 today * Add Librium 25 Q12H PRN * P.r.n. Ativan * Continues to drink * Should consider some outpatient therapy for alcoholism, care coordination has been consulted (5) Gout: Code(s): M10.9 - Gout, unspecified Status: Acute Assessment and Plan: * Reported that his knees were bothering him and he was not able to move them * Got a dose of steroids overnight * Allopurinol scheduled * Will get a uric acid in the am (6) HTN (hypertension): Code(s): I10 - Essential (primary) hypertension Status: Chronic Assessment and Plan: * BP is high at 159/87 * hydralazine with parameters ordered, and metoprolol also on board * Amlodipine 10mg PO daily, metoprolol 50mg PO BID * Noncompliant with medications * Continue to trend BP * adjust therapy as indicated (7) Hyperlipidemia: Code(s): E78.5 - Hyperlipidemia, unspecified Status: Chronic Assessment and Plan: * Lipid profile is within normal limits * Hold statins for now due to his elevated liver enzymes (8) Angina at rest: Code(s): I20.8 - Other forms of angina pectoris Status: Acute Assessment and Plan: * Trops negative 0.016, 0.015 * EKG shows ST * Probably related to pancreatitis/GERD/Hypertension * ECHO normal systolic and diastolic dysfunction (9) Tachycardia: Code(s): R00.0 - Tachycardia, unspecified Status: Acute Assessment and Plan: * HR is in the low 100s, HR more stable in the 70-80 * IV fluids on board * Ativan for high CIWA * Continue to trend HR * Probably related to pain, or possible ETOH withdrawal (10) Hypokalemia: Code(s): E87.6 - Hypokalemia Status: Acute Assessment and Plan: * K is 3.2 today
--- NOTE | 2022-01-02 13:00 | PM.IMPN ---
Progress Note: A&P Assessment and Plan (1) Acute pancreatitis: Qualifiers: Acute pancreatitis complication: unspecified Pancreatitis type: other Qualified Code(s): K85.80 - Other acute pancreatitis without necrosis or infection Code(s): K85.90 - Acute pancreatitis without necrosis or infection, unspecified Status: Acute Assessment and Plan: Presented with back pain and abdominal pain Lipase was 3563 upon admission, 213 on 01/01/22 Advance diet to clear liquids, did not do well with diet advancement IV fluids, Continue fluids since he was unable to tolerate a diet Probably from ETOH abuse Liver enzymes elevated at 49/46 Continue Dilaudid for pain control Trend lipase ETOH cessation (2) Abnormal liver function: Code(s): R94.5 - Abnormal results of liver function studies Status: Acute Assessment and Plan: Liver enzymes elevated Probably related to ETOH abuse hold statin Trend liver enzymes Hep panel negative continues to be negative Consider ultrasound, last ultrasound showed hepatic stenosis 11/13/20 (3) Left renal mass: Code(s): N28.89 - Other specified disorders of kidney and ureter Status: Acute Assessment and Plan: The patient is aware that he has a cystic lesion no change in the size since his last CT scan Continue outpatient follow up (4) Alcoholism: Code(s): F10.20 - Alcohol dependence, uncomplicated Status: Acute Assessment and Plan: Folic acid IV and thiamin IV CIWA 8 today Add Librium 25 Q12H PRN P.r.n. Ativan Continues to drink Should consider some outpatient therapy for alcoholism, care coordination has been consulted (5) Gout: Code(s): M10.9 - Gout, unspecified Status: Acute Assessment and Plan: Reported that his knees were bothering him and he was not able to move them Got a dose of steroids overnight Allopurinol scheduled Will get a uric acid in the am (6) HTN (hypertension): Code(s): I10 - Essential (primary) hypertension Status: Chronic Assessment and Plan: BP is high at 159/87 hydralazine with parameters ordered, and metoprolol also on board Amlodipine 10mg PO daily, metoprolol 50mg PO BID Noncompliant with medications Continue to trend BP adjust therapy as indicated (7) Hyperlipidemia: Code(s): E78.5 - Hyperlipidemia, unspecified Status: Chronic Assessment and Plan: Lipid profile is within normal limits Hold statins for now due to his elevated liver enzymes (8) Angina at rest: Code(s): I20.8 - Other forms of angina pectoris Status: Acute Assessment and Plan: Trops negative 0.016, 0.[address] Probably related to pancreatitis/GERD/Hypertension ECHO normal systolic and diastolic dysfunction (9) Tachycardia: Code(s): R00.0 - Tachycardia, unspecified Status: Acute Assessment and Plan: HR is in the low 100s, HR more stable in the 70-80 IV fluids on board Ativan for high CIWA Continue to trend HR Probably related to pain, or possible ETOH withdrawal (10) Hypokalemia: Code(s): E87.6 - Hypokalemia Status: Acute Assessment and Plan: K is 3.2 today Replace with 40mcg PO once Trend labs Labs in the am Time Spent With Patient Time with patient: Greater than 35 minutes Subjective Date/time seen: 01/02/22 1300 Interval history: Date/Time: 12/29/21 13:52 This is a 36-year-old male patient to has had at least 2 episodes of pancreatitis last year July and September. The patient has a history of alcoholism. The patient stated that he did not drink until just recently he only had a couple drinks. And this was approximately 1 week ago. The patient is starting a new job and has not had any insurance and has not been taking any of his ch
[2022-01-02] MEDS: hydrALAZINE HCL 20 MG/ML VIAL 10 MG IV PUSH (14:25)
[2022-01-02] MEDS: POTASSIUM CHLORIDE 20 MEQ PACKET (FOR LIQUID) 40 MEQ PO (15:43)
[2022-01-02] MEDS: ONDANSETRON INJ 4 MG/2 ML VIAL IV PUSH (16:46)
[2022-01-03] VITALS: BP 145/92; PULSE 74
[2022-01-03] MEDS: HYDROmorphone HCL INJ (*CRX) 1 MG/ML SYR IV PUSH ×3 (00:15→06:22)
[2022-01-03] MEDS: SODIUM CHLORIDE 0.9% IV 1,000 ML 125 ML IV CONT ×2 (00:17→08:10)
[2022-01-03 03:11] VITALS: BP 145/92
[2022-01-03 04:00] VITALS: PULSE 74
[2022-01-03 05:59] LABS: Basophils Absolute Auto 0.1 K/mm3 (0.0-0.1); Eosinophils Absolute Auto 0.2 K/mm3 (0-0.3); Eosinophils Percent Auto 3.4 % (0-4.4); Hemoglobin 13.5 g/dL (14.0-18.0); Immature Granulocyte Absolute 0.03 K/mm3 (0.00-0.031); Immature Granulocyte Percent A 0.4 % (0-0.5); Lymphocytes Absolute Auto 2.07 K/mm3 (0.9-3.2); Lymphocytes Percent Auto 29.4 % (18.3-44.2); Mean Corpuscular HGB Conc 33.8 g/dl (32-36); Mean Corpuscular Hemoglobin 29.6 pg (26-34); Mean Corpuscular Volume 87.7 fl (80-100); Mean Platelet Volume 10.1 fl (7.4-10.4); Monocytes Absolute Auto 0.9 K/mm3 (0.1-0.6); Monocytes Percent Auto 12.8 % (2.6-8.5); Neutrophils Absolute Auto 3.7 K/mm3 (1.3-6.7); Platelet Count Result 186 k/mm3 (150-375); Red Blood Count 4.56 M/mm3 (4.6-6.20); Red Cell Distribution Width 14.3 % (11.5-14.5)
[2022-01-03 06:00] VITALS: BP 158/93; PULSE 85; RESP 20; TEMP 36.9; O2SAT 98
[2022-01-03 06:08] LABS: Alanine Aminotransferase 46 U/L (4-50); Albumin Level 3.8 g/dL (3.5-5.1); Alkaline Phosphatase 57 U/L (38-126); Anion Gap 8 mmol/L (8-16); Aspartate Amino Transferase 49 U/L (17-59); Bilirubin,Total 0.5 mg/dL (0.2-1.3); Blood Urea Nitrogen 4 mg/dL (9-20); Calcium 8.6 mg/dL (8.4-10.2); Carbon Dioxide 28 mmol/L (22-30); Chloride 105 mmol/L (98-107); Estimated CRCL calculation 130 ml/min; Estimated Glomerular Filt Rate > 60; Glucose 85 mg/dL (65-110); Magnesium 1.8 mg/dL (1.6-2.3); Potassium 3.6 mmol/L (3.4-5.0); Sodium 141 mmol/L (137-145)
[2022-01-03 08:10] VITALS: PULSE 86
[2022-01-03] MEDS: METOPROLOL TARTRATE INJ 5 MG/5 ML VIAL IV PUSH (08:10)
[2022-01-03] MEDS: allopurinoL 100 MG TABLET PO (08:11)
[2022-01-03] MEDS: FAMOTIDINE 20 MG/2 ML VIAL IV PUSH (08:11)
[2022-01-03] MEDS: THIAMINE HCL 200 MG/2 ML VIAL 100 MG IV PUSH (08:11)
[2022-01-03] MEDS: chlordiazePOXIDE (*CRX) 25 MG CAPSULE PO (08:26)
[2022-01-03] MEDS: FOLIC ACID 1 MG/0.2 ML INJ IV PUSH (08:52)
--- NOTE | 2022-01-03 09:15 | PM.DS ---
DS: Admitting Diagnosis Discharge Date 01/03/22 0915 Admitting Diagnosis ETOH induced pancreatitis DS: Discharge Diagnosis Discharge Diagnosis (1) Acute pancreatitis: Qualifiers: Acute pancreatitis complication: unspecified Pancreatitis type: other Qualified Code(s): K85.80 - Other acute pancreatitis without necrosis or infection Code(s): K85.90 - Acute pancreatitis without necrosis or infection, unspecified Status: Acute Assessment and Plan: Presented with back pain and abdominal pain Lipase was 3563 upon admission, 213 on 01/01/22 Advance diet to clear liquids, did not do well with diet advancement IV fluids, Continue fluids since he was unable to tolerate a diet Probably from ETOH abuse Liver enzymes elevated at 49/46 Continue Dilaudid for pain control Trend lipase ETOH cessation (2) Abnormal liver function: Code(s): R94.5 - Abnormal results of liver function studies Status: Acute Assessment and Plan: Liver enzymes elevated Probably related to ETOH abuse hold statin Trend liver enzymes Hep panel negative continues to be negative Consider ultrasound, last ultrasound showed hepatic stenosis 11/13/20 (3) Left renal mass: Code(s): N28.89 - Other specified disorders of kidney and ureter Status: Acute Assessment and Plan: The patient is aware that he has a cystic lesion no change in the size since his last CT scan Continue outpatient follow up (4) Alcoholism: Code(s): F10.20 - Alcohol dependence, uncomplicated Status: Acute Assessment and Plan: Folic acid IV and thiamin IV CIWA 8 today Add Librium 25 Q12H PRN P.r.n. Ativan Continues to drink Should consider some outpatient therapy for alcoholism, care coordination has been consulted (5) Gout: Code(s): M10.9 - Gout, unspecified Status: Acute Assessment and Plan: Reported that his knees were bothering him and he was not able to move them Got a dose of steroids overnight Allopurinol scheduled Will get a uric acid 6.5 (6) HTN (hypertension): Code(s): I10 - Essential (primary) hypertension Status: Chronic Assessment and Plan: BP is high at 145/92 hydralazine with parameters ordered, and metoprolol also on board Amlodipine 10mg PO daily, metoprolol 50mg PO BID Noncompliant with medications Continue to trend BP adjust therapy as indicated (7) Hyperlipidemia: Code(s): E78.5 - Hyperlipidemia, unspecified Status: Chronic Assessment and Plan: Lipid profile is within normal limits Hold statins for now due to his elevated liver enzymes (8) Angina at rest: Code(s): I20.8 - Other forms of angina pectoris Status: Acute Assessment and Plan: Trops negative 0.016, 0.[address] Probably related to pancreatitis/GERD/Hypertension ECHO normal systolic and diastolic dysfunction (9) Tachycardia: Code(s): R00.0 - Tachycardia, unspecified Status: Acute Assessment and Plan: HR is in the low 100s, HR more stable in the 70-80 IV fluids on board Ativan for high CIWA Continue to trend HR Probably related to pain, or possible ETOH withdrawal (10) Hypokalemia: Code(s): E87.6 - Hypokalemia Status: Acute Assessment and Plan: K is 3.6 today Trend labs Labs in the am DS: Summary Hospital Course Hospital Course: Patient is a 36-year-old male with a past medical history of gout, alcohol abuse, hypertension, hyperlipidemia, pancreatitis who presented to the ED with severe abdominal pain accompanied with nausea and vomiting. Upon arrival lipase was noted to be 3563. Patient started on IV fluids and put is an NPO diet. Lipase was on trend and has decreased is 213 on 01/01/22. patient was given IV analgesics for pain. Patient was also start
--- NOTE | 2022-01-03 09:15 | P.DS_ITS ---
DS: Admitting Diagnosis Discharge Date 01/03/22 0915 Admitting Diagnosis ETOH induced pancreatitis DS: Discharge Diagnosis Discharge Diagnosis (1) Acute pancreatitis: Qualifiers: Acute pancreatitis complication: unspecified Pancreatitis type: other Qualified Code(s): K85.80 - Other acute pancreatitis without necrosis or infection Code(s): K85.90 - Acute pancreatitis without necrosis or infection, unspecified Status: Acute Assessment and Plan: * Presented with back pain and abdominal pain * Lipase was 3563 upon admission, 213 on 01/01/22 * Advance diet to clear liquids, did not do well with diet advancement * IV fluids, Continue fluids since he was unable to tolerate a diet * Probably from ETOH abuse * Liver enzymes elevated at 49/46 * Continue Dilaudid for pain control * Trend lipase * ETOH cessation (2) Abnormal liver function: Code(s): R94.5 - Abnormal results of liver function studies Status: Acute Assessment and Plan: * Liver enzymes elevated * Probably related to ETOH abuse * hold statin * Trend liver enzymes * Hep panel negative continues to be negative * Consider ultrasound, last ultrasound showed hepatic stenosis 11/13/20 (3) Left renal mass: Code(s): N28.89 - Other specified disorders of kidney and ureter Status: Acute Assessment and Plan: * The patient is aware that he has a cystic lesion * no change in the size since his last CT scan * Continue outpatient follow up (4) Alcoholism: Code(s): F10.20 - Alcohol dependence, uncomplicated Status: Acute Assessment and Plan: * Folic acid IV and thiamin IV * CIWA 8 today * Add Librium 25 Q12H PRN * P.r.n. Ativan * Continues to drink * Should consider some outpatient therapy for alcoholism, care coordination has been consulted (5) Gout: Code(s): M10.9 - Gout, unspecified Status: Acute Assessment and Plan: * Reported that his knees were bothering him and he was not able to move them * Got a dose of steroids overnight * Allopurinol scheduled * Will get a uric acid 6.5 (6) HTN (hypertension): Code(s): I10 - Essential (primary) hypertension Status: Chronic Assessment and Plan: * BP is high at 145/92 * hydralazine with parameters ordered, and metoprolol also on board * Amlodipine 10mg PO daily, metoprolol 50mg PO BID * Noncompliant with medications * Continue to trend BP * adjust therapy as indicated (7) Hyperlipidemia: Code(s): E78.5 - Hyperlipidemia, unspecified Status: Chronic Assessment and Plan: * Lipid profile is within normal limits * Hold statins for now due to his elevated liver enzymes (8) Angina at rest: Code(s): I20.8 - Other forms of angina pectoris Status: Acute Assessment and Plan: * Trops negative 0.016, 0.015 * EKG shows ST * Probably related to pancreatitis/GERD/Hypertension * ECHO normal systolic and diastolic dysfunction (9) Tachycardia: Code(s): R00.0 - Tachycardia, unspecified Status: Acute Assessment and Plan: * HR is in the low 100s, HR more stable in the 70-80 * IV fluids on board * Ativan for high CIWA * Continue to trend HR * Probably related to pain, or possible ETOH withdrawal (10) Hypokalemia:
[2022-01-03] MEDS: ATORVASTATIN 20 MG TABLET PO (10:27)
[2022-01-03] MEDS: traMADol HCL (*CRX) 50 MG TABLET PO (10:27)
[2022-01-03] MEDS: amLODIPine BESYLATE 5 MG TABLET PO (10:27)
[2022-01-03] MEDS: FAMOTIDINE 20 MG TABLET PO (10:27)
[2022-01-03 14:00] VITALS: BP 171/105; PULSE 85; RESP 18; TEMP 36.2; O2SAT 100
--- NOTE | 2022-01-03 14:30 | PC.NURSE ---
On 01/03/22, the student, [Shelby Reed], provided care and completed [employer] documentation on this patient. I have reviewed the student's documentation and agree with the findings.
== END 2022-01-03 14:17 | disposition home or self-care (01) | DRG 282 ==
LOC: ANHED 13:55 → ANH2MED 15:28
PROVIDERS: Admitting Provider Internal Medicine; Emergency Provider Nurse Practitioner Family; PCP Family Medicine; Visit Provider Nurse Practitioner
DX: K85.20 Alcohol induced acute pancreatitis without necrosis or infection (principal); F10.232 Alcohol dependence with withdrawal with perceptual disturbance; E87.6 Hypokalemia; M10.9 Gout, unspecified; N28.89 Other specified disorders of kidney and ureter; E78.5 Hyperlipidemia, unspecified; I10 Essential (primary) hypertension; K21.9 Gastro-esophageal reflux disease without esophagitis; R00.0 Tachycardia, unspecified; I20.8 Other forms of angina pectoris; E66.9 Obesity, unspecified; Z68.38 Body mass index [BMI] 38.0-38.9, adult; Z91.14 Patient's other noncompliance with medication regimen
CPT/HCPCS: 36415; 71045; 71275; 74177; 80048; 80053; 80061; 80074; 81001; 83690; 83735; 83880; 84484; 84550; 85025; 85055; 85380; 85610; 85730; 93005; 96361; 96374; 96375; 99285; A9270; C8929; J0360; J1170; J1200; J2060; J2405; J3010; J3411; J3475; J7030; J7512; Q9957; Q9967

== ENCOUNTER 2023-09-16 10:02 | Emergency (ER) | payer OTHER, SELFPAY ==
[2023-09-16 10:10] VITALS: BP 130/73; PULSE 101; RESP 20; TEMP 36.8; O2SAT 97
--- NOTE | 2023-09-16 10:35 | ED.EXTPRO ---
HPI - Extremity Problem General Chief complaint: Extremity Problem,Nontraumatic Stated complaint: Left Knee Pain Time Seen by Provider: 09/16/23 10:36 Source: patient, RN notes reviewed and old records reviewed Mode of arrival: ambulatory Limitations: no limitations History of Present Illness HPI Narrative: 38-year-old male who presents to [facility] with complaints pain to his left knee for 2 day duration, with reported history of previous episodes of gout to that knee. Patient denies any recent injury to knee reports that he has had Gout before. Patient has history of alcohol abuse and states that he is 90 days sober and is attending outpatient rehab program.Left knee is swollen and painful ambulatory with limping gait. MD Complaint: other (Left knee pain and swelling) Onset (ago): day(s) (2) Location: lower extremity (left knee) Severity scale (1-10): 10 Quality: aching and sharp Exacerbating factors: weight bearing and walking Related Data Allergies Allergy/AdvReac Type Severity Reaction Status Date / Time codeine Allergy Mild Hives / Verified 09/16/23 10:16 Red Face morphine Allergy Mild Itching Verified 09/16/23 10:16 Review of Systems Review of Systems: CONSTITUTIONAL: Denies fever, chills, or sweats. EYES: Denies visual changes, redness, or discharge. ENT: Denies rhinorrhea, congestion, sore throat, or otalgia. CARDIOVASCULAR: Denies chest pain, palpitations, or edema. RESPIRATORY: Denies cough or dyspnea. GASTROINTESTINAL: Denies abdominal pain, nausea, vomiting, or diarrhea. GENITOURINARY: Denies dysuria or hematuria. SKIN: Denies rash or itching. MUSCULOSKELETAL: Denies back pain, positive for left knee joint pain, or myalgia. NEUROLOGIC: Denies headache, numbness, or weakness. PSYCHIATRIC: Denies anxiety or depression. All systems reviewed & are unremarkable except as noted in HPI and below PMFSH Past Medical History Medical History Alcohol abuse Gout HTN (hypertension) Hyperlipidemia Hyperlipidemia due to dietary fat intake Pancreatitis Surgical History Surgical History No history of previous surgery Family History Family History Father Cancer Hypertension Mother Hypertension Social History Social History Social History: /seperated from . He just started working in a Warehouse. He lives with his dad and has 0 children. Patient admits to drinking at least twice a week. The patient used to drink more heavily. He denies any tobacco or marijuana. No durable power admitted attorneys for healthcare. Code status full code. Smoking status: Never smoker Second hand tobacco smoke exposure: No Alcohol intake: former Drinks per week: 12 Alcohol use details: a pint a week Substance use: never Substance use type: does not use Other substance usage details: 1 pint vodka/daily; 5 beers/week Last use: 11/06 Living arrangements: with family Occupation/Education: occupation Gender identity (if verbalized by the patient): Male Spiritual care concerns: No Agree to blood products: Yes Comments At time of signature, agree with nursing past medical, surgical, social and family history. There is no relevant family history pertinent to the presenting complaint Exam Narrative: GENERAL: Well-appearing, well-nourished, and in some acute distress related to his pain HEAD: Normocephalic, atraumatic. EYES: PERRLA and EOMI. ENT: Nares clear, no rhinorrhea or epistaxis. Mucous membranes moist. NECK: Supple.no lymphadenopathy CHEST: Clear to auscultation. No respiratory distress.SAO2 97% on room air HEART: Regular rate and rhythm. No murmur heard. Normal peripheral pulses. ABDOMEN: Soft, nontender, nondistended, normal active bowel sounds. EXTREMITIES:
== END 2023-09-16 10:50 | disposition home or self-care (01) ==
PROVIDERS: Emergency Provider Registered Nurse; PCP Family Medicine
DX: M10.9 Gout, unspecified (principal); I10 Essential (primary) hypertension; E78.5 Hyperlipidemia, unspecified
CPT/HCPCS: 99213; G0463